=== PATIENT | male | born 1960 | race Caucasian/White ===

== ENCOUNTER → 2017-12-17 14:55 | Outpatient (CLI) | payer BC, SELFPAY ==
[2017-12-17 18:35] LABS: Absolute Lymphocyte Count 1.45 X10^3/ul (0.83-4.51); Absolute Neutrophil Count 3.6 X10^3/uL (2.0-7.7); Basophil# 0.03 X10^3/uL; Basophil% 0.5 % (0-1); Eosinophil# 0.13 X10^3/uL; Eosinophils% 2.2 % (0-5); Hematocrit 44.1 % (40-54); Hemoglobin 15.8 g/dl (13.0-16.5); Lymphocyte # 1.45 X10^3/ul (4.0); Mean Corp Hgb Conc 35.8 g/gl (32-36); Mean Corpuscular Hgb 33.7 pg (27.0-32.0); Mean Platelet Vol. 11.3 fl (6.2-12.0); Monocyte# 0.54 X10^3/uL; Monocyte% 9.3 % (0-10); Neutrophil # 3.63 X10^3/uL (2.7-7.7); Neutrophil % 62.8 % (47-70); Platelet Count 205 K/mm3 (150-450); RBC Distribution Width CV 12.6 % (11.6-14.6); RBC Distribution Width SD 42.3 fl (35.1-43.9); Red Blood Count 4.69 M/mm3 (4.6-6.2); White Blood Count 5.8 K/mm3 (4.4-11.0)
[2017-12-17 18:54] LABS: AST(SGOT) 32 U/L (15-37); Alanine Aminotransfer ALT/SGPT 48 U/L (16-61); Albumin, Serum 3.6 g/dL (3.2-5.0); Alkaline Phosphatase 102 U/L (45-117); Anion Gap 10 (5-15); BUN 24 mg/dL (7-18); BUN/Creat Ratio 31.5 RATIO (10-20); Calcium,Total 9.2 mg/dL (8.5-10.1); Chloride 107 mmol/L (98-107); Cholesterol 211 mg/dL (200); Creatinine, Serum 0.76 mg/dL (0.70-1.30); EST Glomerular Filtration Rate 111 mL/min (>60); Est Glom Filt Rate - Afr Amer 135 mL/min (>60); GGTP 76 U/L (15-85); Globulin 3.5 g/dL (2.2-4.2); Glucose 106 mg/dL (74-106); High Density Lipoprotein 40 mg/dL; Potassium 3.6 mmol/L (3.5-5.1); Protein, Total 7.1 g/dL (6.4-8.2); Sodium Level 142 mmol/L (136-145); Triglycerides 499 mg/dL
[2017-12-17 18:55] LABS: POSITIVE COUNT NO; POSITIVE DIFFERENTIAL NO; POSITIVE MORPHOLOGY NO
[2017-12-17 19:58] LABS: Vitamin D,25 Hydroxy 15.3 ng/mL (19.95-100.01)
== END ==
PROVIDERS: Family Provider Family Medicine; PCP Family Medicine; Visit Provider Family Medicine
DX: I10 Essential (primary) hypertension (principal); F10.10 Alcohol abuse, uncomplicated
CPT/HCPCS: 36415; 80053; 80061; 82306; 82977; 85025

== ENCOUNTER 2018-02-10 09:37 | Observation (INO) | payer BC, SELFPAY ==
[2018-02-10] VITALS (15 sets, daily range): BP systolic 127–187; BP diastolic 82–116; PULSE 65–95; RESP 13–18; TEMP 36.3–36.8; O2SAT 94–100; BMI 31.1; BMI 30.4; BMI 30.5
--- NOTE | 2018-02-10 09:49 | EKG12_ITS ---
Test Reason : CP Blood Pressure : / mmHG Vent. Rate : 086 BPM Atrial Rate : 086 BPM P-R Int : 144 ms QRS Dur : 080 ms QT Int : 352 ms P-R-T Axes : 030 -25 030 degrees QTc Int : 421 ms Normal sinus rhythm Normal ECG Confirmed by KINJAL PHELAN MD ([id number]), department editor ANABEL BOWMAN ([id number]) on 02/14/2018 1:58:05 PM Referred By: ALVIN Confirmed By:KINJAL PHELAN MD
--- NOTE | 2018-02-10 09:53 | RAD_ITS ---
STUDY: X-RAY CHEST REASON FOR EXAM: Male, 57 years old. Chest pain. TECHNIQUE: Single AP portable view of the chest. COMPARISON: 07/16/2015. FINDINGS: There is mild elevation of the right hemidiaphragm. There are mild hypoventilatory changes in the right lung base. No focal infiltrate is seen. There is no demonstrated pleural abnormality. Normal size heart. Normal mediastinum and pilar. Normal visualized pulmonary arteries. Normal visualized aortic arch and descending thoracic aorta. The thoracic spine is obscured. Normal visualized ribs, clavicles, and shoulders. There is no demonstrated abnormality of the visualized soft tissue structures of the upper abdomen. RAD/Chest 1 View (Portable) IMPRESSION: No active pulmonary disease. Electronically Signed: Lawrence Currie MD at 10:27 EDT Tel , Service support ,
[2018-02-10 10:02] LABS: Absolute Lymphocyte Count 1.28 X10^3/ul (0.83-4.51); Absolute Neutrophil Count 2.9 X10^3/uL (2.0-7.7); Basophil# 0.02 X10^3/uL; Basophil% 0.4 % (0-1); Eosinophils% 2.2 % (0-5); Hematocrit 43.3 % (40-54); Hemoglobin 15.1 g/dl (13.0-16.5); Lymphocyte # 1.28 X10^3/ul (4.0); Lymphocyte % 27.6 % (19-41); Mean Corp Hgb Conc 34.9 g/gl (32-36); Mean Corpuscular Hgb 33.4 pg (27.0-32.0); Mean Corpuscular Volume 95.8 fL (80-94); Mean Platelet Vol. 10.4 fl (6.2-12.0); Monocyte# 0.34 X10^3/uL; Monocyte% 7.3 % (0-10); Neutrophil # 2.89 X10^3/uL (2.7-7.7); Neutrophil % 62.5 % (47-70); POSITIVE COUNT NO; POSITIVE DIFFERENTIAL NO; POSITIVE MORPHOLOGY NO; Platelet Count 178 K/mm3 (150-450); RBC Distribution Width CV 13.3 % (11.6-14.6); RBC Distribution Width SD 46.2 fl (35.1-43.9); Red Blood Count 4.52 M/mm3 (4.6-6.2); White Blood Count 4.6 K/mm3 (4.4-11.0)
[2018-02-10 10:14] LABS: D-Dimer Quantitative (DVT/PE) 0.38 FEU/ug/m (0.27-0.49)
[2018-02-10 10:21] LABS: Anion Gap 7 (5-15); BUN 25 mg/dL (7-18); BUN/Creat Ratio 30.3 RATIO (10-20); Chloride 106 mmol/L (98-107); Creatinine, Serum 0.82 mg/dL (0.70-1.30); EST Glomerular Filtration Rate 102 mL/min (>60); Est Glom Filt Rate - Afr Amer 123 mL/min (>60); Estimated Creatinine Clearance 88.61 ml/min; Glucose 108 mg/dL (74-106); Potassium 3.6 mmol/L (3.5-5.1); Sodium Level 142 mmol/L (136-145)
[2018-02-10] MEDS: 0.9% Normal Saline 1,000 ML 150 ML IV (10:36)
[2018-02-10] MEDS: Nitroglycerin Oint 1 INCH PACKET TRANSDERM. (11:03)
--- NOTE | 2018-02-10 11:03 | NURSING ---
DR TONIE BLANK
--- NOTE | 2018-02-10 11:09 | ED.VISSUMM ---
- ER Visit Summary Date of Service: 02/10/18 Chief Complaint: [Chest pain] History of Present Illness: The patient is a 57 M [presents the emergency department with chest pain that started yesterday. Patient states the pains been relatively continuous and describes a dull tightness and pressure like somebody is pushing on his chest. Patient describes radiation into both armpits. Patient currently rates his pain a 5 out of 10. Patient has some mild dyspnea. Patient denies any nausea or vomiting or diaphoresis. Patient denies recent travel or surgery. Patient is never had discomfort like this before. Patient has history of hypertension. There is no family history of heart disease. Patient is a smoker.] Physical Examination: [HEENT-PERRLA, EOMI. Cranial nerves II through XII grossly intact. TMs clear. Mucous membranes moist. No adenopathy. Cardiovascular-regular rate and rhythm without murmur or ectopy Lungs-clear to auscultation, chest wall stable without crepitus or subcu emphysema Abdomen-normoactive bowel sounds, soft, nontender, no rebound or rigidity, no peritoneal signs. Extremities-intact ?4, normal range of motion, normal pulses, atraumatic] Test Results: [EKG obtained on arrival showed a sinus rhythm with a ventricular rate of 86 bpm with no acute ST segment changes. CBC with differential was normal. Chemistries were normal. Troponin was less than 0.02. D-dimer was normal. Chest x-ray showed nothing acute.] Emergency Department Course and Treatment: [Patient took aspirin at home yesterday to full doses. Patient received 2 sublingual nitro that completely resolved his pain and he had an inch of Nitropaste placed to the anterior chest wall.] Treatment Plan: [Admit for further workup and evaluation] Disposition: [Admit] Impression: [Chest pain-rule out acute coronary syndrome] This note was generated with [employer] dictation software. It may contain incorrect words, spelling, and punctuation that were not noted in review of the chart prior to signing ED Disposition - Plan for ED Patient: Chief Complaint: Chest Pain Referrals: Alexy Mclean MD [Primary Care Provider] -
--- NOTE | 2018-02-10 11:17 | NURSING ---
PCU CP OBS SEMENTI
[2018-02-10 13:21] LABS: AST(SGOT) 40 U/L (15-37); Alanine Aminotransfer ALT/SGPT 56 U/L (16-61); Albumin, Serum 3.5 g/dL (3.2-5.0); Alkaline Phosphatase 122 U/L (45-117); Bilirubin, Direct 0.23 mg/dL (0.00-0.30); Globulin 3.7 g/dL (2.2-4.2); Magnesium 1.9 mg/dL (1.6-2.6); Protein, Total 7.2 g/dL (6.4-8.2)
[2018-02-10 13:35] LABS: Hemoglobin A1c 5.7 % (4.2-6.3)
[2018-02-10] MEDS: Acetaminophen 325 MG Tablet 650 MG PO (13:58)
--- NOTE | 2018-02-10 14:11 | PCM.HP.STD ---
Problem List (1) Chest pain Status: Acute (2) HTN (hypertension) Status: Chronic (3) Nicotine abuse Status: Chronic History of Present Illness Date of Admission: 02/10/18 Chief Complaint: chest pain The patient is a 57 year old M with a hx of HTN, nicotine abuse, who presents to the ER with chest pain that began yesterday afternoon. He described it as a sudden onset of 5/10 midsternal pressure and tightness. It was constant until he laid down in the evening which gave him some relief. 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 He had radiation into his back and BL axillae. He denies nausea/vomiting/diaphoresis/dizziness/LH/palpitations. His blood pressure was significantly elevated in the ER. In the ER he was given Nitro with good relief of his CP. He has none currently during the interview. He has a hx of HTN and notes recently he was supposed to have tubes placed in his left ear but it was cancelled as his BP was out of control. He smokes, and has done so since he was a teenager. He also drinks, reporting 4-5 beers plus a couple shots of liquor maybe not every night. He currently has a headache that began after receiving nitro. He does not desire a nicotine patch. [] Past Medical History Past Medical History (Chronic Problems): Chronic Problems HTN (hypertension) (Chronic) Nicotine abuse (Chronic) Allergies No Known Allergies Allergy (Verified 05/09/16 09:47) Home Medications: Ambulatory Orders Medication Instructions Recorded Losartan Potassium [Cozaar] 50 mg PO DAILY #30 tablet 05/09/16 Hydrochlorothiazide [Hctz] 25 mg PO DAILY 02/10/18 Metoprolol Succinate [Toprol Xl] 25 mg PO DAILY 02/10/18 Surgical History: - - ear tubes, jaw repair Psychiatric History: No pertinent psych hx Lives: With Family Smoking Status: Current every day smoker Tobacco Use: Cigarettes Alcohol: Heavy Drugs: None - *Family History Maternal History Items: Heart Disease Paternal History Items: Heart Disease Review of Systems Constitutional: Denies: Chills, Fever, Weakness, Weight Change, Fatigue HEENT: Reports: Hard of Hearing, Head Aches. Denies: Sinus Congestion, Sinus Drainage Cardiovascular: Reports: Chest Pain, Chest Pressure, Chest Tightness. Denies: Edema, Heaviness, Light Headedness, Palpitations, Syncope Respiratory: Reports: Shortness of Breath, Shortness of breath upon exertion. Denies: Cough, Shortness of breath at rest, Sputum production, Wheezing Gastrointestinal: Denies: Abdominal Pain, Nausea, Vomiting Genitourinary: Denies: Dysuria Musculoskeletal: Denies: Joint Pain, Joint Tenderness Skin: Denies: Rash, Wounds Neurological: Denies: Numbness, Tingling, Focal weakness Psychiatric: Denies: Anxiety, Depression, Homicidal Ideations, Suicidal Ideations Hematologic/ Lymphatic: Denies: Easy Bruising, Easy Bleeding VTE Information - Inpt Only VTE Present on Admission: No VTE Mechan Device Prophylaxis: SCD's VTE Pharm Prophylaxis ordered?: Yes Patient Problems: Active and Suspected Problems Chest pain (Acute) - Physical Exam General: Alert, Oriented x3, Cooperative HEENT: Atraumatic, PERRLA, EOMI, Normocephalic Neck: Supple, No JVD, Negative Carotid Bruits Lungs: Clear to auscultation, Normal air movement Cardiovascular: Regular rate, No murmurs Abdomen: Bowel Sounds Present, Soft, Non Tender Extremities: No edema, Capillary Refill Less than 3 Seconds Skin: No rashes, No breakdown Musculoskeletal: No Tenderness to Palpation of Joints or Extremities Neurological: Cranial nerves II-XII grossly intact Psych/Mental Status: Normal Affect, Appropriate, Alert and oriented to time, place, person, mood and affect Vital Signs Temp Pulse Resp BP Pulse Ox 97.8 F 83 18 129/86 H 94 02/10/18 13:00 02/10/18 13:31 02/10/18 13:00 02/10/18 13:00 02/10/18 13:00 Oxygen Delivery Method Room Air Weight: 85.7 kg Body Mass Index (BMI) 30.4 Laboratory Tests Past 24 Hrs 02/10/18 14:00 Troponin I Pending Assessment/Plan Active and Suspected Problems Chest pain (Acute) 1. Chest pain - risk factors include symptomatology, response to nitro, age, male, smoker, HTN, + family hx, high alcohol consumption, borderline diabetes. Aspirin, continue losartan, toprol, adjust as needed, cycle enzymes, prn nitro, lipid profile, repeat EKG in AM, stress test in AM. A1C is 5.7 - borderline. We discussed the need for dietary modification and the risk of diabetes in heart disease. If he has underlying coronary disease we should consider starting metformin low dose. -EKG negative -Trop neg -CXR neg -D Dimer neg 2. HTN - severe in ER. Trend and adjust as needed. 3. Nicotine abuse - encouraged cessation - declines patch. 4. At risk alcohol consumption - 4-5 beers/night + 2 shots hard liquor. monitor for withdrawal and start CIWA protocol if indicated. DVT ppx: lovenox DC planning: pending stress results This patient was seen by Javid Thao PA-C under the supervision of Doctor Collazo.
[2018-02-10] MEDS: Enoxaparin 40 MG/0.4 ML Syringe SC (17:12)
[2018-02-11] VITALS (7 sets, daily range): BP systolic 136–147; BP diastolic 85–100; PULSE 60–90; RESP 16–18; TEMP 36.6–36.8; O2SAT 95–98
[2018-02-11 05:31] LABS: Absolute Lymphocyte Count 1.37 X10^3/ul (0.83-4.51); Absolute Neutrophil Count 2.6 X10^3/uL (2.0-7.7); Basophil# 0.03 X10^3/uL; Basophil% 0.7 % (0-1); Eosinophil# 0.16 X10^3/uL; Eosinophils% 3.5 % (0-5); Hemoglobin 14.6 g/dl (13.0-16.5); Lymphocyte # 1.37 X10^3/ul (4.0); Lymphocyte % 30.4 % (19-41); Mean Corp Hgb Conc 35.6 g/gl (32-36); Mean Corpuscular Hgb 33.6 pg (27.0-32.0); Mean Corpuscular Volume 94.5 fL (80-94); Mean Platelet Vol. 10.6 fl (6.2-12.0); Monocyte# 0.39 X10^3/uL; Monocyte% 8.6 % (0-10); Neutrophil # 2.55 X10^3/uL (2.7-7.7); Neutrophil % 56.6 % (47-70); Platelet Count 180 K/mm3 (150-450); Prothrombin Time (Protime)PT. 13.4 SECONDS (11.7-14.9); RBC Distribution Width CV 12.7 % (11.6-14.6); RBC Distribution Width SD 42.7 fl (35.1-43.9); Red Blood Count 4.34 M/mm3 (4.6-6.2); White Blood Count 4.5 K/mm3 (4.4-11.0)
[2018-02-11 05:32] LABS: Partial Thromboplast Time 28.9 Seconds (24.1-36.2)
[2018-02-11 05:39] LABS: POSITIVE COUNT NO; POSITIVE DIFFERENTIAL NO; POSITIVE MORPHOLOGY NO
[2018-02-11 05:45] LABS: Anion Gap 8 (5-15); BUN 22 mg/dL (7-18); BUN/Creat Ratio 30.3 RATIO (10-20); Calcium,Total 8.4 mg/dL (8.5-10.1); Chloride 106 mmol/L (98-107); Cholesterol 168 mg/dL (200); Creatinine, Serum 0.72 mg/dL (0.70-1.30); EST Glomerular Filtration Rate 118 mL/min (>60); Est Glom Filt Rate - Afr Amer 143 mL/min (>60); Estimated Creatinine Clearance 100.92 ml/min; Glucose 102 mg/dL (74-106); High Density Lipoprotein 35 mg/dL; Potassium 3.6 mmol/L (3.5-5.1); Sodium Level 141 mmol/L (136-145); Triglycerides 205 mg/dL; Very Low Density Lipoprotein 41 mg/dL (5-40)
--- NOTE | 2018-02-11 05:55 | EKG12_ITS ---
Test Reason : Blood Pressure : / mmHG Vent. Rate : 066 BPM Atrial Rate : 066 BPM P-R Int : 166 ms QRS Dur : 084 ms QT Int : 392 ms P-R-T Axes : 031 -17 006 degrees QTc Int : 410 ms Normal sinus rhythm Normal ECG When compared with ECG of 10-FEB-2018 09:44, MANUAL COMPARISON REQUIRED, DATA IS UNCONFIRMED Confirmed by TAPAN MELENDEZ, KINJAL ([id number]), communications editor ANABEL BOWMAN ([id number]) on 02/14/2018 2:05:56 PM Referred By: Confirmed By:KINJAL PHELAN MD
[2018-02-11] MEDS: Losartan Potassium 50 MG Tablet PO (06:13)
[2018-02-11] MEDS: Aspirin E.C. 81 MG Tablet PO (06:13)
--- NOTE | 2018-02-11 09:32 | STRESSREP_ITS ---
Stress Test Report Exercise myocardial perfusion stress test. 57-year-old man with a history of chest pain. Stress protocol: Resting EKG demonstrates normal sinus rhythm with a rate of 75 bpm normal intervals and noted resting blood pressure is 182 of 104 mmHg. The patient exercised according to the regular Francisco protocol for total duration of 7 minutes completing 1 minute into stage III of the Francisco protocol. The maximum heart rate attained was 150 bpm which was 92% of maximum predicted heart rate the maximum workload attained was 8.5 metabolic equivalents. At rest there were no ST or T-wave changes noted suggest ischemia peak exercise no ST or T- wave changes were noted suggest ischemia. No clinical angina was noted and the test was terminated due to leg fatigue. The resting blood pressure is 180 204 with a peak blood pressure 190/100 mmHg. Resting hypertension is noted. Myocardial perfusion protocol: 11.9 mCi of technetium 99m sestamibi was injected at rest. The patient exercised according to regular Francisco protocol for total duration of 7 minutes. At peak exercise 33.6 mCi of technetium 99m sestamibi was injected stress images were obtained stress and rest images were reconstructed and compared in the short axis vertical long and horizontal long axis. Gated images were also obtained. Perfusion SPECT analysis. Review of the stress images demonstrated normal uptake of tracer noted in all areas of the myocardium. The resting images similarly demonstrate normal uptake of tracer noted in all areas of the myocardium. No areas of reversibility are noted suggest ischemia. No previous infarct is noted. Gated SPECT analysis: The gated ejection fraction is 69%. Conclusion: Normal exercise myocardial perfusion stress test at a moderate to high workload. No clinical angina noted. Preserved ejection fraction.
[2018-02-11] MEDS: Enoxaparin 40 MG/0.4 ML Syringe SC (09:47)
[2018-02-11] MEDS: Metoprolol(XL)Succ 25 MG Tablet PO (09:49)
--- NOTE | 2018-02-11 11:31 | DCINST_ITS ---
- Discharge Diagnoses Current Active Problems: Current Active and Chronic Problems Chest pain (Acute) HTN (hypertension) (Chronic) Nicotine abuse (Chronic) You will use the following diet at home:: Calorie/Carbohydrate Controlled ( specify 1200, 1400, etc) - 1800 ela / day, Cardiac - 2 g sodium per day, low cholesterol Your food should be the consistency of: Regular Your liquids should be the consistency of: Regular/Thin Discharge Activity: Return to Normal Activity Allergies/Adverse Reactions: Allergies No Known Allergies Allergy (Verified 05/09/16 09:47) Medications to take at Discharge Losartan Potassium [Cozaar] 50 mg PO DAILY #30 tablet 05/09/16 Aspirin E.C. [Ecotrin] 81 mg PO DAILY@0800 tablet 02/11/18 Metoprolol Succinate [Toprol Xl] 50 mg PO DAILY #30 tab.er.24h 02/11/18 The following prescriptions were given: Metoprolol Succinate [Toprol Xl] 50 mg PO DAILY #30 tab.er.24h Primary Care Physician: Alexy Mclean MD [Primary Care Provider] - Please follow up with your Primary Care Physician in: 1-2 weeks Proposed Discharge Date: 02/11/18
--- NOTE | 2018-02-11 12:21 | NURSING ---
Reviewed and agreed on all charting with Linda Agustin RN
--- NOTE | 2018-02-11 13:47 | PCM.DC.SUM ---
Discharge Date and Diagnosis Date of Admission: 02/10/18 Date of Discharge: 02/11/18 - Primary Discharge Diagnosis Chest pain - musculoskeletal HTN Dehydration Nicotine abuse - Secondary Discharge Diagnosis Chronic Problems HTN (hypertension) (Chronic) Nicotine abuse (Chronic) Hospital Course and Treatment Imaging Results: 02/11/18 05:55 Nuclear Stress Test - Treadmil [NM] AM (NON MEDS) Operations: None Procedures: Stress test Summary of Care Provided: Physical exam on day of discharge: General: Resting comfortably NAD Psych: A/Ox3 normal affect HEENT: PEARRLA AT NC Neck: Supple NT CV: RRR no m/t/r/g/h Resp: CTA Abd: [id number] Soft NT no guarding or rigidity Ext: DP2+= no edema Skin: W/D normal turgor Lymph/Heme: No active bleeding or adenopathy Neuro: CN2-12 intact Hospital course: The patient is a 57 year old M with a hx of nicotine abuse, HTN, with at risk drinking behavior, who presented to the ER with chief complaint of severe midsternal chest pain described as pressure radiating into the back and BL axilla, worse with exertion, better at rest, with associated SOB. On arrival to the ED he was given nitro with significant relief. He had a negative EKG and negative troponin, negative chest xray. BMP showed mild dehydration. He was admitted for CP rule out as he had many risk factors including the nature of his symptoms, age, sex, family history, HTN that was significantly elevated in the ER, long smoking hx, and heavy drinking. He was admitted and maintained on the color television console monitor, troponins repeated, lipid panel taken, repeat EKG, and stress test in the AM. The workup was negative. LDL was 92. Glucose was somewhat elevated so A1C was checked which was borderline prediabetes at 5.7. His HCTZ was discontinued as he was dehydrated, and as his blood pressure was poorly controlled, his metoprolol was increased. We discussed a low sodium and low carb diet, and the importance of nicotine cessation. He was discharged home in stable condition and will follow up with his PCP in 1-2 weeks. This patient was seen by Javid Thao PA-C under the supervision of Doctor Vale. [] Discharge Diet: Low fat/ Low Cholesterol, 1800 Calorie Control Diet, 2000 mg Sodium Diet Discharge Activity: Return to Normal Activity Home Medications: Medications to take at Discharge Losartan Potassium [Cozaar] 50 mg PO DAILY #30 tablet 05/09/16 Aspirin E.C. [Ecotrin] 81 mg PO DAILY@0800 tablet 02/11/18 Metoprolol Succinate [Toprol Xl] 50 mg PO DAILY #30 tab.er.24h 02/11/18 Following Prescrptions Were Given to Patient: Metoprolol Succinate [Toprol Xl] 50 mg PO DAILY #30 tab.er.24h Primary Care Physician: Alexy Mclean MD [Primary Care Provider] - Please follow up with your Primary Care Physician in: 1-2 weeks Please Follow Up With: Alexy Mclean MD When: 1-2 weeks Disposition: Home Minutes spent on discharge:: 35 Patient Condition:: Stable Medical Necessity - Tobacco Use Smoking Status: Current every day smoker Tobacco Use: Cigarettes Meaningful Use Info Meaningful Use Diagnoses (Choose all that apply): None applicable
== END 2018-02-11 11:30 | disposition home or self-care (01) ==
LOC: ED 10:21 → PCU 11:38
PROVIDERS: Admitting Provider Internal Medicine; Emergency Provider Emergency Medicine; Family Provider Family Medicine; PCP Family Medicine; Visit Provider Internal Medicine
DX: R07.89 Other chest pain (principal); I10 Essential (primary) hypertension; R06.00 Dyspnea, unspecified; F17.210 Nicotine dependence, cigarettes, uncomplicated; Z79.899 Other long term (current) drug therapy; E86.0 Dehydration
CPT/HCPCS: 36415; 71045; 78452; 80048; 80061; 80076; 83036; 83735; 84484; 85025; 85379; 85610; 85730; 93005; 93017; 96360; 96372; 97802; 99218; 99283; 99406; A9500; A4216; G0378

== ENCOUNTER → 2018-10-14 15:57 | Outpatient (CLI) | payer BC, SELFPAY ==
[2018-02-10 13:03] VITALS: BMI 30.4
--- NOTE | 2018-10-14 16:01 | RAD_ITS ---
STUDY: X-RAY - LEFT SHOULDER REASON FOR EXAM: Male, 58 years old. Shoulder pain TECHNIQUE: 4 view(s) of the shoulder. COMPARISON: March 17, 2014 FINDINGS: Normal glenohumeral articulation. There are degenerative changes of the acromioclavicular joint. Normal acromion. Normal humeral head and visualized proximal humerus. The soft tissue structures are unremarkable. Normal visualized pulmonary apex. RAD/Shoulder min 2 Views IMPRESSION: Degenerative changes of the acromioclavicular joint. Electronically Signed: Jane Adame MD at 8:47 EST Tel , Service support ,
--- NOTE | 2018-10-14 16:01 | RAD_ITS ---
STUDY: X-RAY - CERVICAL SPINE REASON FOR EXAM: Male, 58 years old. Left shoulder pain TECHNIQUE: 5 view(s) of the cervical spine were obtained. COMPARISON: None FINDINGS: Osteopenia. Craniofacial osseous structures within the field of view exhibit no acute process. Apical lungs, apical thoracic cage unremarkable. Odontoid and lateral masses intact and aligned without degeneration. Mild multilevel facet arthropathy. On oblique views, a cardiogenic hypertrophy and mild facet arthropathy contributes to foraminal narrowing at C3-C4 and C4-C5 and C6-C7 bilaterally. Normal vertebral body height and alignment with preserved lordosis. C3-C4 mild disc narrowing and uncovertebral joint hypertrophy. C4-C5 moderate disc narrowing and uncovertebral joint hypertrophy. C6-C7 mild disc narrowing and uncovertebral joint hypertrophy. Next line prevertebral soft tissues normal. RAD/Cerv Spine 4 or 5 Views IMPRESSION: Cervical spondylosis with degenerative disc features most notable at C3-C4, C4-C5, C6-C7 as described in detail above. An oblique views there is evidence of mild bony foraminal narrowing secondary to uncovertebral joint hypertrophy at C3-C5, and at C6-C7. These features could be associated with underlying disc bulging and clinically significant stenosis or nerve root impingement cannot be entirely excluded. Correlate for any clinically convincing symptoms of cervical radiculopathy. Electronically Signed: Nabor Austin MD at 17:22 EST Tel , Service support ,
--- OUTSIDE RECORDS SUMMARY | 2018-12-01 00:56 | XMS RPT_ITS ---
:1960 Author Organization [place] Care Team Providers Name Role Phone Vinay, Yuanopher Attending Unavailable Ranney, Christopher Referring Unavailable Ranney, Christopher Primary Care Unavailable Ranney, Christopher Attending Unavailable Ranney, Christopher Primary Care Unavailable Ranney, Christopher Referring Unavailable Ranney, Christopher Attending Unavailable Ranney, Christopher Primary Care Unavailable Ranney, Christopher Primary Care Unavailable Sementi, Princess Admitting Unavailable Sementi, Princess Attending Unavailable Sementi, Princess Admitting Unavailable Ranney, Christopher Primary Care Unavailable Sementi, Princess Consulting Unavailable Sementi, Princess Attending Unavailable Sementi, Princess Admitting Unavailable Master, Javid Attending Unavailable Ranney, Christopher Primary Care Unavailable Sementi, Princess Consulting Unavailable Chiara, [place] Attending Unavailable Sementi, Princess Referring Unavailable Chiara, Juan Jose Attending Unavailable PROBLEMS PROBLEMS DATE TYPE CONDITION / CODE ATTENDING STATUS SOURCE 11/25/2018 Unknown M50.30 - Other Ranney, Active [place] cervical disc [facility] degeneration, [facility] unspecified Repository cervical region / M50.30(ICD-10) 03/05/2018 Unknown R07.9 - Chest Chiara, [place] Active [place] pain, unspecified Community / R07.9(ICD-10) Hospital Repository PROCEDURES PROCEDURES No Procedure Records FoundRESULTS RESULTS INITAL EVALUATION (1) Observed: 11/07/2018 Status: F Source: [place] - PT 6:04 PM [facility] REPOSITORY [facility] Physical Therapy Health[address] [place] [address] / REHABILITATION SERVICES INITIAL EVALUATION MR#: [id number] Acct: [id number] Name: GIANFRANCO GUADARRAMA Rep #: [id number] : 1960 58 From: Paulo Wing PT, Cert. T, [facility] Referring Dr.: Aime Mclean MD Status: REG [facility] Insurance: [employer] SEL[employer] PAY INSURANCE Patient's Visit Information GIANFRANCO GUADARRAMA is a 58 year old M referred to Physical Therapy by Alexy Mclean MD with a diagnosis of CERVICAL DDD. Date of Evaluation: 11/07/18 Physical Therapist: Paulo Wing PT, Cert MDT, OCS - Visit Plan Frequency: 2x /Week Duration: 4 Weeks Plan: ICTX 16#-22# pull,US/CP,CERVICAL POSTURAL EX'S MANUAL THERAPY- CERVICAL TRACTION - Subjective Findings: This 58 y/o male presents with physical therapy with cervical DDD. Patient developed left shoulder pain several year 3 months. Patient symptoms progressively worse. Patient had symptoms in left shoulder 6 years ago. Patient has seen chiropractor for cervical/lumbar. Symptoms worse with at night ,lifting work demands. Symptoms better with rest. Patient denies parathesia/tingling. Patient has dull pain ache. No trauma . No injection. Denies ALLEN ,tinnutis/nausea. Symptoms affect sleep. Patient symptosm affect QOL and job demands. VOCATION: [employer]. SOCIAL: - Pain Left Shoulder Pain Intensity (Out of 10): 6 Pain Intensity Range: 10 - Objective POSTURE: mild rounded shoulders. NEURO: denies parthesia/tingling,reflexes C5-6-7 2/3,mytomes inact. PALAPTION: unremarkable. AROM SHOULDER : flexion 160,abduction 160 degrees,ER 90,IR 85. MMT: RTC 5/5,DELTOID ,4/5. CERVICAL ROM: flexion min loss,lateral/flexion mod loss pain to left,extension mod loss - Special Tests C/S Radiculapathy - Left Upper limb tension test: Negative C/S Radiculapathy - Right Upper limb tension test: Negative C/S Radiculapathy - Left Spurlings: Negative C/S Radiculapathy - Right Spurlings: Positive C/S Radiculapathy - Left Cervical distraction: Negative C/S Radiculapathy - Right Cervical distraction: Negative Sharp Glenn: Negative Vertebral Artery Test: Negative Alar Ligament Test: Negative Cervical Sitting: Protrusion - Mechanical Response: No effect Cervical Sitting: Protrusion - Symptoms During Testing: No effect Cervical Sitting: Protrusion - Symptoms After Testing: No effect Cervical Sitting: Retraction - Mechanical Response: No effect Cervical Sitting: Retraction - Symptoms During Testing: Increases Cervical Sitting: Retraction - Symptoms After Testing: No worse Cervical Sitting: Retraction-Extension - Mechanical Response: No effect Cerv Sitting: Retraction-Extension - Symptoms During Testing: Increases Cerv Sitting: Retraction-Extension - Symptoms After Testing: No worse Cervical Sitting: Sidebend Right - Mechanical Response: No effect Cervical Sitting: Sidebend Right - Symptoms During Testing: No effect Cervical Sitting: Sidebend Right - Symptoms After Testing: No effect Cervical Sitting: Sidebend Left - Mechanical Response: No effect Cervical Sitting: Sidebend Left - Symptoms During Testing: Increases Cervical Sitting: Sidebend Left - Symptoms After Testing: No worse Cervical Sitting: Rotation Right - Mechanical Response: No effect Cervical Sitting: Rotation Right - Symptoms During Testing: No effect Cervical Sitting: Rotation Right - Symptoms After Testing: No effect Cervical Sitting: Rotation Left - Mechanical Response: No effect Cervical Sitting: Rotation Left - Symptoms During Testing: Increases Cervical Sitting: Rotation Left - Symptoms After Testing: No worse R Shoulder Supine Impingement Test - RC Tear: Negative R Shoulder Drop Sign - IS Test: Negative R Shoulder Empty Can - SS: Negative R Shoulder Belly Press - SupScap: Negative R Shoulder Neer - Impingement: Negative R Shoulder Koroma Rafa - Impingement: Negative - Goals Goal 1:: Patient to be Independant with HEP. Goal Time Frame: 4-6 Weeks Goal 2:: Patient to improve posture for ADL'S. Goal Time Frame: 4-6 Weeks Goal 3:: Decrease cervical radiculopathy with shoulder symptoms by 50% or greater to improve function. Goal Time Frame: 4-6 Weeks Goal 4:: Patient to improve cervical ROM for function of recovery Goal Time Frame: 4-6 Weeks Goal 5:: Patient to improve cervial ELIER score by 5 points or greater to improve QOL. Goal Time Frame: 4-6 Weeks - Rehabilitation Potential Physical Therapy Diagnosis: This patient has cervical radiculopathy with symptoms to left shoulder worse with movement,impairs ADLS ,job demands and difficulty with sleeping Rehabilitation Potential: Good - Anticipated Interventions Patient/Client Instruction: Educate patient on: Condition, Plan of Care For the Purpose of:: To decrease pain, To increase ROM, To improve muscle performance and motor function, To improve ability to perform ADL's, To increase tolerance to activity/condition/position, To improve ability of physical actions for home/community/work/leisure, To improve health of tissue, To decrease soft tissue restriction, To increase flexibility/ROM, To reduce risk of recurrence, To improve ability to perform tasks related to life management Therapeutic Exercise to Include: Strength training, Postural training, Flexibilty training, Active ROM, Win Exercises For the Purpose of:: To decrease pain, To increase ROM, To improve muscle performance and motor function, To improve ability to perform ADL's, To improve ability of physical actions for home/community/work/leisure, To improve health of tissue, To decrease soft tissue restriction, To increase flexibility/ROM, To improve ability to perform tasks related to life management Manual Therapy Techniques to Include: Mobilization Comment: CERVICAL TRACTION For the Purpose of:: To decrease pain, To increase ROM, To improve muscle performance and motor function, To increase tolerance to activity/condition/position, To improve health of tissue, To decrease soft tissue restriction TENS: Yes IF ES: Yes Cryotherapy (ice pack, ice massage): Yes Thermo therapy (hot pack): Yes Ultrasound (thermal/non thermal): Yes Intermittent cervical traction: Yes - 16#-22# For the Purpose of:: To decrease pain, To increase ROM, To improve nutrient delivery to tissue, To increase oxygenation perfusion, To improve health of tissue, To decrease soft tissue restriction Thank you for the opportunity to evaluate your patient. For Medicare and Medicare HMO plans, please review the plan of care and approve it. It will need to be FAXED BACK to us at [phone] for Medicare purposes. For Medicare only, by signing this I certify the plan of care. Please let me know if there are questions or concerns regarding this plan of care. Physician Signature: Date: <Electronically signed by Paulo Wing PT, Cert. T, OCS> 11/07/18 1804 CC: Aime Mclean MD LYNSEY Signed SHOULDER MIN 2 VIEWS Observed: 10/14/2018 Status: F Source: [place] 4:01 PM [facility] REPOSITORY [facility] Imaging Services [address] [place] [address] Shoulder min 2 Views MR#: [id number] Acct: [id number] Name: GIANFRANCO GUADARRAMA Rep #: [id number] : 1960 M 58 From: Jane Adame MD PCP: Aime Mclean MD Status: REG CLI Study: Shoulder min 2 Views Date of Exam: 10/14/18 Exam# [id number] Ordering Dr: Alexy Mclean MD STUDY: X-RAY - LEFT SHOULDER REASON FOR EXAM: Male, 58 years old. Shoulder pain TECHNIQUE: 4 view(s) of the shoulder. COMPARISON: March 17, 2014 FINDINGS: Normal glenohumeral articulation. There are degenerative changes of the acromioclavicular joint. Normal acromion. Normal humeral head and visualized proximal humerus. The soft tissue structures are unremarkable. Normal visualized pulmonary apex. RAD/Shoulder min 2 Views IMPRESSION: Degenerative changes of the acromioclavicular joint. Electronically Signed: Jane Adame MD at 8:47 EST Tel , Service support , CC: Aime Mclean MD Real Estate Closing Coordinator: Signed CERV SPINE 4 OR 5 Observed: 10/14/2018 Status: F Source: [place] VIEWS 4:01 PM [facility] REPOSITORY [facility] Imaging Services [address] [place] [id number] Cerv Spine 4 or 5 Views MR#: [id number] Acct: [id number] Name: GIANFRANCO GUADARRAMA Rep #: [id number] : 1960 M 58 From: Nabor Austin MD PCP: Aime Mclean MD Status: REG CLI Study: Cerv Spine 4 or 5 Views Date of Exam: 10/14/18 Exam# [id number] Ordering Dr: Alexy Mclean MD STUDY: X-RAY - CERVICAL SPINE REASON FOR EXAM: Male, 58 years old. Left shoulder pain TECHNIQUE: 5 view(s) of the cervical spine were obtained. COMPARISON: None FINDINGS: Osteopenia. Craniofacial osseous structures within the field of view exhibit no acute process. Apical lungs, apical thoracic cage unremarkable. Odontoid and lateral masses intact and aligned without degeneration. Mild multilevel facet arthropathy. On oblique views, a cardiogenic hypertrophy and mild facet arthropathy contributes to foraminal narrowing at C3-C4 and C4-C5 and C6-C7 bilaterally. Normal vertebral body height and alignment with preserved lordosis. C3-C4 mild disc narrowing and uncovertebral joint hypertrophy. C4-C5 moderate disc narrowing and uncovertebral joint hypertrophy. C6-C7 mild disc narrowing and uncovertebral joint hypertrophy. Next line prevertebral soft tissues normal. RAD/Cerv Spine 4 or 5 Views IMPRESSION: Cervical spondylosis with degenerative disc features most notable at C3-C4, C4-C5, C6-C7 as described in detail above. An oblique views there is evidence of mild bony foraminal narrowing secondary to uncovertebral joint hypertrophy at C3-C5, and at C6-C7. These features could be associated with underlying disc bulging and clinically significant stenosis or nerve root impingement cannot be entirely excluded. Correlate for any clinically convincing symptoms of cervical radiculopathy. Electronically Signed: Nabor Austin MD at 17:22 EST Tel , Service support , CC: Aime Mclean MD Real Estate Closing Coordinator: Signed DISCHARGE SUMMARY Observed: 02/19/2018 Status: F Source: [place] 6:19 PM [facility] REPOSITORY [facility] Medical Records Department [facility] [place] [address] Discharge Summary 02/11/18 1347 MR#: [id number] Acct: [id number] Name: GIANFRANCO GUADARRAMA Rep #: [id number] : 1960 57 From: Javid JAMISON PCP: Aime Mclean MD Status: DIS ARY Y Location: [place] [address]-1 ADDENDUM by Princess Collazo on 02/19/18 at 1819 Code Visit This patient was seen in conjunction with Javid JAMISON. I have independently interviewed and examined the patient and reviewed pertinent historical, laboratory and other data. Please refer to the discharge summary note note for details of this patient's presentation, findings and recommendations. I have reviewed Javid's note and concur fully with documented findings. In brief, patient is a 57YO male admitted with pain. Serial troponins were all less than 0.02. Telemetry showed no significant ectopy or dysrhythmia. A stress test was done and showed normal uptake of tracer noted in all areas of the myocardium. There were no areas of reversibility noted to suggest ischemia. There was no previous infarct noted. The gated nuclear ejection fraction was 69%. Smoking cessation counseling was given in the hospital and also dietary instruction. He will continue with losartan, aspirin and metoprolol at discharge. Physical examination: Alert and oriented 3, no apparent distress. Lungs-clear to auscultation. Heart-regular rate and rhythm with no murmur, gallop or rub. No peripheral edema and no calf tenderness. Assessment: 1. Noncardiac chest pain and a 57-year-old male with multiple risk factors for coronary artery disease including tobacco abuse, hypertension, obesity I have discussed my assessment with Javid and orders have been written. OBSV E AND M: 15088 Observation care discharge 02/19/181818 <Electronically signed by Jade Collazo DO> Date Jade Collazo DO cc: SHAHEEN Thao; Princess Collazo; Aime Mclean MD * Signed Discharge Date and Diagnosis Date of Admission: 02/10/18 Date of Discharge: 02/11/18 - Primary Discharge Diagnosis Chest pain - musculoskeletal HTN Dehydration Nicotine abuse - Secondary Discharge Diagnosis Chronic Problems HTN (hypertension) (Chronic) Nicotine abuse (Chronic) Hospital Course and Treatment Imaging Results: 02/11/18 05:55 Nuclear Stress Test - Treadmil [NM] AM (NON MEDS) Operations: None Procedures: Stress test Summary of Care Provided: Physical exam on day of discharge: General: Resting comfortably NAD Psych: A/Ox3 normal affect HEENT: PEARRLA AT NC Neck: Supple NT CV: RRR no m/t/r/g/h Resp: CTA Abd: [id number] Soft NT no guarding or rigidity Ext: DP2+= no edema Skin: W/D normal turgor Lymph/Heme: No active bleeding or adenopathy Neuro: CN2-12 intact Hospital course: The patient is a 57 year old M with a hx of nicotine abuse, HTN, with at risk drinking behavior, who presented to the ER with chief complaint of severe midsternal chest pain described as pressure radiating into the back and BL axilla, worse with exertion, better at rest, with associated SOB. On arrival to the ED he was given nitro with significant relief. He had a negative EKG and negative troponin, negative chest xray. BMP showed mild dehydration. He was admitted for CP rule out as he had many risk factors including the nature of his symptoms, age, sex, family history, HTN that was significantly elevated in the ER, long smoking hx, and heavy drinking. He was admitted and maintained on the security investigator, troponins repeated, lipid panel taken, repeat EKG, and stress test in the AM. The workup was negative. LDL was 92. Glucose was somewhat elevated so A1C was checked which was borderline prediabetes at 5.7. His HCTZ was discontinued as he was dehydrated, and as his blood pressure was poorly controlled, his metoprolol was increased. We discussed a low sodium and low carb diet, and the importance of nicotine cessation. He was discharged home in stable condition and will follow up with his PCP in 1-2 weeks. This patient was seen by Javid Thao PA-C under the supervision of Doctor Vale. [] Discharge Diet: Low fat/ Low Cholesterol, 1800 Calorie Control Diet, 2000 mg Sodium Diet Discharge Activity: Return to Normal Activity Home Medications: Medications to take at Discharge Losartan Potassium [Cozaar] 50 mg PO DAILY #30 tablet 05/09/16 Aspirin E.C. [Ecotrin] 81 mg PO DAILY@0800 tablet 02/11/18 Metoprolol Succinate [Toprol Xl] 50 mg PO DAILY #30 tab.er.24h 02/11/18 Following Prescrptions Were Given to Patient: Metoprolol Succinate [Toprol Xl] 50 mg PO DAILY #30 tab.er.24h Primary Care Physician: Alexy Mclean MD [Primary Care Provider] - Please follow up with your Primary Care Physician in: 1-2 weeks Please Follow Up With: Alexy Mclean MD When: 1-2 weeks Disposition: Home Minutes spent on discharge:: 35 Patient Condition:: Stable Medical Necessity - Tobacco Use Smoking Status: Current every day smoker Tobacco Use: Cigarettes Meaningful Use Info Meaningful Use Diagnoses (Choose all that apply): None applicable 02/11/18 1356 <Electronically signed by Javid Thao PA> Date Javid JAMISON 02/19/18 1814<Electronically signed by Jade Collazo DO> Cosigner Signature (if applicable): Date Jade Collazo DO CC: SHAHEEN Thao; Princess Collazo; Aime Mclean MD Signed HISTORY AND PHYSICAL Observed: 02/19/2018 Status: F Source: [place] EXAM 6:14 PM [facility] REPOSITORY [facility] Medical Records Department [address] [place] [address] History and Physical 02/10/18 1411 MR#: [id number] Acct: [id number] Name: GIANFRANCO GUADARRAMA Rep #: [id number] : 1960 57 From: Javid JAMISON PCP: Aime Mclean MD Status: DIS ARY Y Location: [place] [address] Problem List (1) Chest pain Status: Acute (2) HTN (hypertension) Status: Chronic (3) Nicotine abuse Status: Chronic History of Present Illness Date of Admission: 02/10/18 Chief Complaint: chest pain The patient is a 57 year old M with a hx of HTN, nicotine abuse, who presents to the ER with chest pain that began yesterday afternoon. He described it as a sudden onset of 5/10 midsternal pressure and tightness. It was constant until he laid down in the evening which gave him some relief. 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 He had radiation into his back and BL axillae. He denies nausea/vomiting/diaphoresis/dizziness/LH/palpitations. His blood pressure was significantly elevated in the ER. In the ER he was given Nitro with good relief of his CP. He has none currently during the interview. He has a hx of HTN and notes recently he was supposed to have tubes placed in his left ear but it was cancelled as his BP was out of control. He smokes, and has done so since he was a teenager. He also drinks, reporting 4-5 beers plus a couple shots of liquor maybe not every night. He currently has a headache that began after receiving nitro. He does not desire a nicotine patch. [] Past Medical History Past Medical History (Chronic Problems): Chronic Problems HTN (hypertension) (Chronic) Nicotine abuse (Chronic) Allergies No Known Allergies Allergy (Verified 05/09/16 09:47) Home Medications: Ambulatory Orders Medication Instructions Recorded Surgical History: - - ear tubes, jaw repair Psychiatric History: No pertinent psych hx Lives: With Family Smoking Status: Current every day smoker Tobacco Use: Cigarettes Alcohol: Heavy Drugs: None - *Family History Maternal History Items: Heart Disease Paternal History Items: Heart Disease Review of Systems Constitutional: Denies: Chills, Fever, Weakness, Weight Change, Fatigue HEENT: Reports: Hard of Hearing, Head Aches. Denies: Sinus Congestion, Sinus Drainage Cardiovascular: Reports: Chest Pain, Chest Pressure, Chest Tightness. Denies: Edema, Heaviness, Light Headedness, Palpitations, Syncope Respiratory: Reports: Shortness of Breath, Shortness of breath upon exertion. Denies: Cough, Shortness of breath at rest, Sputum production, Wheezing Gastrointestinal: Denies: Abdominal Pain, Nausea, Vomiting Genitourinary: Denies: Dysuria Musculoskeletal: Denies: Joint Pain, Joint Tenderness Skin: Denies: Rash, Wounds Neurological: Denies: Numbness, Tingling, Focal weakness Psychiatric: Denies: Anxiety, Depression, Homicidal Ideations, Suicidal Ideations Hematologic/ Lymphatic: Denies: Easy Bruising, Easy Bleeding VTE Information - Inpt Only VTE Present on Admission: No VTE Mechan Device Prophylaxis: SCD's VTE Pharm Prophylaxis ordered?: Yes Patient Problems: Active and Suspected Problems Chest pain (Acute) - Physical Exam General: Alert, Oriented x3, Cooperative HEENT: Atraumatic, PERRLA, EOMI, Normocephalic Neck: Supple, No JVD, Negative Carotid Bruits Lungs: Clear to auscultation, Normal air movement Cardiovascular: Regular rate, No murmurs Abdomen: Bowel Sounds Present, Soft, Non Tender Extremities: No edema, Capillary Refill Less than 3 Seconds Skin: No rashes, No breakdown Musculoskeletal: No Tenderness to Palpation of Joints or Extremities Neurological: Cranial nerves II-XII grossly intact Psych/Mental Status: Normal Affect, Appropriate, Alert and oriented to time, place, person, mood and affect Vital Signs Temp Pulse Resp BP Pulse Ox 97.8 F 83 18 129/86 H 94 02/10/18 13:00 02/10/18 13:31 02/10/18 13:00 02/10/18 13:00 02/10/18 13:00 Oxygen Delivery Method Room Air Weight: 85.7 kg Body Mass Index (BMI) 30.4 Laboratory Tests Past 24 Hrs Troponin I Pending Assessment/Plan Active and Suspected Problems Chest pain (Acute) 1. Chest pain - risk factors include symptomatology, response to nitro, age, male, smoker, HTN, + family hx, high alcohol consumption, borderline diabetes. Aspirin, continue losartan, toprol, adjust as needed, cycle enzymes, prn nitro, lipid profile, repeat EKG in AM, stress test in AM. A1C is 5.7 - borderline. We discussed the need for dietary modification and the risk of diabetes in heart disease. If he has underlying coronary disease we should consider starting metformin low dose. -EKG negative -Trop neg -CXR neg -D Dimer neg 2. HTN - severe in ER. Trend and adjust as needed. 3. Nicotine abuse - encouraged cessation - declines patch. 4. At risk alcohol consumption - 4-5 beers/night + 2 shots hard liquor. monitor for withdrawal and start CIWA protocol if indicated. DVT ppx: lovenox DC planning: pending stress results This patient was seen by Javid Thao PA-C under the supervision of Doctor Vale. 02/10/18 4816 <Electronically signed by Javid Master PA> Date Javid JAMISON 02/19/18 1814<Electronically signed by Jade Collazo DO> Cosigner Signature: Date (if applicable) Jade Collazo DO CC: SHAHEEN Thao; Princess Collazo; Aime Mclean MD Signed 12 LEAD ELECTROCARDIOGRAM Observed: 02/14/2018 Status: F Source: [place] 2:06 PM [facility] REPOSITORY [facility] Cardiovascular Services [address] [place] [address] 12 Lead EKG 02/11/18 0528 MR#: [id number] Acct: [id number] Name: GIANFRANCO GUADARRAMA Rep #: [id number] : 1960 57 From: Juan Jose Guadarrama MD Attending Dr: Princess Collazo Status: DIS ARY Ordering Dr: Jade Collazo DO Date: 02/11/18 Location: [facility] Sex: Jade C Admitted: 02/10/18 Test Reason : Blood Pressure : / mmHG Vent. Rate : 066 BPM Atrial Rate : 066 BPM P-R Int : 166 ms QRS Dur : 084 ms QT Int : 392 ms P-R-T Axes : 031 -17 006 degrees QTc Int : 410 ms Normal sinus rhythm Normal ECG When compared with ECG of 10-FEB-2018 09:44, MANUAL COMPARISON REQUIRED, DATA IS UNCONFIRMED Confirmed by JUAN JOSE GUADARRAMA MD ([id number]), technical editor ANABEL BOWMAN ([id number]) on 02/14/2018 2:05:56 PM Referred By: Confirmed By:JUAN JOSE GUADARRAMA MD 02/14/18 1405 Date Juan Jose Guadarrama MD CC: Princess Collazo; Aime Mclean MD Signed 12 LEAD ELECTROCARDIOGRAM Observed: 02/14/2018 Status: F Source: [place] 1:58 PM [facility] REPOSITORY [facility] Cardiovascular Services [address] [place] [address] 12 Lead EKG 02/10/18 0944 MR#: [id number] Acct: [id number] Name: RASHMI GUADARRAMAK [place] Rep #: [id number] : 1960 57 From: Juan Jose Guadarrama MD Attending Dr: Princess Collazo Status: DIS ARY Ordering Dr: Belle Mccoy DO Date: 02/10/18 Location: [facility] Sex: M C Admitted: 02/10/18 Test Reason : CP Blood Pressure : / mmHG Vent. Rate : 086 BPM Atrial Rate : 086 BPM P-R Int : 144 ms QRS Dur : 080 ms QT Int : 352 ms P-R-T Axes : 030 -25 030 degrees QTc Int : 421 ms Normal sinus rhythm Normal ECG Confirmed by JUAN JOSE GUADARRAMA MD ([id number]), technical editor ANABEL BOWMAN ([id number]) on 02/14/2018 1:58:05 PM Referred By: IZABELLA/ROSAMARIA Confirmed By:JUAN JOSE GUADARRAMA MD 02/14/18 1358 Date Juan Jose Guadarrama MD CC: Princess Collazo; Aime Mclean MD; Belle Mccoy DO Signed DISCHARGE INSTRUCTION Observed: 02/11/2018 Status: F Source: [place] 11:31 AM [facility] REPOSITORY [facility] Medical Records Department [address] [place] [address] Instructions for Home/Discharge Instructions 02/11/18 1129 MR#: [id number] Acct: [id number] Name: RASHMI GUADARRAMAK [place] Rep #: [id number] : 1960 57 From: Javid JAMISON PCP: Aime Mclean MD Status: ADM ARY - Discharge Diagnoses Current Active Problems: Current Active and Chronic Problems Chest pain (Acute) HTN (hypertension) (Chronic) Nicotine abuse (Chronic) You will use the following diet at home:: Calorie/Carbohydrate Controlled (specify 1200, 1400, etc) - 1800 ela / day, Cardiac - 2 g sodium per day, low cholesterol Your food should be the consistency of: Regular Your liquids should be the consistency of: Regular/Thin Discharge Activity: Return to Normal Activity Allergies/Adverse Reactions: Allergies No Known Allergies Allergy (Verified 05/09/16 09:47) Medications to take at Discharge Losartan Potassium [Cozaar] 50 mg PO DAILY #30 tablet 05/09/16 Aspirin E.C. [Ecotrin] 81 mg PO DAILY@0800 tablet 02/11/18 Metoprolol Succinate [Toprol Xl] 50 mg PO DAILY #30 tab.er.24h 02/11/18 The following prescriptions were given: Metoprolol Succinate [Toprol Xl] 50 mg PO DAILY #30 tab.er.24h Primary Care Physician: Alexy Mclean MD [Primary Care Provider] - Please follow up with your Primary Care Physician in: 1-2 weeks Proposed Discharge Date: 02/11/18 02/11/18 1131 <Electronically signed by Javid JAMISON> Date Javid JAMISON CC: Aime Mclean MD STRESS REPORT Observed: 02/11/2018 Status: F Source: [place] 9:32 AM [facility] REPOSITORY [facility] Cardiovascular Services [address] [place] [address] MR#: [id number] Acct: [id number] Name: GIANFRANCO GUADARRAMA Rep #: [id number] : 1960 57 From: Juan Jose Guadarrama MD Primary Care: Aime Mclean MD Status: ADM ARY Ordering Dr: Javier: Jade C Stress Test Report Exercise myocardial perfusion stress test. 57-year-old man with a history of chest pain. Stress protocol: Resting EKG demonstrates normal sinus rhythm with a rate of 75 bpm normal intervals and noted resting blood pressure is 182 of 104 mmHg. The patient exercised according to the regular Francisco protocol for total duration of 7 minutes completing 1 minute into stage III of the Francisco protocol. The maximum heart rate attained was 150 bpm which was 92% of maximum predicted heart rate the maximum workload attained was 8.5 metabolic equivalents. At rest there were no ST or T-wave changes noted suggest ischemia peak exercise no ST or T-wave changes were noted suggest ischemia. No clinical angina was noted and the test was terminated due to leg fatigue. The resting blood pressure is 180 204 with a peak blood pressure 190/100 mmHg. Resting hypertension is noted. Myocardial perfusion protocol: 11.9 mCi of technetium 99m sestamibi was injected at rest. The patient exercised according to regular Francisco protocol for total duration of 7 minutes. At peak exercise 33.6 mCi of technetium 99m sestamibi was injected stress images were obtained stress and rest images were reconstructed and compared in the short axis vertical long and horizontal long axis. Gated images were also obtained. Perfusion SPECT analysis. Review of the stress images demonstrated normal uptake of tracer noted in all areas of the myocardium. The resting images similarly demonstrate normal uptake of tracer noted in all areas of the myocardium. No areas of reversibility are noted suggest ischemia. No previous infarct is noted. Gated SPECT analysis: The gated ejection fraction is 69%. Conclusion: Normal exercise myocardial perfusion stress test at a moderate to high workload. No clinical angina noted. Preserved ejection fraction. 02/11/18931 <Electronically signed by Juan Jose Guadarrama MD> Date Juan Jose Guadarrama MD CC: Princess Collazo; Aime Mclean MD Date Dictated: 02/11/18926 Date Transcribed: 02/11/18926 Real Estate Closing Coordinator: CO Signed CBC W/DIFF, AUTOMATED Collected: 02/11/2018 Status: F Source: [place] 5:00 AM [facility] REPOSITORY TYPE CODE TESTS RESULT OUT OF RANGE REFERENCE UNITS LAB L100.1000 4.4-11.0 K/mm3 Normal WBC 4.5 LAB L100.1200 4.6-6.2 M/mm3 Low RBC 4.34 LAB L100.1300 13.0-16.5 g/dl Normal HGB 14.6 LAB L100.1400 40-54 % Normal HCT 41.0 LAB L100.1500 80-94 fL High MCV 94.5 LAB L100.1600 27.0-32.0 pg High MCH 33.6 LAB L100.1700 32-36 g/gl Normal MCHC 35.6 LAB L100.1810 11.6-14.6 % Normal RDW CV 12.7 LAB L100.1820 35.1-43.9 fl Normal RDW SD 42.7 LAB L100.1900 150-450 K/mm3 Normal PLT 180 LAB L100.2000 6.2-12.0 fl Normal MPV 10.6 LAB L100.2100 47-70 % Normal NEUT% 56.6 LAB L100.2200 19-41 % Normal LY% 30.4 LAB L100.2300 0-10 % Normal MONO% 8.6 LAB L100.2400 0-5 % Normal EO% 3.5 LAB L100.2500 0-1 % Normal BASO% 0.7 LAB L100.2550 0.0-0.9 % Normal IM GRAN % 0.200 Result Comment: IG% - Immature Granulocytes (promyelocytes, myelocytes and metamyelocytes) > 1% indicates that a LEFT SHIFT is Present. LAB L100.2620 2.0-7.7 X10 3/uL Normal Absolute Neut 2.6 LAB L100.2720 0.83-4.51 X10 3/ul Normal Absolute Lymph 1.37 Performed By: #### L100.0100 #### [facility] [address] [place], [address] BASIC METABOLIC Collected: 02/11/2018 Status: F Source: [place] PROFILE ([facility]) 5:00 AM [facility] REPOSITORY TYPE CODE TESTS RESULT OUT OF RANGE REFERENCE UNITS LAB L501.0100 74-106 mg/dL Normal GLU 102 Result Comment: Fasting Glucose result from 100 to 125 mg/dL suggests IMPAIRED HOMEOSTASIS per A.D.A. criteria. Please note revised GLUCOSE reference range effective 2017. LAB L501.1000 7-18 mg/dL High BUN 22 LAB L501.1100 0.70-1.30 mg/dL Normal CREAT,SERUM 0.72 Result Comment: The validity of the calculated GFR AND GFRAA in patients over 70 years has not been determined. Clinical correlation is essential. LAB L501.1110 >60 mL/min Normal EST GFR 118 Result Comment: Non- GFR Calc LAB L501.1115 >60 mL/min Normal EST GFR - AA 143 Result Comment: GFR Calc LAB L501.1255 ml/min Normal Estimated CRCL 100.92 LAB L501.1300 10-20 RATIO High BUN/CRE 30.3 LAB L501.2200 8.5-10 mg/dL Low .1 CA 8.4 LAB L501.5300 136-14 mmol/L 5 NA Normal 141 LAB L501.5600 3.5-5. mmol/L 1 K Normal 3.6 LAB L501.5900 98-107 mmol/L CL Normal 106 LAB L501.6100 21.0-3 mmol/L 2.0 CO2 Normal 27.0 LAB L501.6200 5-15 GAP Normal 8 Performed By: #### L500.2500, L500.4100 #### [facility] [address] [place], [place], [id number] LIPID PROFILE Collected: 02/11/2018 Status: F Source: [place] 5:00 AM [facility] REPOSITORY TYPE CODE TESTS RESULT OUT OF RANGE REFERENCE UNITS LAB L501.4900 200 mg/dL Normal CHOL 168 Result Comment: <200 mg/dL Desirable 200-240 mg/dL Borderline >240 mg/dL High Risk LAB L501.5000 mg/dL High TRIG 205 Result Comment: The drugs N-Acetylcysteine and Metamizole may falsely depress this assay. Serum Triglycerides Reference Interval Normal <150 mg/dL Borderline high 150 - 199 mg/dL High 200 - 499 mg/dL Very High > or = 500 mg/dL LAB L501.6400 mg/dL Low HDL 35 Result Comment: The drugs N-Acetylcysteine and Metamizole may falsely depress this assay. Reference Range HDL <40 mg/dL Low HDL Cholesterol HDL >or= 60 mg/dL High HDL Cholesterol LAB L501.6500 0-130 mg/dL Normal LDL 92 LAB L501.6600 5-40 mg/dL High VLDL 41 Performed By: #### L500.2500, L500.4100 #### [facility] [address] [place], [place], [id number] PROTHROMBIN TIME W/INR Collected: 02/11/2018 Status: F Source: [place] 5:00 AM [facility] REPOSITORY TYPE CODE TESTS RESULT OUT OF RANGE REFERENCE UNITS LAB L300.4150 11.7-14.9 SECONDS Normal PROTIME 13.4 LAB L300.4200 Normal INR 1.0 Performed By: #### L300.3900, L300.4310 #### [facility] [address] [facility] [id number] PARTIAL THROMBOPLAST Collected: 02/11/2018 Status: F Source: [place] TIME 5:00 AM [facility] REPOSITORY TYPE CODE TESTS RESULT OUT OF RANGE REFERENCE UNITS LAB L300.4310 24.1-36.2 Seconds Normal PTT 28.9 Performed By: #### L300.3900, L300.4310 #### [facility] [address] [facility] [id number] TROPONIN-I Collected: 02/11/2018 Status: F Source: [place] 12:40 AM [facility] REPOSITORY Order Comment: 'TROP' Serial specimen #1, #2, #3, or #4: 4 TYPE CODE TESTS RESULT OUT OF RANGE REFERENCE UNITS LAB L501.4010 <0.06 ng/mL Normal < 0.02 TROPONIN-I Result Comment: TROPONIN-I EXPECTED VALUES <0.05 NEGATIVE 0.06 - 0.59 AT RISK OF MD > OR = 0.60 SUGGEST MD Performed By: #### L501.4010 #### [facility] [address] [facility] [address] TROPONIN-I Collected: 02/10/2018 Status: F Source: [place] 5:00 PM [facility] REPOSITORY Order Comment: 'TROP' Serial specimen #1, #2, #3, or #4: 3 TYPE CODE TESTS RESULT OUT OF RANGE REFERENCE UNITS LAB L501.4010 <0.06 ng/mL Normal < 0.02 TROPONIN-I Result Comment: TROPONIN-I EXPECTED VALUES <0.05 NEGATIVE 0.06 - 0.59 AT RISK OF MD > OR = 0.60 SUGGEST MD Performed By: #### L501.4010 #### [facility] [address] [place] [id number] EMERGENCY DEPARTMENT Observed: 02/10/2018 Status: F Source: [place] SUMMARY 11:11 AM [facility] REPOSITORY [facility] Medical Records Department [address] [place] [address] Emergency Department Summary 02/10/18 1109 MR#: [id number] Acct: [id number] Name: GIANFRANCO GUADARRAAM Rep #: [id number] : 1960 57 From: Belle Mccoy DO PCP: Aime Mclean MD Status: REG ER - ER Visit Summary Date of Service: 02/10/18 Chief Complaint: [Chest pain] History of Present Illness: The patient is a 57 M [presents the emergency department with chest pain that started yesterday. Patient states the pains been relatively continuous and describes a dull tightness and pressure like somebody is pushing on his chest. Patient describes radiation into both armpits. Patient currently rates his pain a 5 out of 10. Patient has some mild dyspnea. Patient denies any nausea or vomiting or diaphoresis. Patient denies recent travel or surgery. Patient is never had discomfort like this before. Patient has history of hypertension. There is no family history of heart disease. Patient is a smoker.] Physical Examination: [HEENT-PERRLA, EOMI. Cranial nerves II through XII grossly intact. TMs clear. Mucous membranes moist. No adenopathy. Cardiovascular-regular rate and rhythm without murmur or ectopy Lungs-clear to auscultation, chest wall stable without crepitus or subcu emphysema Abdomen-normoactive bowel sounds, soft, nontender, no rebound or rigidity, no peritoneal signs. Extremities-intact 4, normal range of motion, normal pulses, atraumatic] Test Results: [EKG obtained on arrival showed a sinus rhythm with a ventricular rate of 86 bpm with no acute ST segment changes. CBC with differential was normal. Chemistries were normal. Troponin was less than 0.02. D-dimer was normal. Chest x- ray showed nothing acute.] Emergency Department Course and Treatment: [Patient took aspirin at home yesterday to full doses. Patient received 2 sublingual nitro that completely resolved his pain and he had an inch of Nitropaste placed to the anterior chest wall.] Treatment Plan: [Admit for further workup and evaluation] Disposition: [Admit] Impression: [Chest pain-rule out acute coronary syndrome] This note was generated with [employer] dictation software. It may contain incorrect words, spelling, and punctuation that were not noted in review of the chart prior to signing ED Disposition - Plan for ED Patient: Chief Complaint: Chest Pain Referrals: Alexy Mclean MD [Primary Care Provider] - What to do if you have Problems For any increased pain, shortness of breath, bleeding, nausea or vomiting, chest pain, or any unexpected problems, contact your Primary Care Provider. Call [facility] ([phone]) or report to the closest Emergency Room. Call 911 if necessary. 02/10/18 1111 <Electronically signed by Belle Mccoy DO> Date Belle Mccoy DO Cosigner Signature (If Indicated): Date CC: Aime Mclean MD CBC W/DIFF, AUTOMATED Collected: 02/10/2018 Status: F Source: [place] 9:55 AM [facility] REPOSITORY TYPE CODE TESTS RESULT OUT OF RANGE REFERENCE UNITS LAB L100.1000 4.4-11.0 K/mm3 Normal WBC 4.6 LAB L100.1200 4.6-6.2 M/mm3 Low RBC 4.52 LAB L100.1300 13.0-16.5 g/dl Normal HGB 15.1 LAB L100.1400 40-54 % Normal HCT 43.3 LAB L100.1500 80-94 fL High MCV 95.8 LAB L100.1600 27.0-32.0 pg High MCH 33.4 LAB L100.1700 32-36 g/gl Normal MCHC 34.9 LAB L100.1810 11.6-14.6 % Normal RDW CV 13.3 LAB L100.1820 35.1-43.9 fl High RDW SD 46.2 LAB L100.1900 150-450 K/mm3 Normal PLT 178 LAB L100.2000 6.2-12.0 fl Normal MPV 10.4 LAB L100.2100 47-70 % Normal NEUT% 62.5 LAB L100.2200 19-41 % Normal LY% 27.6 LAB L100.2300 0-10 % Normal MONO% 7.3 LAB L100.2400 0-5 % Normal EO% 2.2 LAB L100.2500 0-1 % Normal BASO% 0.4 LAB L100.2550 0.0-0.9 % Normal IM GRAN % 0.000 Result Comment: IG% - Immature Granulocytes (promyelocytes, myelocytes and metamyelocytes) > 1% indicates that a LEFT SHIFT is Present. LAB L100.2620 2.0-7.7 X10 3/uL Normal Absolute Neut 2.9 LAB L100.2720 0.83-4.51 X10 3/ul Normal Absolute Lymph 1.28 Performed By: #### L100.0100 #### [facility] [address] [facility]. [place], [place], [address] D-DIMER QUANTITATIVE Collected: 02/10/2018 Status: F Source: [place] (DVT/PE) 9:55 AM [facility] REPOSITORY TYPE CODE TESTS RESULT OUT OF RANGE REFERENCE UNITS LAB L300.8000 0.27-0.49 FEU/ug/m Normal D-DIMER 0.38 QUANT Result Comment: NORMAL D-Dimer level (<0.50) indicates no DVT or PE. Performed By: #### L300.8000 #### [facility] [address] [facility] [place], [place], [address] BASIC METABOLIC Collected: 02/10/2018 Status: F Source: [place] PROFILE (BMP) 9:55 AM [facility] REPOSITORY Order Comment: 'TROP' Serial specimen #1, #2, #3, or #4: 1 TYPE CODE TESTS RESULT OUT OF RANGE REFERENCE UNITS LAB L501.0100 74-106 mg/dL High GLU 108 Result Comment: Fasting Glucose result from 100 to 125 mg/dL suggests IMPAIRED HOMEOSTASIS per A.D.A. criteria. Please note revised GLUCOSE reference range effective 2017. LAB L501.1000 7-18 mg/dL High BUN 25 LAB L501.1100 0.70-1.30 mg/dL Normal CREAT,SERUM 0.82 Result Comment: The validity of the calculated GFR AND GFRAA in patients over 70 years has not been determined. Clinical correlation is essential. LAB L501.1110 >60 mL/min Normal EST GFR 102 Result Comment: Non- GFR Calc LAB L501.1115 >60 mL/min Normal EST GFR - AA 123 Result Comment: GFR Calc LAB L501.1255 ml/min Normal Estimated CRCL 88.61 LAB L501.1300 10-20 RATIO High BUN/CRE 30.3 LAB L501.2200 8.5-10 mg/dL Normal .1 CA 9.0 LAB L501.5300 136-14 mmol/L Normal 5 NA 142 LAB L501.5600 3.5-5. mmol/L Normal 1 K 3.6 LAB L501.5900 98-107 mmol/L Normal CL 106 LAB L501.6100 21.0-3 mmol/L Normal 2.0 CO2 29.0 LAB L501.6200 5-15 Normal GAP 7 Performed By: #### L500.2500, L501.4010 #### [facility] [address] [facility] [place], [address] TROPONIN-I Collected: 02/10/2018 Status: F Source: [place] 9:55 AM [facility] REPOSITORY Order Comment: 'TROP' Serial specimen #1, #2, #3, or #4: 1 TYPE CODE TESTS RESULT OUT OF RANGE REFERENCE UNITS LAB L501.4010 <0.06 ng/mL Normal < 0.02 TROPONIN-I Result Comment: TROPONIN-I EXPECTED VALUES <0.05 NEGATIVE 0.06 - 0.59 AT RISK OF MD > OR = 0.60 SUGGEST MD Performed By: #### L500.2500, L501.4010 #### [facility] [address] [place], [address] LIVER PROFILE Collected: 02/10/2018 Status: F Source: [place] 9:55 AM [facility] REPOSITORY TYPE CODE TESTS RESULT OUT OF RANGE REFERENCE UNITS LAB L501.1500 6.4-8.2 g/dL Normal T PROT 7.2 LAB L501.1800 3.2-5.0 g/dL Normal ALB 3.5 LAB L501.1950 2.2-4.2 g/dL Normal GLOB 3.7 LAB L501.4100 15-37 U/L High AST 40 LAB L501.4305 45-117 U/L High ALK P 122 LAB L501.4405 16-61 U/L Normal ALT 56 Result Comment: Please note revised ALT reference range effective 2017. LAB L501.4600 0.20-1.00 mg/dL Normal T BILI 0.80 LAB L501.4700 0.00-0.30 mg/dL Normal D BILI 0.23 Performed By: #### L500.3400, L501.5200 #### [facility] [address] [place], [address] MAGNESIUM Collected: 02/10/2018 Status: F Source: [place] 9:55 AM [facility] REPOSITORY TYPE CODE TESTS RESULT OUT OF RANGE REFERENCE UNITS LAB L501.5200 1.6-2.6 mg/dL Normal MG 1.9 Result Comment: Please note revised Magnesium reference range effective 2017. Performed By: #### L500.3400, L501.5200 #### [facility] [address] [place], [address] HEMOGLOBIN A1C Collected: 02/10/2018 Status: F Source: [place] 9:55 AM [facility] REPOSITORY TYPE CODE TESTS RESULT OUT OF RANGE REFERENCE UNITS LAB L501.9985 4.2-6.3 % Normal HGB A1C 5.7 Performed By: #### L501.9985 #### [facility] [place], [address] CHEST 1 VIEW Observed: 02/10/2018 Status: F Source: [place] (PORTABLE) 9:50 AM [facility] REPOSITORY [facility] Imaging Services [address] [place] [address] Chest 1 View (Portable) MR#: [id number] Acct: [id number] Name: GIANFRANCO GUADARRAMA Rep #: [id number] : 1960 M 57 From: Lawrence Currie MD PCP: Aime Mclean MD Status: REG ER Study: Chest 1 View (Portable) Date of Exam: 02/10/18 Exam# [id number] Ordering Dr: Belle Mccoy DO STUDY: X-RAY CHEST REASON FOR EXAM: Male, 57 years old. Chest pain. TECHNIQUE: Single AP portable view of the chest. COMPARISON: 07/16/2015. FINDINGS: There is mild elevation of the right hemidiaphragm. There are mild hypoventilatory changes in the right lung base. No focal infiltrate is seen. There is no demonstrated pleural abnormality. Normal size heart. Normal mediastinum and pilar. Normal visualized pulmonary arteries. Normal visualized aortic arch and descending thoracic aorta. The thoracic spine is obscured. Normal visualized ribs, clavicles, and shoulders. There is no demonstrated abnormality of the visualized soft tissue structures of the upper abdomen. RAD/Chest 1 View (Portable) IMPRESSION: No active pulmonary disease. Electronically Signed: Lawrence Currie MD at 10:27 EDT Tel , Service support , CC: Aime Mclean MD; Belle Mccoy DO Real Estate Closing Coordinator: Signed COMPREHENSIVE METABOLIC Collected: 12/17/2017 Status: F Source: [place] ZAMBRANO 2:57 PM [facility] REPOSITORY Order Comment: Order Date: 06/11/17 Order Info: [id number] - CMP Order Info: [id number] - LIPID Order Info: [id number] - GGTP TYPE CODE TESTS RESULT OUT OF RANGE REFERENCE UNITS LAB L501.0100 74-106 mg/dL Normal GLU 106 Result Comment: Fasting Glucose result from 100 to 125 mg/dL suggests IMPAIRED HOMEOSTASIS per A.D.A. criteria. Please note revised GLUCOSE reference range effective 2017. LAB L501.1000 7-18 mg/dL High BUN 24 LAB L501.1100 0.70-1.30 mg/dL Normal CREAT,SERUM 0.76 Result Comment: The validity of the calculated GFR AND GFRAA in patients over 70 years has not been determined. Clinical correlation is essential. LAB L501.1110 >60 mL/min Normal EST GFR 111 Result Comment: Non- GFR Calc LAB L501.1115 >60 mL/min Normal EST GFR - AA 135 Result Comment: GFR Calc LAB L501.1300 10-20 RATIO High BUN/CRE 31.5 LAB L501.1500 6.4-8.2 g/dL T Normal PROT 7.1 LAB L501.1800 3.2-5.0 g/dL Normal ALB 3.6 LAB L501.1950 2.2-4.2 g/dL Normal GLOB 3.5 LAB L501.2000 0.9-2.4 RATIO Normal A/G 1.0 LAB L501.2200 8.5-10.1 mg/dL CA Normal 9.2 LAB L501.4100 15-37 U/L Normal AST 32 LAB L501.4305 45-117 U/L Normal ALK P 102 LAB L501.4405 16-61 U/L Normal ALT 48 Result Comment: Please note revised ALT reference range effective 2017. LAB L501.4600 0.20-1.00 mg/dL Normal T BILI 0.40 LAB L501.5300 136-145 mmol/L Normal NA 142 LAB L501.5600 3.5-5.1 mmol/L Normal K 3.6 LAB L501.5900 98-107 mmol/L Normal CL 107 LAB L501.6100 21.0-32.0 mmol/L Normal CO2 25.0 LAB L501.6200 5-15 Normal GAP 10 Performed By: #### L500.4050, L500.4100, L501.5100, L100.0100, L506.1000 #### [facility] [address] [place], [place], [address] LIPID PROFILE Collected: 12/17/2017 Status: F Source: [place] 2:57 PM [facility] REPOSITORY Order Comment: Order Date: 06/11/17 Order Info: [id number] - CMP Order Info: [id number] - LIPID Order Info: 2324-2 - GGTP TYPE CODE TESTS RESULT OUT OF RANGE REFERENCE UNITS LAB L501.4900 200 mg/dL High CHOL 211 Result Comment: <200 mg/dL Desirable 200-240 mg/dL Borderline >240 mg/dL High Risk LAB L501.5000 mg/dL High TRIG 499 Result Comment: The drugs N-Acetylcysteine and Metamizole may falsely depress this assay. TRIGLYCERIDE IS GREATER THAN 400 mg/dL. LDL RESULT IS INVALID AND WILL NOT BE REPORTED. Serum Triglycerides Reference Interval Normal <150 mg/dL Borderline high 150 - 199 mg/dL High 200 - 499 mg/dL Very High > or = 500 mg/dL LAB L501.6400 mg/dL Normal HDL 40 Result Comment: The drugs N-Acetylcysteine and Metamizole may falsely depress this assay. Reference Range HDL <40 mg/dL Low HDL Cholesterol HDL >or= 60 mg/dL High HDL Cholesterol LAB L501.6500 0-130 mg/dL Test Normal not performed LDL LAB L501.6600 5-40 mg/dL Test Normal not performed VLDL Performed By: #### L500.4050, L500.4100, L501.5100, L100.0100, L506.1000 #### [facility] [address] [facility] [place], [place], [id number] GGTP Collected: 12/17/2017 Status: F Source: [place] 2:57 PM [facility] REPOSITORY Order Comment: Order Date: 06/11/17 Order Info: [id number] - CMP Order Info: [id number] - LIPID Order Info: 2324-2 - GGTP TYPE CODE TESTS RESULT OUT OF RANGE REFERENCE UNITS LAB L501.5100 15-85 U/L Normal GGTP 76 Performed By: #### L500.4050, L500.4100, L501.5100, L100.0100, L506.1000 #### [facility] [address] [facility] [place], [place], [address] CBC W/DIFF, AUTOMATED Collected: 12/17/2017 Status: F Source: [place] 2:57 PM [facility] REPOSITORY Order Comment: Order Date: 06/11/17 Order Info: [id number] - CBCD TYPE CODE TESTS RESULT OUT OF RANGE REFERENCE UNITS LAB L100.1000 4.4-11.0 K/mm3 Normal WBC 5.8 LAB L100.1200 4.6-6.2 M/mm3 Normal RBC 4.69 LAB L100.1300 13.0-16.5 g/dl Normal HGB 15.8 LAB L100.1400 40-54 % Normal HCT 44.1 LAB L100.1500 80-94 fL Normal MCV 94.0 LAB L100.1600 27.0-32.0 pg High MCH 33.7 LAB L100.1700 32-36 g/gl Normal MCHC 35.8 LAB L100.1810 11.6-14.6 % Normal RDW CV 12.6 LAB L100.1820 35.1-43.9 fl Normal RDW SD 42.3 LAB L100.1900 150-450 K/mm3 Normal PLT 205 LAB L100.2000 6.2-12.0 fl Normal MPV 11.3 LAB L100.2100 47-70 % Normal NEUT% 62.8 LAB L100.2200 19-41 % Normal LY% 25.0 LAB L100.2300 0-10 % Normal MONO% 9.3 LAB L100.2400 0-5 % Normal EO% 2.2 LAB L100.2500 0-1 % Normal BASO% 0.5 LAB L100.2550 0.0-0.9 % Normal IM GRAN % 0.200 Result Comment: IG% - Immature Granulocytes (promyelocytes, myelocytes and metamyelocytes) > 1% indicates that a LEFT SHIFT is Present. LAB L100.2620 2.0-7.7 X10 3/uL Normal Absolute Neut 3.6 LAB L100.2720 0.83-4.51 X10 3/ul Normal Absolute Lymph 1.45 Performed By: #### L500.4050, L500.4100, L501.5100, L100.0100, L506.1000 #### [facility] [address] [place], [address] VITAMIN D,25 HYDROXY Collected: 12/17/2017 Status: F Source: [place] 2:57 PM [facility] REPOSITORY Order Comment: Order Date: 06/11/17 Order Info: [id number] - VITD25 TYPE CODE TESTS RESULT OUT OF REFERENCE UNITS RANGE LAB L506.1000 19.95-100.01 ng/mL Low Vitamin D 15.3 25-OH Result Comment: Vitamin D 25(OH) Status Range Deficiency <20 ng/mL (50nmol/L) Insuffciency 20 - 30 ng/mL (50 - 75 nmol/L) Sufficiency 30 - 100 ng/mL (75 - 250 nmol/L) Toxicity >100 ng/mL (>250 nmol/L) Performed By: #### L500.4050, L500.4100, L501.5100, L100.0100, L506.1000 #### [facility] [address] [place], [address] ALLERGIES ALLERGIES DATE TYPE / CODE NAME / CODE REACTION SEVERITY SOURCE 05/09/2016 Drug No Known Unknown [facility] Allergy/4160 Allergies/F00 Hospital 60047(SNOMED [id number](RXNOR Repository CT) M) ENCOUNTERS ENCOUNTERS ADMIT/DISCHARGE ACCOUNT ADMITTING ENCOUNTER LOCATION SOURCE NUMBER CLASS 11/25/2018 [id number] Ambulatory [place] [facility] ing:PT Repository 10/14/2018 [id number] Ambulatory [place] [facility] ing:MTRAD Repository 02/11/2018/ [id number] Ambulatory BMSBuilding:W [place] [address] [facility] Repository 02/11/2018/ [id number] Ambulatory BMSBuilding:W [place] [address] [facility] Repository 02/10/2018/ [id number] Sementi, Ambulatory [place] [facility] ing:PCURoom: Repository [id number]: 1 02/10/2018 [id number] S[place]i, Ambulatory BMSBuilding:B [place] [facility] Repository 02/10/2018 [id number] [place], Ambulatory BMSBuilding:B [place] [facility] Repository 12/17/2017 [id number] [place] [address] [place] [address] ing:MFPLAB Repository PAYERS PAYERS ENCOUNTER GUARANTOR PAYER SUBSCRIBER SOURCE 11/25/2018 GIANFRANCO [place] GIANFRANCO K [place] [id number] Insurance:ANTHEMPolic FRONTZDOB: Community [place] y Number: [id number], [place] [id number] Repository [address]Uzn: (330) Date:0371-30-83TV [phone] () [phone], [place] [address]KZ: 11/25/2018 Secondary NOT GIVENUNK [place] Insurance:SELF PAY [facility] Number[facility] Effective Repository Date:2018-10-30 10/14/2018 GIANFRANCO K Primary GIANFRANCO K [place] [id number] Insurance:ANTHEMPolic FRONTZDOB: Community [place] y Number: [id number], [place] [id number] Repository [address]Zcp: (330) Date:0079-53-43FE [phone] () [phone], [place] [address]YI: 10/14/2018 Secondary NOT GIVENUNK [place] Insurance:SELF PAY [facility] Number: Effective Repository Date:2018-10-14 02/11/2018 GIANFRANCO K Primary GIANFRANCO K [place] [id number] Insurance:ANTHEMPolic FRONTZDOB: Community [place] y Number: [id number], [place] [id number] Repository [address]Mpp: Date:9897-17-88KC [phone], [place] -4 () [address]UX: 02/11/2018 Secondary NOT GIVENUNK [place] Insurance:SELF PAY [facility] Number: Effective Repository Date:2018-02-11 02/11/2018 GIANFRANCO K Primary GIANFRANCO K [place] [id number] Insurance:ANTHEMPolic FRONTZDOB: Community [place] y Number: [id number], [place] [id number] Repository [address]Xdo: Date:8594-54-02ZN [phone] 542[address]JRSLSOK, [place] -4 () [address]DG: 02/11/2018 Secondary NOT GIVENUNK [place] Insurance:SELF PAY Community [facility] Number: Effective Repository Date:2018-02-11 02/10/2018 GIANFRANCO [place] Primary GIANFRANCO K [place] [id number] Insurance:ANTHEMPolic FRONTZDOB: Community [place] y Number: [id number], [place] [id number] Repository [address]Tob: Date:8370-60-29WB [phone], [place] -4 () [address]QW: 02/10/2018 Secondary NOT GIVENUNK [place] Insurance:SELF PAY [facility] Number: Effective Repository Date:2018-02-10 02/10/2018 GIANFRANCO [place] Primary GIANFRANCO K [place] [id number] Insurance:ANTHEMPolic FRONTZDOB: Community [place] y Number: [id number], [place] [id number] Repository [address]Qtq: Date:8626-06-29WW [phone] 570004EBHQGAY, [place] -4 () [address]IO: 02/10/2018 Secondary NOT GIVENUNK [place] Insurance:SELF PAY [facility] Number: Effective Repository Date:2018-02-10 02/10/2018 GIANFRANCO [place] Primary GIANFRANCO K [place] [id number] Insurance:ANTHEMPolic FRONTZDOB: Community [place] y Number: [id number], [place] [id number] Repository [address]Ezy: Date:2785-31-32TQ [phone], [place] -4 () [address]DB: 02/10/2018 Secondary NOT GIVENUNK [place] Insurance:SELF PAY [facility] Number: Effective Repository Date:2018-02-10 12/17/2017 T[place] [id number] Primary [place] Insurance:ANTHEMPolic FRONTZDOB: [facility] irene Rodarte y Number: [id number] Hospital [address]Kzb: [id number] Repository [phone] Date:7712-25-85MY [address] ) [id number], [place] [address]RB: 12/17/2017 Secondary NOT GIVENUNK [place] Insurance:SELF PAY [facility] Number: Effective Repository Date:2017-12-17
== END ==
PROVIDERS: Family Provider Family Medicine; PCP Family Medicine; Referring Provider Family Medicine; Visit Provider Family Medicine
DX: M25.512 Pain in left shoulder (principal)
CPT/HCPCS: 72050; 72052; 73030

== ENCOUNTER 2018-12-12 10:30 | Outpatient (RCR) | payer BC, SELFPAY ==
--- NOTE | 2018-11-07 15:54 | HP.PTEVAL_ITS ---
Patient's Visit Information GIANFRANCO GUADARRAMA is a 58 year old M referred to Physical Therapy by Alexy Mclean MD with a diagnosis of CERVICAL DDD. Date of Evaluation: 11/07/18 Physical Therapist: Paulo Wing PT, Cert MDT, OCS - Visit Plan Frequency: 2x /Week Duration: 4 Weeks Plan: ICTX 16#-22# pull,US/CP,CERVICAL POSTURAL EX'S MANUAL THERAPY- CERVICAL TRACTION - Subjective Findings: This 58 y/o male presents with physical therapy with cervical DDD. Patient developed left shoulder pain several year months. Patient symptoms progressively worse. Patient had symptoms in left shoulder 6 years ago. Patient has seen chiropractor for cervical/lumbar. Symptoms worse with at night ,lifting work demands. Symptoms better with rest. Patient denies parathesia/tingling. Patient has dull pain ache. No trauma . No injection. Denies ALLEN ,tinnutis/nausea. Symptoms affect sleep. Patient symptosm affect QOL and job demands. 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 SOCIAL: - Pain Left Shoulder Pain Intensity (Out of 10): 6 Pain Intensity Range: 10 - Objective POSTURE: mild rounded shoulders. NEURO: denies parthesia/tingling,reflexes C5-6-7 2/3,mytomes inact. PALAPTION: unremarkable. AROM SHOULDER : flexion 160,abduction 160 degrees,ER 90,IR 85. MMT: RTC 5/5,DELTOID ,4/5. CERVICAL ROM: flexion min loss,lateral/flexion mod loss pain to left,extension mod loss - Special Tests C/S Radiculapathy - Left Upper limb tension test: Negative C/S Radiculapathy - Right Upper limb tension test: Negative C/S Radiculapathy - Left Spurlings: Negative C/S Radiculapathy - Right Spurlings: Positive C/S Radiculapathy - Left Cervical distraction: Negative C/S Radiculapathy - Right Cervical distraction: Negative Sharp Glenn: Negative Vertebral Artery Test: Negative Alar Ligament Test: Negative Cervical Sitting: Protrusion - Mechanical Response: No effect Cervical Sitting: Protrusion - Symptoms During Testing: No effect Cervical Sitting: Protrusion - Symptoms After Testing: No effect Cervical Sitting: Retraction - Mechanical Response: No effect Cervical Sitting: Retraction - Symptoms During Testing: Increases Cervical Sitting: Retraction - Symptoms After Testing: No worse Cervical Sitting: Retraction-Extension - Mechanical Response: No effect Cerv Sitting: Retraction-Extension - Symptoms During Testing: Increases Cerv Sitting: Retraction-Extension - Symptoms After Testing: No worse Cervical Sitting: Sidebend Right - Mechanical Response: No effect Cervical Sitting: Sidebend Right - Symptoms During Testing: No effect Cervical Sitting: Sidebend Right - Symptoms After Testing: No effect Cervical Sitting: Sidebend Left - Mechanical Response: No effect Cervical Sitting: Sidebend Left - Symptoms During Testing: Increases Cervical Sitting: Sidebend Left - Symptoms After Testing: No worse Cervical Sitting: Rotation Right - Mechanical Response: No effect Cervical Sitting: Rotation Right - Symptoms During Testing: No effect Cervical Sitting: Rotation Right - Symptoms After Testing: No effect Cervical Sitting: Rotation Left - Mechanical Response: No effect Cervical Sitting: Rotation Left - Symptoms During Testing: Increases Cervical Sitting: Rotation Left - Symptoms After Testing: No worse R Shoulder Supine Impingement Test - RC Tear: Negative R Shoulder Drop Sign - IS Test: Negative R Shoulder Empty Can - SS: Negative R Shoulder Belly Press - SupScap: Negative R Shoulder Neer - Impingement: Negative R Shoulder Koroma Rafa - Impingement: Negative - Goals Goal 1:: Patient to be Independant with HEP. Goal Time Frame: 4-6 Weeks Goal 2:: Patient to improve posture for ADL'S. Goal Time Frame: 4-6 Weeks Goal 3:: Decrease cervical radiculopathy with shoulder symptoms by 50% or greater to improve function. Goal Time Frame: 4-6 Weeks Goal 4:: Patient to improve cervical ROM for function of recovery Goal Time Frame: 4-6 Weeks Goal 5:: Patient to improve cervial ELIER score by 5 points or greater to improve QOL. Goal Time Frame: 4-6 Weeks - Rehabilitation Potential Physical Therapy Diagnosis: This patient has cervical radiculopathy with symptoms to left shoulder worse with movement,impairs ADLS ,job demands and difficulty with sleeping Rehabilitation Potential: Good - Anticipated Interventions Patient/Client Instruction: Educate patient on: Condition, Plan of Care For the Purpose of:: To decrease pain, To increase ROM, To improve muscle performance and motor function, To improve ability to perform ADL's, To increase tolerance to activity/condition/position, To improve ability of physical actions for home/community/work/leisure, To improve health of tissue, To decrease soft tissue restriction, To increase flexibility/ROM, To reduce risk of recurrence, To improve ability to perform tasks related to life management Therapeutic Exercise to Include: Strength training, Postural training, Flexibilty training, Active ROM, Win Exercises For the Purpose of:: To decrease pain, To increase ROM, To improve muscle perf ormance and motor function, To improve ability to perform ADL's, To improve ability of physical actions for home/community/work/leisure, To improve health of tissue, To decrease soft tissue restriction, To increase flexibility/ROM, To improve ability to perform tasks related to life management Manual Therapy Techniques to Include: Mobilization Comment: CERVICAL TRACTION For the Purpose of:: To decrease pain, To increase ROM, To improve muscle performance and motor function, To increase tolerance to activity/condition/po sition, To improve health of tissue, To decrease soft tissue restriction TENS: Yes IF ES: Yes Cryotherapy (ice pack, ice massage): Yes Thermo therapy (hot pack): Yes Ultrasound (thermal/non thermal): Yes Intermittent cervical traction: Yes - 16#-22# For the Purpose of:: To decrease pain, To increase ROM, To improve nutrient delivery to tissue, To increase oxygenation perfusion, To improve health of tissue, To decrease soft tissue restriction Thank you for the opportunity to evaluate your patient. For Medicare and Medicare HMO plans, please review the plan of care and approve it. It will need to be FAXED BACK to us at [phone] for Medicare purposes. For Medicare only, by signing this I certify the plan of care. Please let me know if there are questions or concerns regarding this plan of care. Physician Signature: Date:
--- NOTE | 2018-11-07 15:58 | HP.PTEVAL_ITS ---
Patient's Visit Information GIANFRANCO GUADARRAMA is a 58 year old M referred to Physical Therapy by Alexy Mclean MD with a diagnosis of CERVICAL DDD. Date of Evaluation: 11/07/18 Physical Therapist: Paulo Wing PT, Cert MDT, OCS - Visit Plan Frequency: 2x /Week Duration: 4 Weeks Plan: ICTX 16#-22# pull,US/CP,CERVICAL POSTURAL EX'S MANUAL THERAPY- CERVICAL TRACTION - Subjective Findings: This 58 y/o male presents with physical therapy with cervical DDD. Patient developed left shoulder pain several year 3 months. Patient symptoms progressively worse. Patient had symptoms in left shoulder 6 years ago. Patient has seen chiropractor for cervical/lumbar. Symptoms worse with at night ,lifting work demands. Symptoms better with rest. Patient denies parathesia/tingling. Patient has dull pain ache. No trauma . No injection. Denies ALLEN ,tinnutis/nausea. Symptoms affect sleep. Patient symptosm affect QOL and job demands. 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 SOCIAL: - Pain Left Shoulder Pain Intensity (Out of 10): 6 Pain Intensity Range: 10 - Objective POSTURE: mild rounded shoulders. NEURO: denies parthesia/tingling,reflexes C5-6-7 2/3,mytomes inact. PALAPTION: unremarkable. AROM SHOULDER : flexion 160,abduction 160 degrees,ER 90,IR 85. MMT: RTC 5/5,DELTOID ,4/5. CERVICAL ROM: flexion min loss,lateral/flexion mod loss pain to left,extension mod loss - Special Tests C/S Radiculapathy - Left Upper limb tension test: Negative C/S Radiculapathy - Right Upper limb tension test: Negative C/S Radiculapathy - Left Spurlings: Negative C/S Radiculapathy - Right Spurlings: Positive C/S Radiculapathy - Left Cervical distraction: Negative C/S Radiculapathy - Right Cervical distraction: Negative Sharp Glenn: Negative Vertebral Artery Test: Negative Alar Ligament Test: Negative Cervical Sitting: Protrusion - Mechanical Response: No effect Cervical Sitting: Protrusion - Symptoms During Testing: No effect Cervical Sitting: Protrusion - Symptoms After Testing: No effect Cervical Sitting: Retraction - Mechanical Response: No effect Cervical Sitting: Retraction - Symptoms During Testing: Increases Cervical Sitting: Retraction - Symptoms After Testing: No worse Cervical Sitting: Retraction-Extension - Mechanical Response: No effect Cerv Sitting: Retraction-Extension - Symptoms During Testing: Increases Cerv Sitting: Retraction-Extension - Symptoms After Testing: No worse Cervical Sitting: Sidebend Right - Mechanical Response: No effect Cervical Sitting: Sidebend Right - Symptoms During Testing: No effect Cervical Sitting: Sidebend Right - Symptoms After Testing: No effect Cervical Sitting: Sidebend Left - Mechanical Response: No effect Cervical Sitting: Sidebend Left - Symptoms During Testing: Increases Cervical Sitting: Sidebend Left - Symptoms After Testing: No worse Cervical Sitting: Rotation Right - Mechanical Response: No effect Cervical Sitting: Rotation Right - Symptoms During Testing: No effect Cervical Sitting: Rotation Right - Symptoms After Testing: No effect Cervical Sitting: Rotation Left - Mechanical Response: No effect Cervical Sitting: Rotation Left - Symptoms During Testing: Increases Cervical Sitting: Rotation Left - Symptoms After Testing: No worse R Shoulder Supine Impingement Test - RC Tear: Negative R Shoulder Drop Sign - IS Test: Negative R Shoulder Empty Can - SS: Negative R Shoulder Belly Press - SupScap: Negative R Shoulder Neer - Impingement: Negative R Shoulder Koroma Rafa - Impingement: Negative - Goals Goal 1:: Patient to be Independant with HEP. Goal Time Frame: 4-6 Weeks Goal 2:: Patient to improve posture for ADL'S. Goal Time Frame: 4-6 Weeks Goal 3:: Decrease cervical radiculopathy with shoulder symptoms by 50% or greater to improve function. Goal Time Frame: 4-6 Weeks Goal 4:: Patient to improve cervical ROM for function of recovery Goal Time Frame: 4-6 Weeks Goal 5:: Patient to improve cervial ELIER score by 5 points or greater to improve QOL. Goal Time Frame: 4-6 Weeks - Rehabilitation Potential Physical Therapy Diagnosis: This patient has cervical radiculopathy with symptoms to left shoulder worse with movement,impairs ADLS ,job demands and difficulty with sleeping Rehabilitation Potential: Good - Anticipated Interventions Patient/Client Instruction: Educate patient on: Condition, Plan of Care For the Purpose of:: To decrease pain, To increase ROM, To improve muscle performance and motor function, To improve ability to perform ADL's, To increase tolerance to activity/condition/position, To improve ability of physical actions for home/community/work/leisure, To improve health of tissue, To decrease soft tissue restriction, To increase flexibility/ROM, To reduce risk of recurrence, To improve ability to perform tasks related to life management Therapeutic Exercise to Include: Strength training, Postural training, Flexibilty training, Active ROM, Win Exercises For the Purpose of:: To decrease pain, To increase ROM, To improve muscle pe rformance and motor function, To improve ability to perform ADL's, To improve ability of physical actions for home/community/work/leisure, To improve health of tissue, To decrease soft tissue restriction, To increase flexibility/ROM, To improve ability to perform tasks related to life management Manual Therapy Techniques to Include: Mobilization Comment: CERVICAL TRACTION For the Purpose of:: To decrease pain, To increase ROM, To improve muscle performance and motor function, To increase tolerance to activity/condition/ position, To improve health of tissue, To decrease soft tissue restriction TENS: Yes IF ES: Yes Cryotherapy (ice pack, ice massage): Yes Thermo therapy (hot pack): Yes Ultrasound (thermal/non thermal): Yes Intermittent cervical traction: Yes - 16#-22# For the Purpose of:: To decrease pain, To increase ROM, To improve nutrient delivery to tissue, To increase oxygenation perfusion, To improve health of tissue, To decrease soft tissue restriction Thank you for the opportunity to evaluate your patient. For Medicare and Medicare HMO plans, please review the plan of care and approve it. It will need to be FAXED BACK to us at [phone] for Medicare purposes. For Medicare only, by signing this I certify the plan of care. Please let me know if there are questions or concerns regarding this plan of care. Physician Signature: Date:
--- NOTE | 2018-12-12 10:54 | HP.PTDCSUM ---
HP - PT D/C Summary It has been my pleasure to treat GIANFRANCO GUADARRAMA under orders from Alexy Mclean MD, for the diagnosis of CERVICAL DDD for a total of 6 visit(s). Discharge Date: 12/12/18 Please see the following information for a summary of their discharge status. - Subjective Subjective: Doing alot better along with chiropractor. Worse at night - Pain Left Shoulder Pain Intensity (Out of 10): 0 - Overall Improvement % Improvement: 55 - Objective Objective/Function: POSTURE: mild foward posture. CERVIAL ROM: flexion min ,lateral flexion /rotation min loss,extension min loss. MMT: RTC/DELTOID 4/5 EXCEP LATERAL DELTOID 4-5. -ANR - Goals Goal 1:: Patient to be Independant with HEP. Goal Progress: Goal Met Goal 2:: Patient to improve posture for ADL'S. Goal Progress: Goal Met Goal 3:: Decrease cervical radiculopathy with shoulder symptoms by 50% or greater to improve function. Goal Progress: Goal Met Goal 4:: Patient to improve cervical ROM for function of recovery Goal Progress: Goal Met Goal 5:: Patient to improve cervial ELIER score by 5 points or greater to improve QOL. Goal Progress: Goal Met - Plan Plan: D/C - D/C Information Discharge Comments: WIIL CONT WITH CHIROPRACTOR If there are questions or concerns regarding this patient's physical therapy, please feel free to call me at [phone]. Thank you for the referral of this patient. Sincerely, Paulo Wing, PT, Cert MDT, OCS
== END 2018-12-12 19:00 | disposition home or self-care (01) ==
LOC: PT 10:30
PROVIDERS: Family Provider Family Medicine; PCP Family Medicine; Referring Provider Family Medicine; Visit Provider Family Medicine
DX: M50.30 Other cervical disc degeneration, unspecified cervical region (principal)
CPT/HCPCS: 97012; 97035; 97116; 97161; 97530

== ENCOUNTER → 2019-01-13 15:24 | Outpatient (CLI) | payer BC, SELFPAY ==
[2018-02-10 13:03] VITALS: BMI 30.4
[2019-01-13 17:30] LABS: Absolute Lymphocyte Count 1.29 X10^3/ul (0.83-4.51); Absolute Neutrophil Count 3.3 X10^3/uL (2.0-7.7); Basophil# 0.02 X10^3/uL; Basophil% 0.4 % (0-1); Eosinophil# 0.11 X10^3/uL; Eosinophils% 2.1 % (0-5); Hematocrit 44.6 % (40-54); Hemoglobin 15.2 g/dl (13.0-16.5); Lymphocyte # 1.29 X10^3/ul (4.0); Lymphocyte % 24.7 % (19-41); Mean Corp Hgb Conc 34.1 g/gl (32-36); Mean Corpuscular Hgb 32.8 pg (27.0-32.0); Mean Corpuscular Volume 96.1 fL (80-94); Mean Platelet Vol. 11.4 fl (6.2-12.0); Monocyte% 9.6 % (0-10); Neutrophil # 3.29 X10^3/uL (2.7-7.7); Platelet Count 179 K/mm3 (150-450); RBC Distribution Width CV 12.8 % (11.6-14.6); RBC Distribution Width SD 43.9 fl (35.1-43.9); Red Blood Count 4.64 M/mm3 (4.6-6.2); White Blood Count 5.2 K/mm3 (4.4-11.0)
[2019-01-13 17:32] LABS: POSITIVE COUNT NO; POSITIVE DIFFERENTIAL NO; POSITIVE MORPHOLOGY NO
[2019-01-13 17:45] LABS: AST(SGOT) 35 U/L (15-37); Alanine Aminotransfer ALT/SGPT 52 U/L (16-61); Albumin, Serum 3.6 g/dL (3.2-5.0); Alkaline Phosphatase 117 U/L (45-117); Anion Gap 9 (5-15); BUN 28 mg/dL (7-18); BUN/Creat Ratio 32.5 RATIO (10-20); Chloride 108 mmol/L (98-107); Creatinine, Serum 0.86 mg/dL (0.70-1.30); EST Glomerular Filtration Rate 96 mL/min (>60); Est Glom Filt Rate - Afr Amer 116 mL/min (>60); Globulin 3.7 g/dL (2.2-4.2); Glucose 100 mg/dL (74-106); PSA,Total - Annual Screen 1.41 ng/mL (0.00-4.00); Potassium 3.7 mmol/L (3.5-5.1); Protein, Total 7.3 g/dL (6.4-8.2); Sodium Level 142 mmol/L (136-145)
== END ==
PROVIDERS: Family Provider Family Medicine; PCP Family Medicine; Visit Provider Family Medicine
DX: F10.10 Alcohol abuse, uncomplicated (principal); Z12.5 Encounter for screening for malignant neoplasm of prostate
CPT/HCPCS: 36415; 80053; 84153; 85025; G0103

== ENCOUNTER → 2019-06-18 | Outpatient (CLI) | payer BC, SELFPAY ==
[2018-02-10 13:03] VITALS: BMI 30.4
--- NOTE | 2019-06-18 12:55 | RAD_ITS ---
STUDY: X-RAY CHEST REASON FOR EXAM: Male, 59 years old. Symptoms of cold, 10 days TECHNIQUE: PA and lateral chest COMPARISON: 02/10/2018 FINDINGS: The lungs are clear and expanded. Normal cardiomediastinal silhouette, pilar and pleural margins. No acute osseous or upper abdominal process. RAD/Chest PA and Lateral IMPRESSION: No acute cardiopulmonary process. No convincing evidence of acute pneumonia. Electronically Signed: Nabor Austin MD at 13:12 EDT Tel , Service support ,
== END | disposition home or self-care (01) ==
LOC: MTRAD 12:22
PROVIDERS: Family Provider Family Medicine; PCP Family Medicine; Referring Provider Family Medicine; Visit Provider Family Medicine
DX: J40 Bronchitis, not specified as acute or chronic (principal)
CPT/HCPCS: 71046

== ENCOUNTER → 2019-07-25 | Outpatient (CLI) | payer BC, SELFPAY ==
--- NOTE | 2019-07-25 17:57 | CT_ITS ---
STUDY: LOW DOSE CT LUNG CANCER SCREENING REASON FOR EXAM: Male, 59 years old. Long history of smoking RADIATION DOSAGE (If Supplied By Facility): CTDIvol = ( 3.02 ) mGy, DLP = ( 104.95 ) mGycm TECHNIQUE: No contrast was administered. Low dose technique was utilized (average mAS-38 and kVp 120). 1.25 mm axial source images with a slice interval of 1.25-mm were reconstructed in lung windows. 2.5 mm axial source images with a slice interval of 2.5-mm were reconstructed in lung windows. 5.0 mm axial source images with a slice interval of 5.0-mm were reconstructed in soft tissue windows. Nodule measured using lung windows on PACS and/or independent workstation with automated measurement of minimum and maximum diameter. Nodule measurement reported as average diameter rounded to the nearest whole number. Growth is defined as an increase ins size of greater than 1.5 mm. COMPARISON: None. NODULES: Subsegmental atelectases are noted in the left lung base. There is no demonstrated pleural abnormality. Normal heart and pericardium. Normal mediastinum. Normal hilar regions. Normal unenhanced pulmonary arteries. Normal aorta arch and descending thoracic aorta. Normal osseous structures. There is no demonstrated abnormality of the visualized upper abdomen. CT/Low Dose CT Lung Screening IMPRESSION: Lung-RADS category 2. Benign findings. Recommendation: Routine screening CT scan in one year. IMPORTANT NOTES FOR USE: ACR Lung-RADS Version 1.0 Assessment Categories Release Date: March 02, 2014 Category: Coded 0-4 bases on nodule(s) with highest degree of suspicion. Negative screen is defined as categories 1 and 2; a positive screen is defined as categories 3 and 4. Category 3 and 4A nodules that are unchanged on interval CT should be coded as category 2, and individuals returned to screening in 12 months. Category 4X: Category 3 or 4 nodules with additional imaging findings that increase the suspicion of lung cancer, such as spiculation, GGN that doubles in size in 1 year, enlarged lymph notes, etc. Category Modifiers: S (significant finding unrelated to lung cancer) and C (prior history of treated lung cancer) may be added to the 0-4 Lung-RADS Electronically Signed: Xena Sharp, at 4:31 EDT Tel , Service support ,
== END | disposition home or self-care (01) ==
LOC: CT 17:54
PROVIDERS: Family Provider Family Medicine; PCP Family Medicine; Referring Provider Family Medicine; Visit Provider Family Medicine
DX: Z72.0 Tobacco use (principal); Z12.2 Encounter for screening for malignant neoplasm of respiratory organs
CPT/HCPCS: G0297

== ENCOUNTER 2019-11-12 13:31 | Emergency (ER) | payer BC, SELFPAY ==
[2019-11-12 13:33] VITALS: BP 196/120; PULSE 87; RESP 16; TEMP 36.6; O2SAT 97; BMI 30.7
[2019-11-12] MEDS: Ibuprofen 600 MG Tablet PO (14:46)
--- NOTE | 2019-11-12 15:17 | ED.VIS.GEN ---
History of Present Illness Chief Complaint: Occup Expose Informant: Patient Onset: Yesterday Context: Gradual Onset Timing: Continuous Narrative: Patient is a 59-year-old male with history of hypertension presenting with left hand burning and pain. 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 Patient was not wearing gloves. He washed up like normal afterwards. He states around 5 AM he started noticed some pain in his right hand. He had a burning sensation. He used an ice pack and then went to work. As the day went on he has had worsening pain. He describes it as throbbing and needlelike sensation. The pain worsened he decided to come to the emergency room for further evaluation. Patient did bring the container of the chemical with him. Patient denies any other complaints at this time. Patient has placed Vaseline ointment/triple antibiotic ointment on it which seems to help. Past Medical History - Allergies and Home Meds Allergies/Adverse Reactions: Allergies No Known Allergies Allergy (Verified 11/12/19 13:32) Primary Care Physician: Alexy Mclean MD [Primary Care Provider] - Past Medical History: - - Hypertension Surgical History: noncontributory, - - ear tubes, jaw repair Smoking Status: Current some day smoker - Family History Maternal Family History: Reports: Heart Disease Paternal Family History: Reports: Heart Disease Review of Systems General: Denies: Chills, Fever, Sweats Eyes: Denies: Visual changes - bilaterally, Diplopia ENT: Denies: Rhinorrhea, Sore throat Cardiovascular: Denies: Chest pain, Palpitations Respiratory: Denies: Dyspnea, Cough, Dyspnea on exertion Gastrointestinal: Denies: Abdominal pain, Nausea, Vomiting, Diarrhea, Melena, Hematochezia Genitourinary: Denies: Dysuria, Hematuria, Frequency Musculoskeletal: Reports: Extremity Pain - right hand . Denies: Back pain Skin: Reports: Rash - right hand . Denies: Wounds Neurological: Denies: Headache, Weakness, Numbness Physical Exam Vital Signs/Narrative: Vital Signs Temp Pulse Resp BP Pulse Ox 11/12/19 13:33 97.9 F 87 16 196/120 H 97 Inital Vital Signs reviewed: Yes General: Well nourished, Well developed, No Acute Distress Head: Normocephalic, Atraumatic Eyes: Perrl, EOMI ENT: Moist mucous membranes, No rhinorrhea Neck: Supple, Nontender Cardiovascular: Regular rate, Regular rhythm, No murmurs Respiratory: No distress, CTA bilaterally Back: Nontender, Normal Inspection Extremities: Nontender, No edema Skin: Normal color, Rash - Mild diffuse erythema of the left hand most pronounced at the skin folds. Of the patient's hand is shiny as it is covered in Vaseline that was applied prior to arrival. No sloughing of the skin is noted.. Negative for: Trauma Neurological: Alert, Oriented x3, Cranial nerves II-XII grossly intact, Normal Strength, Normal Sensation Psychological: Normal affect, Normal Mood Diagnostic/Tx/Re-eval - Medical Decision Making Patient is evaluated after chemical exposure to his hand. He has burning pain. He has some mild erythema with no significant other abnormalities. Likely this is a chemical burn. I did look up the active ingredients in Zep-O-shine and it appears to be a surfactant. There is no hydrofluoric acid in these chemicals. Discussed with poison control who is more concerned about the paint thinner exposure. Likely he has a contact dermatitis from the hydrocarbon exposure. Treatment is symptomatic. I did discuss this with Ryan from poison control. Patient is given Motrin emergency room. He is counseled on using soap to wash his hands as well as Vaseline/bacitracin ointment if he feels that it helps with his symptoms. He will alternate Tylenol and ibuprofen as needed. Patient is counseled on signs and symptoms requiring return to the emergency room. Patient verbalizes agreement and understand this plan. Patient discharged home in stable and improved condition. ED Disposition - Plan for ED Patient: Disposition: Home or Assisted Living Diagnosis: Contact dermatitis due to hydrocarbon group Instructions: SKIN EXPOSURE, Chemical Referrals: Alexy Mclean MD [Primary Care Provider] - Additional Instructions: At this time the only treatment is pain control and cleaning the skin. Wash hands frequently with soap and water. You can take ibuprofen and/or Tylenol for pain. If the blistering or redness get worse to either return to the emergency room or go to a local burn center. Please follow-up for wound check later this week with your primary care doctor. If you want to apply ointment to it either apply bacitracin ointment or Vaseline. Try not to use triple antibiotic ointment as this can actually irritate the skin further.
[2019-11-12 15:30] VITALS: BP 123/68; PULSE 84; RESP 15; O2SAT 98
== END 2019-11-12 15:31 | disposition home or self-care (01) ==
PROVIDERS: Emergency Provider Emergency Medicine; Family Provider Family Medicine; PCP Family Medicine
DX: L24.2 Irritant contact dermatitis due to solvents (principal); I10 Essential (primary) hypertension; F17.200 Nicotine dependence, unspecified, uncomplicated; Z79.82 Long term (current) use of aspirin; Z79.899 Other long term (current) drug therapy
CPT/HCPCS: 99283

== ENCOUNTER → 2020-09-03 | Outpatient (CLI) | payer BC, SELFPAY ==
[2020-09-03 09:39] LABS: Hematocrit 45.5 % (40-54); Hemoglobin 15.9 g/dL (13.0-16.5); Mean Corp Hgb Conc 34.9 g/dL (32-36); Mean Corpuscular Hgb 33.1 pg (27.0-32.0); Mean Corpuscular Volume 94.6 fL (80-94); Mean Platelet Vol. 11.1 fl (6.2-12.0); Platelet Count 199 K/mm3 (150-450); RBC Distribution Width SD 45.2 fl (35.1-43.9); Red Blood Count 4.81 M/mm3 (4.6-6.2)
[2020-09-03 10:23] LABS: ALB/GLOB Ratio 0.9 RATIO (0.9-2.4); AST(SGOT) 27 U/L (15-37); Alanine Aminotransfer ALT/SGPT 40 U/L (16-61); Albumin, Serum 3.5 g/dL (3.2-5.0); Alkaline Phosphatase 109 U/L (45-117); Anion Gap 5 (5-15); BUN 23 mg/dL (7-18); Calcium,Total 9.5 mg/dL (8.5-10.1); Chloride 108 mmol/L (98-107); Cholesterol 194 mg/dL (200); Creatinine, Serum 0.92 mg/dL (0.70-1.30); EST Glomerular Filtration Rate 89 mL/min (>60); Est Glom Filt Rate - Afr Amer 107 mL/min (>60); Globulin 3.8 g/dL (2.2-4.2); Glucose 106 mg/dL (74-106); High Density Lipoprotein 43 mg/dL; PSA,Total - Annual Screen 1.74 ng/mL (0.00-4.00); Potassium 3.6 mmol/L (3.5-5.1); Protein, Total 7.3 g/dL (6.4-8.2); Sodium Level 140 mmol/L (136-145); Triglycerides 190 mg/dL; Very Low Density Lipoprotein 38 mg/dL (5-40)
== END | disposition home or self-care (01) ==
LOC: MFPLAB 08:01
PROVIDERS: PCP Family Medicine; Referring Provider Family Medicine; Visit Provider Family Medicine
DX: I10 Essential (primary) hypertension (principal); F10.10 Alcohol abuse, uncomplicated; Z12.5 Encounter for screening for malignant neoplasm of prostate
CPT/HCPCS: 36415; 80053; 80061; 84153; 85027; G0103

== ENCOUNTER → 2021-06-15 09:16 | Outpatient (CLI) | payer BC, SELFPAY ==
--- NOTE | 2021-06-15 09:25 | RAD_ITS ---
STUDY: X-RAY - LUMBAR SPINE REASON FOR EXAM: Male, 61 years old. LUMBAGO WITH SCIATICA TECHNIQUE: 5 view(s) of the lumbar spine were obtained. COMPARISON: None FINDINGS: Normal lumbar lordosis. There is no substantial scoliosis. There is a normal alignment of the vertebrae. There is mild multilevel endplate spondylosis of the lumbar vertebrae. Normal disc space heights. There is no demonstrated fracture. The soft tissue structures are unremarkable. RAD/L/S Spine Min 4 Views IMPRESSION: No acute abnormality, and essentially unremarkable for age. Electronically Signed: Richie Bustamante MD at 16:20 EDT , Service support ,
== END ==
PROVIDERS: PCP Family Medicine; Referring Provider Family Medicine; Visit Provider Family Medicine
DX: M54.40 Lumbago with sciatica, unspecified side (principal)
CPT/HCPCS: 72110

== ENCOUNTER → 2021-09-21 | Outpatient (CLI) | payer BC, SELFPAY | END | disposition home or self-care (01) | LOC: LAB 15:33 | PROVIDERS: PCP Family Medicine; Referring Provider Family Medicine; Visit Provider Family Medicine | DX: Z20.822 Contact with and (suspected) exposure to COVID-19 (principal) | CPT/HCPCS: 87635; U0005; U0003 ==

== ENCOUNTER → 2022-06-21 | Outpatient (CLI) | payer BC, SELFPAY ==
[2022-06-21 18:26] LABS: ALB/GLOB Ratio 0.9 RATIO (0.9-2.4); AST(SGOT) 33 U/L (15-37); Alanine Aminotransfer ALT/SGPT 47 U/L (16-61); Albumin, Serum 3.4 g/dL (3.2-5.0); Alkaline Phosphatase 101 U/L (45-117); Anion Gap 5 (5-15); BUN 27 mg/dL (7-18); BUN/Creat Ratio 30.1 RATIO (10-20); Chloride 108 mmol/L (98-107); Cholesterol 171 mg/dL (200); EST Glomerular Filtration Rate 91 mL/min (>60); Est Glom Filt Rate - Afr Amer 110 mL/min (>60); Globulin 3.8 g/dL (2.2-4.2); Glucose 93 mg/dL (74-106); High Density Lipoprotein 50 mg/dL; PSA,Total - Annual Screen 1.56 ng/mL (0.00-4.00); Potassium 3.6 mmol/L (3.5-5.1); Protein, Total 7.2 g/dL (6.4-8.2); Sodium Level 140 mmol/L (136-145); Triglycerides 273 mg/dL; Very Low Density Lipoprotein 55 mg/dL (5-40)
== END | disposition home or self-care (01) ==
LOC: MFPLAB 15:28
PROVIDERS: PCP Family Medicine; Referring Provider Family Medicine; Visit Provider Family Medicine
DX: I10 Essential (primary) hypertension (principal); E55.9 Vitamin D deficiency, unspecified; Z12.5 Encounter for screening for malignant neoplasm of prostate
CPT/HCPCS: 36415; 80053; 80061; 82306; 84153; G0103

== ENCOUNTER → 2022-12-28 | Outpatient (CLI) | payer BC, SELFPAY ==
--- NOTE | 2022-12-28 14:25 | CT_ITS ---
STUDY: LOW DOSE CT LUNG CANCER SCREENING REASON FOR EXAM: Male, 62 years old. TOBACCO USER. The patient smoked half a pack of cigarettes per day for 40 years. RADIATION DOSAGE (If Supplied By Facility): CTDIvol = ( 3.02 ) mGy, DLP = ( 101.18 ) mGycm TECHNIQUE: No contrast was administered. Low dose technique was utilized (average mAS-38 and kVp 120). 1.25 mm axial source images with a slice interval of 1.25-mm were reconstructed in lung windows. 2.5 mm axial source images with a slice interval of 2.5-mm were reconstructed in lung windows. 5.0 mm axial source images with a slice interval of 5.0-mm were reconstructed in soft tissue windows. COMPARISON: Comparison is made with prior study dated 07/25/2019. NODULES: No suspicious nodules are seen. Emphysema: Stable mild increased markings in the peripheral aspect of the lingular segment of the left upper lobe suggestive of scarring. Endobronchial lesion: None Aorta: Mild degree of atherosclerotic changes of the thoracic aorta. CORONARY ARTERIES: Coronary artery calcification is not seen. Heart: Unremarkable Pulmonary artery: Remarkable Mediastinal nodes: Unremarkable Other chest and abdominal findings: CT/Low Dose CT Lung Screening IMPRESSION: Lung-RADS category 2 - Continue annual screening with LDCT in 12 months. IMPORTANT NOTES FOR USE: ACR Lung-RADS Version 1.1 Assessment Categories Release Date: 2018 Category: Coded 0-4 bases on nodule(s) with highest degree of suspicion. Negative screen is defined as categories 1 and 2; a positive screen is defined as categories 3 and 4. Category 3 and 4A nodules that are unchanged on interval CT should be coded as category 2, and individuals returned to screening in 12 months. Category 4X: Category 3 or 4 nodules with additional imaging findings that increase the suspicion of lung cancer, such as spiculation, GGN that doubles in size in 1 year, enlarged lymph notes, etc. Category Modifiers: S (significant finding unrelated to lung cancer) Electronically Signed: Kal Morris MD at 14:59 EST ,
== END | disposition home or self-care (01) ==
LOC: CT 14:22
PROVIDERS: PCP Family Medicine; Referring Provider Family Medicine; Visit Provider Family Medicine
DX: F17.210 Nicotine dependence, cigarettes, uncomplicated (principal)
CPT/HCPCS: 71271

== ENCOUNTER 2023-01-31 02:23 | Emergency (ER) | payer BC, SELFPAY ==
[2023-01-31 02:24] VITALS: BP 165/114; PULSE 113; RESP 20; TEMP 36.8; O2SAT 95; BMI 27.1
[2023-01-31 02:28] VITALS: O2SAT 96
--- NOTE | 2023-01-31 02:40 | EDS_ITS ---
HPI HPI - URI History of Present Illness Chief Complaint: Cold Sx Informant: patient Onset/Context/Timing Onset: Days (5) Context: Gradual Onset Timing: Continuous Quality: Tightness Location: Chest Worsened by: - (Laying down) Relieved by: - (Nothing) Associated Symptoms Associated Symptoms: Positive for Nasal Congestion, Headache, Sinus Pressure, Shortness of Breath, Chest Pain and Productive Cough; Negative for Myalgias, Nausea, Vomiting, Diarrhea, Nonproductive cough or Hemoptysis Narrative Narrative: Patient presents with cough and shortness of breath that has been getting worse over the last 5 days. Patient states it has been constant over the last 5 days. Patient states he is coughing up some clear sputum. Patient states it is worse whenever he tries to lay down. Patient states he saw his primary care physician recently who prescribed prednisone, albuterol inhaler, and Tessalon Perles. Patient admits to some subjective fevers. Patient did not take his temperature at home. Patient also admits to some nasal congestion, sore throat, and rhinorrhea. Patient also admits to a mild headache. ROS ROS ED Constitutional Constitutional ED: Reports fever(s) and subjective; Denies chills Eyes Eyes: Denies blurry vision or change in vision ENT ENT ED: Reports rhinorrhea and sore throat Cardiovascular Cardiovascular: Reports chest pain; Denies palpitations Respiratory/Chest Respiratory/Chest: Reports cough and dyspnea Gastrointestinal Gastrointestinal: Denies nausea or vomiting Genitourinary Genitourinary ED: Reports urinary frequency; Denies dysuria or hematuria Musculoskeletal Musculoskeletal: Denies back pain or neck pain Integumentary Denies abscess or rash Neurologic Neurologic: Reports headache(s); Denies weakness Allergic/Immunologic Allergic/Immunologic ED: Denies mouth swelling or urticaria [facility] Medical History (Updated 01/31/23 @ 03:[address] Anant Mares, DO) HTN (hypertension) Hypercholesterolemia Home Medications losartan 50 mg tablet 50 mg PO DAILY ##30 05/09/16 [Rx Last Taken 02/10/18 08:00] aspirin 81 mg tablet,delayed release 81 mg PO DAILY@0800 02/11/18 [Rx Last Taken Unknown] metoprolol succinate 50 mg tablet,extended release 24 hr 50 mg PO DAILY ##30 02/11/18 [Rx Last Taken Unknown] Allergy/AdvReac Type Severity Reaction Status Date / Time No Known Allergies Allergy Verified 11/12/19 13:32 Surgical History no surgical history no surgical history Social History Smoking Status: Current some day smoker tobacco type: cigarettes EXAM Physical Exam Const Vital Signs: 01/31/23 02:24 01/31/23 02:28 01/31/23 02:54 Temperature 98.3 F Temperature Source Temporal Pulse Rate 113 H 74 Respiratory Rate 20 H 22 H Respiratory Effort Short of Breath Blood Pressure 165/114 H Blood Pressure Mean 131 Pulse Ox 95 Oxygen Delivery Method Room Air Room Air Positive well nourished and well developed General Appearance ED: well developed HEENT Reports moist mucous membranes Neck supple and no JVD Resp normal respiratory effort Auscultation: diminished lung sounds diffuse Cardio regular rate, regular rhythm and no murmurs GI normal to inspection, nondistended, normoactive bowel sounds and non-tender Palpation: soft Extremity normal to inspection General Extremety ED: Negative for edema or tenderness General Extremity: Negative for edema Neuro oriented x3, CN's II-XII intact bilaterally and no sensory deficits noted Sensorium / Orientation: alert Motor Exam: strength 5/5 throughout Psych mental status grossly normal Skin no rashes or lesions noted MDM MDM MDM Narrative Medical decision making narrative: Differential diagnosis includes viral upper respiratory infection, viral bronchitis, pneumonia, pneumothorax, COVID-19 infection, and influenza infection. Chest x-ray will be obtained to assess for pneumonia and pneumothorax. COVID-19 rapid antigen will be obtained to assess for COVID-19 infection. Influenza A and influenza B antigens will be obtained to assess for influenza infection. Lab Data Attestation: I reviewed the patient's lab results. Lab results narrative: COVID-19 rapid antigen was reviewed and was negative. Influenza A and influenza B rapid antigens were reviewed and were negative. Radiography Diagnostic Testing: Clinical Impression(s) from Imaging Studies Chest X-Ray 01/31/23 02:44 IMPRESSION: No radiographic evidence of acute cardiopulmonary disease. Electronically Signed: Xena Sharp MD at 3:40 EDT Reading Location ID and State: [facility] / [place] Tel , Service support , [place] and lateral chest x-ray was obtained. There are 2 views. On my independent interpretation, lung davis are clear. There is normal cardiac silhouette. Bony thorax is normal. There is no acute process noted. Radiologist also interpreted the x-ray and agrees. Treatment and Re-Evaluation Narrative: Patient was advised of his findings. Patient was instructed to continue his prednisone and his albuterol inhaler as prescribed. Patient was instructed to use [id number] Mucinex as needed as an expectorant. Patient was instructed to follow-up with his primary care physician in 5 to 7 days. Patient understood and was agreeable with the plan. All questions were answered. Discharge Plan Triage Chief Complaint: Cold Sx ED Provider: Anant Mares Dx/Rx/DC Orders Clinical Impression: Viral URI with cough, Nicotine abuse, HTN (hypertension) Instructions: ED URI, Viral, No Abx (Adult) Prescriptions: No Action losartan 50 MG tablet 50 mg PO DAILY Qty: 30 0RF Label Comments: blood pressure aspirin 81 MG tablet 81 mg PO DAILY@0800 0RF metoprolol succinate 50 MG tablet extended release 24 hr 50 mg PO DAILY Qty: 30 0RF Primary Care Provider: Alexy Mclean Referrals: Alexy Mclean MD [Primary Care Provider] - 5-7 Days Disposition Disposition: Home, Self Care
--- NOTE | 2023-01-31 02:44 | RAD_ITS ---
INDICATION: Cough EXAMINATION/TECHNIQUE: X-RAY - XR Chest 2 Views COMPARISON: None. FINDINGS: LINES/DEVICES: None. LUNGS: No consolidation, edema or effusion. No pneumothorax. MEDIASTINUM AND CARDIOVASCULAR STRUCTURES: Cardiac silhouette not enlarged. Central airways and mediastinal contour are unremarkable. BONES AND SOFT TISSUES: Unremarkable. RAD/Chest PA and Lateral IMPRESSION: No radiographic evidence of acute cardiopulmonary disease. Electronically Signed: Xena Sharp MD at 3:40 EDT ,
[2023-01-31] MEDS: Ipratropium/Albuterol Sulfate 3 ML AMPUL.NEB INHALATION (02:53)
[2023-01-31 02:54] VITALS: PULSE 74; RESP 22
[2023-01-31 04:00] VITALS: BP 146/80; PULSE 88; RESP 19; TEMP 36.8; O2SAT 97
== END 2023-01-31 04:01 | disposition home or self-care (01) ==
PROVIDERS: Emergency Provider Emergency Medicine; PCP Family Medicine; Visit Provider Emergency Medicine
DX: J06.9 Acute upper respiratory infection, unspecified (principal); F17.210 Nicotine dependence, cigarettes, uncomplicated; E78.00 Pure hypercholesterolemia, unspecified; R51.9 Headache, unspecified; I10 Essential (primary) hypertension; Z20.822 Contact with and (suspected) exposure to COVID-19
CPT/HCPCS: 71046; 87428; 94640; 99282

== ENCOUNTER → 2023-07-04 | Outpatient (CLI) | payer BC, SELFPAY | END | disposition home or self-care (01) | LOC: MFPLAB 15:19 | PROVIDERS: PCP Family Medicine; Visit Provider Family Medicine | DX: Z00.00 Encounter for general adult medical examination without abnormal findings (principal) ==

== ENCOUNTER → 2023-07-05 | Outpatient (CLI) | payer BC, SELFPAY ==
[2023-07-05 10:24] LABS: Vitamin D,25 Hydroxy 40.1 ng/mL
[2023-07-05 10:28] LABS: ALB/GLOB Ratio 0.9 RATIO (0.9-2.4); AST(SGOT) 15 U/L (15-37); Alanine Aminotransfer ALT/SGPT 32 U/L (16-61); Albumin, Serum 3.4 g/dL (3.2-5.0); Alkaline Phosphatase 98 U/L (45-117); Anion Gap 6 (5-15); BUN 20 mg/dL (7-18); Calcium,Total 9.3 mg/dL (8.5-10.1); Chloride 109 mmol/L (98-107); Cholesterol 191 mg/dL (200); Creatinine, Serum 0.77 mg/dL (0.70-1.30); EST Glomerular Filtration Rate 108 mL/min (>60); Est Glom Filt Rate - Afr Amer 131 mL/min (>60); Globulin 3.6 g/dL (2.2-4.2); Glucose 106 mg/dL (74-106); High Density Lipoprotein 43 mg/dL; PSA,Total - Annual Screen 2.62 ng/mL (0.00-4.00); Potassium 3.9 mmol/L (3.5-5.1); Sodium Level 140 mmol/L (136-145); Triglycerides 125 mg/dL; Very Low Density Lipoprotein 25 mg/dL (5-40)
== END | disposition home or self-care (01) ==
LOC: MFPLAB 08:21
PROVIDERS: PCP Family Medicine; Visit Provider Family Medicine
DX: E55.9 Vitamin D deficiency, unspecified (principal); I10 Essential (primary) hypertension; Z12.5 Encounter for screening for malignant neoplasm of prostate
CPT/HCPCS: 36415; 80053; 80061; 82306; 84153; G0103

== ENCOUNTER → 2024-02-11 | Outpatient (CLI) | payer BC, SELFPAY ==
[2024-02-11 17:34] LABS: Hemoglobin 14.2 g/dL (13.0-16.5); Mean Corp Hgb Conc 33.8 g/dL (32-36); Mean Corpuscular Hgb 29.2 pg (27.0-32.0); Mean Corpuscular Volume 86.2 fL (80-94); Mean Platelet Vol. 11.9 fl (6.2-12.0); Platelet Count 225 K/mm3 (150-450); RBC Distribution Width CV 13.9 % (11.6-14.6); RBC Distribution Width SD 44.4 fl (35.1-43.9); Red Blood Count 4.87 M/mm3 (4.6-6.2); White Blood Count 6.3 K/mm3 (4.4-11.0)
[2024-02-11 17:49] LABS: Vitamin B12 464 pg/mL (211-911)
[2024-02-11 18:02] LABS: ALB/GLOB Ratio 1.1 RATIO (0.9-2.4); AST(SGOT) 25 U/L (15-37); Alanine Aminotransfer ALT/SGPT 43 U/L (16-61); Albumin, Serum 3.7 g/dL (3.2-5.0); Alkaline Phosphatase 82 U/L (45-117); Anion Gap 5 (5-15); BUN 24 mg/dL (7-18); BUN/Creat Ratio 27.1 RATIO (10-20); Calcium,Total 9.2 mg/dL (8.5-10.1); Chloride 107 mmol/L (98-107); Creatinine, Serum 0.89 mg/dL (0.70-1.30); EST Glomerular Filtration Rate 92 mL/min (>60); Est Glom Filt Rate - Afr Amer 111 mL/min (>60); Globulin 3.4 g/dL (2.2-4.2); Glucose 89 mg/dL (74-106); Iron 65 ug/dL (65-175); Magnesium 1.8 mg/dL (1.6-2.6); Potassium 3.7 mmol/L (3.5-5.1); Protein, Total 7.1 g/dL (6.4-8.2); Sodium Level 140 mmol/L (136-145); Thyroid Stim Hormone (TSH) 1.43 uIU/mL (0.358-3.74); Troponin-I HS 11 pg/mL (3.0-78.0)
== END | disposition home or self-care (01) ==
LOC: MFPLAB 14:46
PROVIDERS: PCP Family Medicine; Visit Provider Family Medicine
DX: R42 Dizziness and giddiness (principal); R53.83 Other fatigue
CPT/HCPCS: 36415; 80053; 82607; 83540; 83735; 84443; 84484; 85027

== ENCOUNTER 2024-02-15 20:09 | Observation (INO) | payer BC, SELFPAY ==
[2024-02-15] VITALS (8 sets, daily range): BP systolic 153–205; BP diastolic 92–111; PULSE 70–88; RESP 18–22; TEMP 36.6; O2SAT 95–98; BMI 31.8
--- NOTE | 2024-02-15 20:28 | EKG12_ITS ---
Test Reason : CP Blood Pressure : / mmHG Vent. Rate : 083 BPM Atrial Rate : 083 BPM P-R Int : 158 ms QRS Dur : 076 ms QT Int : 338 ms P-R-T Axes : 027 -34 029 degrees QTc Int : 397 ms Sinus rhythm with occasional Premature ventricular complexes Left axis deviation Nonspecific ST abnormality Abnormal ECG Confirmed by Fabricio Roberts ([id number]), proposal editor XIAO GARY ([id number]) on 02/18/2024 6:35:42 AM Referred By: LISA Confirmed By:Fabricio Roberts
--- NOTE | 2024-02-15 20:31 | EDS_ITS ---
HPI History of Present Illness Chief Complaint: Chest Pain Detail of Chief Complaint: Chest pain Informant: patient Narrative Narrative: Patient presents to the emergency department complaint of chest discomfort that started prior to arrival in the emergency department. Patient states that he was sitting watching TV when he just started not feeling well. He told his family member he was to go lay down and then started having chest discomfort that he describes as a heaviness and he could hear his heartbeat in his left ear. EMS was called. Symptoms lasted about half an hour or so. Currently his pain-free. He had some intermittent episodes like this before. He is also describing some fatigue over the last several months. He describes some exertional dyspnea. Patient denies recent travel or surgery. [facility] Medical History HTN (hypertension) Hypercholesterolemia Home Medications aspirin 81 mg tablet,delayed release 81 mg PO DAILY@0800 02/11/18 [Rx Last Taken Unknown] atorvastatin 20 mg tablet 20 mg PO DAILY 02/15/24 [History Last Taken Unknown] hydrochlorothiazide 25 mg tablet 25 mg PO DAILY 02/15/24 [History Last Taken Unknown] losartan 50 mg tablet 100 mg PO DAILY 02/15/24 [History Last Taken Unknown] metoprolol succinate 50 mg tablet,extended release 24 hr 25 mg PO BID 02/15/24 [History Last Taken Unknown] Allergy/AdvReac Type Severity Reaction Status Date / Time No Known Allergies Allergy Verified 02/15/24 20:56 Social History Smoking Status: Former smoker ROS ROS ED Review of Systems ROS Unobtainable: other Constitutional Constitutional ED: Reports lethargy; Denies chills, fever(s), sweats or weight loss Eyes Eyes: Denies blurry vision, change in vision or diplopia ENT ENT ED: Denies rhinorrhea or sore throat Cardiovascular Cardiovascular: Reports chest pain; Denies orthopnea or racing heartbeat Respiratory/Chest Respiratory/Chest: Reports dyspnea and dyspnea on exertion; Denies cough, orthopnea or sputum Gastrointestinal Gastrointestinal: Denies abdominal pain, diarrhea, nausea or vomiting Genitourinary Genitourinary ED: Denies dysuria, hematuria or urinary frequency Musculoskeletal Musculoskeletal: Denies arthralgias, back pain, myalgias or neck pain Integumentary Denies abscess, Abrasions or rash Neurologic Neurologic: Denies headache(s) or weakness Psychiatric Psychiatric: Denies anxiety, depression or suicidal thoughts Endocrine Endocrinology: Denies polydipsia, polyphagia or polyuria Hematologic/Lymphatic Hematologic/Lymphatic: Denies easy bleeding, easy bruising or lymphadenopathy Allergic/Immunologic Allergic/Immunologic ED: Denies mouth swelling, tongue swelling or urticaria EXAM Physical Exam Const Vital Signs: 02/15/24 20:17 02/15/24 20:09 02/15/24 20:55 Temperature 97.8 F 97.8 F Temperature Source Oral Oral Pulse Rate 84 83 Respiratory Rate 22 H 22 H Blood Pressure 177/99 H 177/99 H Blood Pressure Mean 125 125 Pulse Ox 98 98 96 Oxygen Delivery Method Room Air Room Air Room Air 02/15/24 21:00 Temperature Temperature Source Pulse Rate 81 Respiratory Rate 20 H Blood Pressure 155/96 H Blood Pressure Mean 115 Pulse Ox 95 Oxygen Delivery Method Room Air Positive well nourished and well developed General Appearance ED: well developed and NAD HEENT Reports TM's clear and moist mucous membranes normocephalic and atraumatic; Negative for trauma or tenderness Tympanic Membrane ED: Yes TM's clear Eyes PERRL and EOMs intact bilaterally General Eye ED: Negative for pale conjunctiva or scleral icterus Neck no lymphadenopathy, supple and no JVD General: Negative for tenderness Chest Wall inspection of chest normal and palpation of chest normal Chest: Negative for tenderness Resp normal respiratory effort and clear to auscultation bilaterally Effort and Inspection: Negative for respiratory distress or pain with movement Auscultation: Negative for rhonchi, wheezes or diminished lung sounds Cardio regular rate, regular rhythm, S1 normal heart sound, S2 normal heart sound and no murmurs Peripheral Pulses: pulses 2+ throughout GI normal to inspection, nondistended, normoactive bowel sounds, soft to palpation, non-tender, non-distended and no masses Back/Spine no CVA tenderness and no thoracic nor lumbar tenderness Extremity normal to inspection General Extremety ED: Negative for edema General Extremity: Negative for edema Neuro oriented x3, CN's II-XII intact bilaterally, no sensory deficits noted and gait normal Sensorium / Orientation: awake, alert, oriented to person, oriented to place and oriented to time Motor Exam: strength 5/5 throughout and strength abnormal Psych mental status grossly normal Skin no rashes or lesions noted and no wounds Heart Score History: Moderately Suspicious ECG: Nonspecific Repolarization Age: >45 - <65 years Risk Factors: >/= 3 Risk Factors or History of CAD Troponin: </= Normal Limit Score: 5 MDM MDM MDM Narrative Medical decision making narrative: Patient presents with chest discomfort radiating towards his neck and ongoing fatigue for several months. In the differential would be acute coronary syndrome versus less likely PE or GI etiology. IV line established on arrival. EKG obtained showed sinus rhythm with ventricular rate of 83 bpm with occasional PVCs and nonspecific ST changes. CBC with differential was unremarkable. Chemistries unremarkable. Troponin normal at 14. Chest x-ray 1 view obtained interpreted by myself as no evidence of acute infiltrate or pneumothorax or acute disease process. Patient's heart score is a 5. Recommended admission for cardiac rule out. Will discuss with hospitalist to evaluate patient for admission. Patient has taken 2 baby aspirin's today therefore no aspirin was given. Lab Data Attestation: I reviewed the patient's lab results. Labs: Laboratory Results - last 24 hr 02/15/24 20:45 WBC 6.3 RBC 4.56 L Hgb 13.3 Hct 39.4 L MCV 86.4 MCH 29.2 MCHC 33.8 RDW Std Deviation 43.7 RDW Coeff of Donaldo 13.8 Plt Count 184 MPV 11.1 Immature Gran % (Auto) 0.300 Neut % (Auto) 56.5 Lymph % (Auto) 27.4 [place] % (Auto) 11.5 H Eos % (Auto) 3.5 Baso % (Auto) 0.8 Absolute Neuts (auto) 3.6 Absolute Lymphs (auto) 1.74 Nucleated RBC % 0 Sodium 144 Potassium 3.5 Chloride 113 H Carbon Dioxide 28.0 Anion Gap 3 L BUN 30 H Creatinine 0.81 Estim Creat Clear Calc 96.49 Est GFR (MDRD) Af Amer 123 Est GFR (MDRD) Non-Af 102 BUN/Creatinine Ratio 37.1 H Glucose 122 H Calcium 9.0 Troponin I High Sens 14 Radiography Diagnostic Testing: Clinical Impression(s) from Imaging Studies Chest X-Ray 02/15/24 20:42 IMPRESSION: Normal x-ray examination of the chest. Electronically Signed: Nabor Amezcua MD at 21:38 EDT , 1 view chest x-ray obtained interpreted by myself as no evidence of infiltrate or pneumothorax or acute disease process. EKG Initial EKG: Attestation: I personally reviewed and interpreted this EKG as follows: Comments: Sinus rhythm with rate of 83 bpm with PVCs and nonspecific ST changes Discharge Plan Dx/Rx/DC Orders Clinical Impression: History of hypercholesterolemia, Chest pain, HTN (hypertension) Disposition Disposition: Acute Care Hospital [facility]
--- NOTE | 2024-02-15 20:42 | RAD_ITS ---
STUDY: X-RAY CHEST REASON FOR EXAM: Male, 63 years old. chest pain TECHNIQUE: Single AP portable view of the chest. COMPARISON: None. FINDINGS: The lungs are clear and expanded. There is no demonstrated pleural abnormality. Normal size heart. Normal mediastinum and pilar. Normal visualized pulmonary arteries. Normal visualized aortic arch and descending thoracic aorta. Normal visualized thoracic spine. Normal visualized ribs, clavicles, and shoulders. There is no demonstrated abnormality of the visualized soft tissue structures of the upper abdomen. RAD/Chest 1 View (Portable) IMPRESSION: Normal x-ray examination of the chest. Electronically Signed: Nabor Amezcua MD at 21:38 EDT ,
[2024-02-15] MEDS: 0.9% Normal Saline (1000mL) 1,000 ML 150 ML IV (20:45)
[2024-02-15 20:52] LABS: Absolute Lymphocyte Count 1.74 X10^3/uL (0.83-4.51); Absolute Neutrophil Count 3.6 X10^3/uL (2.0-7.7); Basophil# 0.05 X10^3/uL; Basophil% 0.8 % (0-1); Eosinophil# 0.22 X10^3/uL; Eosinophils% 3.5 % (0-5); Hematocrit 39.4 % (40-54); Hemoglobin 13.3 g/dL (13.0-16.5); Lymphocyte # 1.74 X10^3/ul (0.83-4.51); Lymphocyte % 27.4 % (19-41); Mean Corp Hgb Conc 33.8 g/dL (32-36); Mean Corpuscular Hgb 29.2 pg (27.0-32.0); Mean Corpuscular Volume 86.4 fL (80-94); Mean Platelet Vol. 11.1 fl (6.2-12.0); Monocyte# 0.73 X10^3/uL; Monocyte% 11.5 % (0-10); NRBC Flagged by Analyzer 0 % (0-5); Neutrophil # 3.58 X10^3/uL (2.7-7.7); Neutrophil % 56.5 % (47-70); Platelet Count 184 K/mm3 (150-450); RBC Distribution Width CV 13.8 % (11.6-14.6); RBC Distribution Width SD 43.7 fl (35.1-43.9); Red Blood Count 4.56 M/mm3 (4.6-6.2); White Blood Count 6.3 K/mm3 (4.4-11.0)
[2024-02-15 21:10] LABS: Anion Gap 3 (5-15); BUN 30 mg/dL (7-18); BUN/Creat Ratio 37.1 RATIO (10-20); Chloride 113 mmol/L (98-107); Creatinine, Serum 0.81 mg/dL (0.70-1.30); EST Glomerular Filtration Rate 102 mL/min (>60); Est Glom Filt Rate - Afr Amer 123 mL/min (>60); Estimated Creatinine Clearance 96.49 ml/min; Glucose 122 mg/dL (74-106); Potassium 3.5 mmol/L (3.5-5.1); Sodium Level 144 mmol/L (136-145); Troponin-I HS (w/2H Reflex) 14 pg/mL (3.0-78.0)
--- NOTE | 2024-02-15 21:19 | PCM.HP.STD ---
HPI - General General Date of Admission: 02/15/24 Date of Service: 02/15/24 Chief Complaint: Chest Pain. HPI Narrative GIANFRANCO GUADARRAMA, is a 63 M with a past medical history of essential hypertension, hyperlipidemia, obesity; with BMI of 31.8 this admission, tobacco abuse and OA who presents to [facility] ER complaining of chest pain. Mr. Guadarrama reports his symptoms began approximately two hours prior to arrival he developed chest pain that began at rest watching television. He describes the chest pain as substernal, pressure-like, heaviness, moderate and radiating into his left neck and patient's stating he could hear his heartbeat in his left ear. His symptoms lasted about 30 minutes and he did not feel better after going to lay down so he finally decided to activate EMS and come in for further evaluation and treatment. He goes on to describe severe intermittent headache with coinciding intermittent loss of vision in the right eye within the past month with patient having been sent to an family centered specialist with no obvious acute pathologic changes. He also admits to progressively worsening fatigue over the past several months with intermittent dyspnea on exertion and previous similar episodes like this that were more short-lived over the same timeframe with him deciding not to seek medical attention at that time because his symptoms will resolve spontaneously. He denies related fever, chills, nausea, vomiting, diaphoresis, palpitations, heart racing, recent travel, recent trauma or surgery. In the ER he was noted to have an elevated blood pressure of 191/93 mmHg present on admission consistent with hypertensive urgency complicated by intermittent chest pain and recent amaurosis fugax of the right eye with and unremarkable and nonspecific EKG along with a normal troponin of 14 pg/mL along with normal labs and negative chest x-ray and he was not then admitted to the CDU under observation status for status expected to be less than 48 hours. [facility] Medical History HTN (hypertension) Hypercholesterolemia Home Medications aspirin 81 mg tablet,delayed release 81 mg PO DAILY@0800 02/11/18 [Rx Last Taken Unknown] atorvastatin 20 mg tablet 20 mg PO DAILY 02/15/24 [History Last Taken Unknown] hydrochlorothiazide 25 mg tablet 25 mg PO DAILY 02/15/24 [History Last Taken Unknown] losartan 50 mg tablet 100 mg PO DAILY 02/15/24 [History Last Taken Unknown] metoprolol succinate 50 mg tablet,extended release 24 hr 25 mg PO BID 02/15/24 [History Last Taken Unknown] Allergy/AdvReac Type Severity Reaction Status Date / Time No Known Allergies Allergy Verified 02/15/24 20:56 Social History Smoking Status: Former smoker ROS ROS Narrative Review of systems: General: Patient admits to lethargy and dyspnea on exertion but he denies fever or chills. HENT: Denies headache, denies stuffy nose, denies sore throat EYES: Denies changes in vision or discharge from eyes. Resp: Patient admits to shortness of breath made worse with exertion but denies cough. Cardiac: Patient admits to chest pain as described in HPI. He denies orthopnea, heart racing or palpitations. GI: Denies abdominal pain, denies changes in bowel, denies nausea or vomiting : Denies changes in urination Extremity: Denies swelling Musculoskeletal: Patient denies arthralgias or myalgias. Neuro: Patient denies associated headache, paresthesias or focal neurologic weakness Heme: Denies any bleeding or bruising Skin: Denies rashes Psychiatric: No complaints voiced related to uncontrolled depression or anxiety. Endocrine: No polyuria, polydipsia or polyphagia. The rest of the 14 point ROS was negative except for positives in HPI. Vital Signs Vital Signs Vital Signs: 02/15/24 20:17 02/15/24 20:09 02/15/24 20:55 Temperature 97.8 F 97.8 F Temperature Source Oral Oral Pulse Rate 84 83 Respiratory Rate 22 H 22 H Blood Pressure 177/99 H 177/99 H Blood Pressure Mean 125 125 Pulse Ox 98 98 96 Oxygen Delivery Method Room Air Room Air Room Air 02/15/24 21:00 Temperature Temperature Source Pulse Rate 81 Respiratory Rate 20 H Blood Pressure 155/96 H Blood Pressure Mean 115 Pulse Ox 95 Oxygen Delivery Method Room Air Weight Weight: 197 lb 1.492 oz Body Mass Index (BMI) 31.8 Physical Exam Const alert, oriented x3, no apparent distress, average body habitus and healthy appearing General Appearance: cooperative HEENT normocephalic, head/scalp atraumatic, hearing grossly normal bilaterally and moist oral mucous membranes Eyes PERRL and EOMs intact bilaterally Neck no lymphadenopathy and supple Resp normal respiratory effort, no retractions, no use of accessory muscles and clear to auscultation bilaterally Cardio regular rate and regular rhythm GI normal to inspection, nondistended, normoactive bowel sounds, soft to palpation, non-tender and non-distended Extremity normal to inspection, full ROM and no clubbing, cyanosis or edema Skin Skin Narrative: Patient has no evidence of abscess, rash or jaundice. Neuro oriented x3, CN's II-XII intact bilaterally, moves all extremities and no focal motor deficits Sensorium / Orientation: awake, alert, oriented to person, oriented to place and oriented to time Speech: speech normal Motor Exam: strength 5/5 throughout Psych affect normal Results Medical Records Data Attestation: I reviewed the patient's medical records Lab / Micro Data Attestation: I reviewed the patient's lab results. 02/15/24 20:45 02/15/24 20:45 Labs: Laboratory Results - last 24 hr 02/15/24 20:45: WBC 6.3, RBC 4.56 L, Hgb 13.3, Hct 39.4 L, MCV 86.4, MCH 29.2, MCHC 33.8, RDW Std Deviation 43.7, RDW Coeff of Donaldo 13.8, Plt Count 184, MPV 11.1, Immature Gran % (Auto) 0.300, Neut % (Auto) 56.5, Lymph % (Auto) 27.4, [place] % (Auto) 11.5 H, Eos % (Auto) 3.5, Baso % (Auto) 0.8, Absolute Neuts (auto) 3.6, Absolute Lymphs (auto) 1.74, Nucleated RBC % 0, Sodium 144, Potassium 3.5, Chloride 113 H, Carbon Dioxide 28.0, Anion Gap 3 L, BUN 30 H, Creatinine 0.81, Estim Creat Clear Calc 96.49, Est GFR (MDRD) Af Amer 123, Est GFR (MDRD) Non-Af 102, BUN/Creatinine Ratio 37.1 H, Glucose 122 H, Calcium 9.0, Troponin I High Sens 14 Imaging [facility] Imaging Services [address] [place] [address] CTA Head AND Neck W/ Contrast MR#: [id number] Acct: [id number] Name: GIANFRANCO GUADARRAMA Rep #: [id number] : 1960 M 63 From: Fabricio Poe MD PCP: Dr. Aime Mclean MD Status: ADM ARY Study: CTA Head AND Neck W/ Contrast Date of Exam: 02/15/24 Exam# [id number] Ordering Dr: Belle Mccoy DO ADDENDUM by Dr. Fabricio Poe MD on 02/16/24 at 0056 EXAM: CT ANGIOGRAPHY HEAD AND NECK WITHOUT AND WITH INTRAVENOUS CONTRAST CLINICAL INDICATION: persistant headache wiht amaurosis TECHNIQUE: [place] of Aj/head and neck CT angiography protocol performed without and with intravenous contrast. This CT exam was performed using one or more of the following dose reduction techniques: automated exposure control, adjustment of the mA and/or kV according to patient size, and/or use of iterative reconstruction technique. MIP reconstructed images were created and reviewed. CONTRAST: 100 cc of Isovue-370 IV. RADIATION DOSE: CTDIvol = 26.89 mGy, DLP = 1502.64 mGy-cm COMPARISON: No relevant prior studies available. FINDINGS: HEAD: RIGHT ANTERIOR CEREBRAL ARTERY: Unremarkable. No occlusion or significant stenosis. Anterior communicating artery is present. No aneurysm. RIGHT MIDDLE CEREBRAL ARTERY: Unremarkable. No occlusion or significant stenosis. No aneurysm. RIGHT POSTERIOR CEREBRAL ARTERY: Unremarkable. No occlusion or significant stenosis. No aneurysm. RIGHT INTRACRANIAL INTERNAL CAROTID ARTERY: Mild atherosclerotic changes right intracavernous internal carotid artery without hemodynamic significant stenosis. No dissection or occlusion. RIGHT INTRACRANIAL VERTEBRAL ARTERY: Unremarkable. No significant stenosis. No dissection or occlusion. LEFT ANTERIOR CEREBRAL ARTERY: Unremarkable. No occlusion or significant stenosis. No aneurysm. LEFT MIDDLE CEREBRAL ARTERY: Unremarkable. No occlusion or significant stenosis. No aneurysm. LEFT POSTERIOR CEREBRAL ARTERY: Unremarkable. No occlusion or significant stenosis. No aneurysm. LEFT INTRACRANIAL INTERNAL CAROTID ARTERY: Unremarkable. No significant stenosis. No dissection or occlusion. LEFT INTRACRANIAL VERTEBRAL ARTERY: Unremarkable. No significant stenosis. No dissection or occlusion. BASILAR ARTERY: Unremarkable. No occlusion or significant stenosis. No aneurysm. OTHER VASCULATURE: No vascular malformation. BRAIN AND EXTRA-AXIAL SPACES: Unremarkable. No intra- or extra-axial hemorrhage. No evidence of acute infarct. No intracranial mass or mass effect. There is preservation of the villagomez/white matter interface. Posterior fossa structures are unremarkable. Ventricles are appropriate for age. No hydrocephalus. Basal cisterns are patent. SINUSES: Unremarkable as visualized. Clear. MASTOID AIR CELLS: Unremarkable as visualized. Clear. ORBITS: Visualized globes, extraocular muscles, optic nerves and retrobulbar fat appear unremarkable. NECK: RIGHT COMMON CAROTID ARTERY: Unremarkable. No significant stenosis. No dissection or occlusion. 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 RIGHT EXTERNAL CAROTID ARTERY: Unremarkable. No occlusion. RIGHT EXTRACRANIAL VERTEBRAL ARTERY: Unremarkable. No significant stenosis. No dissection or occlusion. LEFT COMMON CAROTID ARTERY: Unremarkable. No significant stenosis. No dissection or occlusion. LEFT EXTRACRANIAL INTERNAL CAROTID ARTERY: Moderate atherosclerotic disease involving the left carotid bulb with approximately 35% diameter stenosis. No dissection or occlusion. LEFT EXTERNAL CAROTID ARTERY: Unremarkable. No occlusion. LEFT EXTRACRANIAL VERTEBRAL ARTERY: Unremarkable. No significant stenosis. No dissection or occlusion. BRACHIOCEPHALIC AND SUBCLAVIAN ARTERIES: Unremarkable as visualized. No occlusion or significant stenosis. LUNG APICES: Unremarkable as visualized. HEAD and NECK: BONES/JOINTS: Unremarkable. No discrete lytic or blastic abnormalities. SOFT TISSUES: Unremarkable. CAROTID STENOSIS REFERENCE USING NASCET CRITERIA: % ICA stenosis = (1 - narrowest ICA diameter/diameter of distal cervical ICA) x 100. Mild - <50% stenosis. Moderate - 50-69% stenosis. Severe - 70-94% stenosis. Near occlusion - 95-99% stenosis. Occluded - 100% stenosis. 02/16/24 0056 Date cc: Dr. Aime Mclean MD; Dr. Belle Mccoy DO ~* Signed ADDENDUM by Dr. Fabricio Poe MD on 02/16/[address]/CTA Head AND Neck W/ Contrast IMPRESSION: 1. 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 2. Moderate atherosclerotic disease involving the left carotid bulb with approximately 35% diameter stenosis. 3. Mild atherosclerotic changes right intracavernous internal carotid artery without hemodynamic significant stenosis. N.B. : The above Results were Read Back by Fabricio Poe MD to Leo Garcia DO, and understanding confirmed on 02/16/2024 01:04:07 (ET). Electronically Signed: Fabricio Poe MD at 0:56 EDT , 02/16/24 0111 Date cc: Dr. Aime Mclean MD; Dr. Belle Mccoy DO ~* Signed We are attempting to reach an attending provider to discuss findings. An addendum with communication details will be sent when the communication is complete. EXAM: CT ANGIOGRAPHY HEAD AND NECK WITHOUT AND WITH INTRAVENOUS CONTRAST CLINICAL INDICATION: persistant headache wiht amaurosis TECHNIQUE: [place] of Aj/head and neck CT angiography protocol performed without and with intravenous contrast. This CT exam was performed using one or more of the following dose reduction techniques: automated exposure control, adjustment of the mA and/or kV according to patient size, and/or use of iterative reconstruction technique. MIP reconstructed images were created and reviewed. CONTRAST: 100 cc of Isovue-370 IV. RADIATION DOSE: CTDIvol = 26.89 mGy, DLP = 1502.64 mGy-cm COMPARISON: No relevant prior studies available. FINDINGS: HEAD: RIGHT ANTERIOR CEREBRAL ARTERY: Unremarkable. No occlusion or significant stenosis. Anterior communicating artery is present. No aneurysm. RIGHT MIDDLE CEREBRAL ARTERY: Unremarkable. No occlusion or significant stenosis. No aneurysm. RIGHT POSTERIOR CEREBRAL ARTERY: Unremarkable. No occlusion or significant stenosis. No aneurysm. RIGHT INTRACRANIAL INTERNAL CAROTID ARTERY: Mild atherosclerotic changes right intracavernous internal carotid artery without hemodynamic significant stenosis. No dissection or occlusion. RIGHT INTRACRANIAL VERTEBRAL ARTERY: Unremarkable. No significant stenosis. No dissection or occlusion. LEFT ANTERIOR CEREBRAL ARTERY: Unremarkable. No occlusion or significant stenosis. No aneurysm. LEFT MIDDLE CEREBRAL ARTERY: Unremarkable. No occlusion or significant stenosis. No aneurysm. LEFT POSTERIOR CEREBRAL ARTERY: Unremarkable. No occlusion or significant stenosis. No aneurysm. LEFT INTRACRANIAL INTERNAL CAROTID ARTERY: Unremarkable. No significant stenosis. No dissection or occlusion. LEFT INTRACRANIAL VERTEBRAL ARTERY: Unremarkable. No significant stenosis. No dissection or occlusion. BASILAR ARTERY: Unremarkable. No occlusion or significant stenosis. No aneurysm. OTHER VASCULATURE: No vascular malformation. BRAIN AND EXTRA-AXIAL SPACES: Unremarkable. No intra- or extra-axial hemorrhage. No evidence of acute infarct. No intracranial mass or mass effect. There is preservation of the villagomez/white matter interface. Posterior fossa structures are unremarkable. Ventricles are appropriate for age. No hydrocephalus. Basal cisterns are patent. SINUSES: Unremarkable as visualized. Clear. MASTOID AIR CELLS: Unremarkable as visualized. Clear. ORBITS: Visualized globes, extraocular muscles, optic nerves and retrobulbar fat appear unremarkable. NECK: RIGHT COMMON CAROTID ARTERY: Unremarkable. No significant stenosis. No dissection or occlusion. 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 RIGHT EXTERNAL CAROTID ARTERY: Unremarkable. No occlusion. RIGHT EXTRACRANIAL VERTEBRAL ARTERY: Unremarkable. No significant stenosis. No dissection or occlusion. LEFT COMMON CAROTID ARTERY: Unremarkable. No significant stenosis. No dissection or occlusion. LEFT EXTRACRANIAL INTERNAL CAROTID ARTERY: Moderate atherosclerotic disease involving the left carotid bulb with approximately 35% diameter stenosis. No dissection or occlusion. LEFT EXTERNAL CAROTID ARTERY: Unremarkable. No occlusion. LEFT EXTRACRANIAL VERTEBRAL ARTERY: Unremarkable. No significant stenosis. No dissection or occlusion. BRACHIOCEPHALIC AND SUBCLAVIAN ARTERIES: Unremarkable as visualized. No occlusion or significant stenosis. LUNG APICES: Unremarkable as visualized. HEAD and NECK: BONES/JOINTS: Unremarkable. No discrete lytic or blastic abnormalities. SOFT TISSUES: Unremarkable. CAROTID STENOSIS REFERENCE USING NASCET CRITERIA: % ICA stenosis = (1 - narrowest ICA diameter/diameter of distal cervical ICA) x 100. Mild - <50% stenosis. Moderate - 50-69% stenosis. Severe - 70-94% stenosis. Near occlusion - 95-99% stenosis. Occluded - 100% stenosis. CT/CTA Head AND Neck W/ Contrast IMPRESSION: 1. 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 2. Moderate atherosclerotic disease involving the left carotid bulb with approximately 35% diameter stenosis. 3. Mild atherosclerotic changes right intracavernous internal carotid artery without hemodynamic significant stenosis. Electronically Signed: Fabricio Poe MD at 0:56 EDT , CC: Dr. Aime Mclean MD; Dr. Belle Mccoy DO ~ [employer] Specialist: Signed [facility] Imaging Services [address] [place] [id number] CTA Chest W/WO Contrast MR#: [id number] Acct: [id number] Name: GIANFRANCO GUADARRAMA Rep #: [id number] : 1960 M 63 From: Fabricio Poe MD PCP: Dr. Aime Mclean MD Status: ADM ARY Study: CTA Chest W/WO Contrast Date of Exam: 02/16/24 Exam# [id number] Ordering Dr: Adryan Cabrales DO EXAM: CT ANGIOGRAPHY CHEST WITHOUT AND WITH INTRAVENOUS CONTRAST CLINICAL INDICATION: Elevated D-dimer plus chest pain. Evaluate for PE TECHNIQUE: Helically acquired angiography images were obtained of the chest without and with intravenous contrast. This CT exam was performed using one or more of the following dose reduction techniques: automated exposure control, adjustment of the mA and/or kV according to patient size, and/or use of iterative reconstruction technique. MIP reconstructed images were created and reviewed. CONTRAST: 100 cc of Isovue-370 IV. RADIATION DOSE: CTDIvol = 11.74 mGy, DLP = 475.47 mGy-cm COMPARISON: No relevant prior studies available. FINDINGS: PULMONARY ARTERIES: Unremarkable. Normal in caliber. No evidence of pulmonary embolism. AORTA: Unremarkable. Normal in caliber. No evidence of dissection. GRE[place] OF AORTIC ARCH: Unremarkable. Normal in caliber. No evidence of dissection. LUNGS AND PLEURAL SPACES: Unremarkable. No mass. No consolidation or edema. No pleural effusion or thickening. No pneumothorax. HEART: Coronary artery calcifications. Heart size is normal. No pericardial effusion. MEDIASTINUM: Small hiatal hernia. No mediastinal or hilar adenopathy. Esophagus is unremarkable. THYROID: Unremarkable. No thyroid lesions. BONES/JOINTS: Unremarkable. No suspicious lytic or blastic abnormality. KIDNEYS AND URETERS: Partially visualized left nephrolithiasis. CT/CTA Chest W/WO Contrast IMPRESSION: 1. No pulmonary embolism or dissection. 2. No acute cardiopulmonary abnormality. 3. Small hiatal hernia. 4. Partially visualized left nephrolithiasis. 5. Coronary artery disease. Electronically Signed: Fabricio Poe MD at 2:56 EDT , CC: Dr. Aime Mclean MD; Dr. Adryan Cabrales DO ~ [employer] Specialist: Signed Assessment & Plan Assessment/Plan (1) Chest pain: QUALIFIERS: Chest pain type: unspecified Qualified Code(s): R07.9 - Chest pain, unspecified (2) Hypertensive urgency: (3) Amaurosis fugax of right eye: (4) Headache: QUALIFIERS: Headache chronicity pattern: episodic headache Headache type: unspecified Intractability: not intractable Qualified Code(s): R51.9 - Headache, unspecified (5) History of hypercholesterolemia: (6) Nicotine abuse: (7) D-dimer, elevated: PLAN: Plan 1. Chest pain - Admit to CDU under observation status. Serialize troponin. Check echocardiogram to evaluate LVEF. Continue aspirin and as needed sublingual nitroglycerin. Checked D-dimer which was borderline positive but with negative CTA of the chest. Give Tylenol as needed mild to moderate (level 1-5 out of 10) pain or fever. Give morphine IV as needed for severe (level 6-10 out of 10) pain. 2. Hypertensive urgency with blood pressure of 191/93 mmHg present on admission with associated headache and recent amaurosis fugax of the right eye complicating #1 - Continue home medications as previous plus give hydralazine IV every 6 hours as needed for systolic blood pressure greater than 160 mmHg. Checked CTA of the head and neck with stroke protocol to evaluate for possible carotid stenosis and/or evidence of CVA with short segment complete occlusion of the right carotid bulb over a length of approximately ~1.3 cm and moderate atherosclerotic disease involving the left carotid bulb with ~35% diameter stenosis. Finally, we will consult vascular surgeon on-call to see this patient on rounds in the a.m. for further recommendations regarding possible carotid endarterectomy with help appreciated in advance. 3. Obesity; with BMI of 31.8 this admission with progressively worsening fatigue over the past few weeks - Weight loss will be recommended. Also due to patient's ongoing easy fatigability and dyspnea on exertion we will check TSH. 4. Hyperlipidemia - Continue statin and check lipid profile in light of #1. 5. Tobacco abuse - Tobacco cessation will be strongly encouraged with nicotine patch offered to control cravings. 6. Osteoarthritis - Give Tylenol as needed. 7. DVT prophylaxis - Lovenox 40 mg sq daily. Total time: Approximately 85 minutes. Update: Patient underwent CTA of the head and neck with IV contrast which revealed short segment complete occlusion of the right carotid bulb over a length of ~1.3 cm along with moderate atherosclerotic disease along the left carotid bulb with approximately 35% diameter stenosis. Therefore, consultation was placed for vascular surgery to evaluate this patient in the a.m. for further recommendations with help appreciated in advance. Charges/Coding Visit Charges OBSV E&M: 52084 Observ/hosp same date L3
[2024-02-15] MEDS: hydrALAZINE 20 MG/ML Vial 10 MG IV (22:00)
--- NOTE | 2024-02-15 22:06 | CT_ITS ---
We are attempting to reach an attending provider to discuss findings. An addendum with communication details will be sent when the communication is complete. EXAM: CT ANGIOGRAPHY HEAD AND NECK WITHOUT AND WITH INTRAVENOUS CONTRAST CLINICAL INDICATION: persistant headache wiht amaurosis TECHNIQUE: [place] of Aj/head and neck CT angiography protocol performed without and with intravenous contrast. This CT exam was performed using one or more of the following dose reduction techniques: automated exposure control, adjustment of the mA and/or kV according to patient size, and/or use of iterative reconstruction technique. MIP reconstructed images were created and reviewed. CONTRAST: 100 cc of Isovue-370 IV. RADIATION DOSE: CTDIvol = 26.89 mGy, DLP = 1502.64 mGy-cm COMPARISON: No relevant prior studies available. FINDINGS: HEAD: RIGHT ANTERIOR CEREBRAL ARTERY: Unremarkable. No occlusion or significant stenosis. Anterior communicating artery is present. No aneurysm. RIGHT MIDDLE CEREBRAL ARTERY: Unremarkable. No occlusion or significant stenosis. No aneurysm. RIGHT POSTERIOR CEREBRAL ARTERY: Unremarkable. No occlusion or significant stenosis. No aneurysm. RIGHT INTRACRANIAL INTERNAL CAROTID ARTERY: Mild atherosclerotic changes right intracavernous internal carotid artery without hemodynamic significant stenosis. No dissection or occlusion. RIGHT INTRACRANIAL VERTEBRAL ARTERY: Unremarkable. No significant stenosis. No dissection or occlusion. LEFT ANTERIOR CEREBRAL ARTERY: Unremarkable. No occlusion or significant stenosis. No aneurysm. LEFT MIDDLE CEREBRAL ARTERY: Unremarkable. No occlusion or significant stenosis. No aneurysm. LEFT POSTERIOR CEREBRAL ARTERY: Unremarkable. No occlusion or significant stenosis. No aneurysm. LEFT INTRACRANIAL INTERNAL CAROTID ARTERY: Unremarkable. No significant stenosis. No dissection or occlusion. LEFT INTRACRANIAL VERTEBRAL ARTERY: Unremarkable. No significant stenosis. No dissection or occlusion. BASILAR ARTERY: Unremarkable. No occlusion or significant stenosis. No aneurysm. OTHER VASCULATURE: No vascular malformation. BRAIN AND EXTRA-AXIAL SPACES: Unremarkable. No intra- or extra-axial hemorrhage. No evidence of acute infarct. No intracranial mass or mass effect. There is preservation of the villagomez/white matter interface. Posterior fossa structures are unremarkable. Ventricles are appropriate for age. No hydrocephalus. Basal cisterns are patent. SINUSES: Unremarkable as visualized. Clear. MASTOID AIR CELLS: Unremarkable as visualized. Clear. ORBITS: Visualized globes, extraocular muscles, optic nerves and retrobulbar fat appear unremarkable. NECK: RIGHT COMMON CAROTID ARTERY: Unremarkable. No significant stenosis. No dissection or occlusion. 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 RIGHT EXTERNAL CAROTID ARTERY: Unremarkable. No occlusion. RIGHT EXTRACRANIAL VERTEBRAL ARTERY: Unremarkable. No significant stenosis. No dissection or occlusion. LEFT COMMON CAROTID ARTERY: Unremarkable. No significant stenosis. No dissection or occlusion. LEFT EXTRACRANIAL INTERNAL CAROTID ARTERY: Moderate atherosclerotic disease involving the left carotid bulb with approximately 35% diameter stenosis. No dissection or occlusion. LEFT EXTERNAL CAROTID ARTERY: Unremarkable. No occlusion. LEFT EXTRACRANIAL VERTEBRAL ARTERY: Unremarkable. No significant stenosis. No dissection or occlusion. BRACHIOCEPHALIC AND SUBCLAVIAN ARTERIES: Unremarkable as visualized. No occlusion or significant stenosis. LUNG APICES: Unremarkable as visualized. HEAD and NECK: BONES/JOINTS: Unremarkable. No discrete lytic or blastic abnormalities. SOFT TISSUES: Unremarkable. CAROTID STENOSIS REFERENCE USING NASCET CRITERIA: % ICA stenosis = (1 - narrowest ICA diameter/diameter of distal cervical ICA) x 100. Mild - <50% stenosis. Moderate - 50-69% stenosis. Severe - 70-94% stenosis. Near occlusion - 95-99% stenosis. Occluded - 100% stenosis. CT/CTA Head AND Neck W/ Contrast IMPRESSION: 1. 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 2. Moderate atherosclerotic disease involving the left carotid bulb with approximately 35% diameter stenosis. 3. Mild atherosclerotic changes right intracavernous internal carotid artery without hemodynamic significant stenosis. Electronically Signed: Fabricio Poe MD at 0:56 EDT ,
[2024-02-15 22:49] LABS: Reflex Troponin-HS? (from REC) Y
[2024-02-15 23:06] LABS: Troponin-I HS 16 pg/mL (3.0-78.0)
[2024-02-15 23:41] LABS: D-Dimer Quantitative (DVT/PE) 0.52 FEU/ug/m (0.27-0.49)
[2024-02-16] VITALS: BP 173/88; PULSE 71; RESP 18; TEMP 36.2; O2SAT 98
--- NOTE | 2024-02-16 01:24 | EKG12_ITS ---
Test Reason : ADM EKG Blood Pressure : / mmHG Vent. Rate : 072 BPM Atrial Rate : 072 BPM P-R Int : 158 ms QRS Dur : 078 ms QT Int : 386 ms P-R-T Axes : 037 -25 046 degrees QTc Int : 422 ms Sinus rhythm with frequent Premature ventricular complexes Nonspecific ST abnormality Abnormal ECG Confirmed by TAPAN MELENDEZ, KINJAL ([id number]), supervising film or videotape editor XIAO GARY ([id number]) on 02/18/2024 11:26:30 AM Referred By: [email or web address] Confirmed By:KINJAL PHELAN MD
--- NOTE | 2024-02-16 01:25 | ECHOD_ITS ---
Reason For Study: CHEST PAIN Procedure This was a 2D Doppler, Color Flow transthoracic echocardiogram. Exam performed portable in patient room. Left Ventricle Normal LV size. The estimated ejection fraction is 65 %. No evidence for diastolic dysfunction. No regional wall motion abnormalities noted. Right Ventricle Normal RV size. Normal systolic function. Atria Normal left atrium. No doppler evidence for ASD. Mitral Valve There is no mitral valve stenosis. Trivial mitral valve insufficiency. Tricuspid Valve There is no tricuspid stenosis. Trivial tricuspid valve insufficiency. Unable to estimate RV systolic pressure due to insufficient tricuspid regurgitant envelope. Aortic Valve Trisinus/trileaflet aortic valve. There is no aortic stenosis. No aortic valve insufficiency. Pulmonic Valve There is no pulmonic valvular stenosis. Trivial pulmonic valve insufficiency. Great Vessels Normal aortic root. Pericardium/Pleural No pericardial effusion. MMode/2D Measurements & Calculations LVIDd: 4.7 cm IVSd: 1.3 cm LVOT diam: 2.0 cm LVIDs: 2.8 cm LVPWd: 1.1 cm LVOT area: 3.1 cm2 RVDd: 3.0 cm FS: 41.2 % Ao root diam: 4.0 cm LAV(MOD-bp): 44.3 ml LVAd ap4: 24.9 cm2 LAV(MOD-bp) Indexed: 22.5 ml/m2 LVLd ap4: 8.1 cm LAV(MOD-sp2): 43.3 ml EDV(MOD-sp4): 64.5 ml LAV(MOD-sp4): 47.4 ml EDV(sp4-el): 64.7 ml LVAs ap4: 13.7 cm2 LVLs ap4: 7.0 cm ESV(MOD-sp4): 21.5 ml ESV(sp4-el): 22.6 ml EF(MOD-sp4): 66.7 % EF(sp4-el): 65.0 % LVAd ap2: 26.3 cm2 SV(MOD-sp4): 43.0 ml SV(MOD-sp2): 44.5 ml LVLd ap2: 8.5 cm EDV(MOD-sp2): 68.9 ml EDV(sp2-el): 69.4 ml LVAs ap2: 14.1 cm2 LVLs ap2: 7.0 cm ESV(MOD-sp2): 24.4 ml ESV(sp2-el): 24.0 ml EF(MOD-sp2): 64.6 % SV(sp4-el): 42.1 ml LA dimension(2D): 4.0 cm LA A4 area: 17.5 cm2 RA A4 area: 12.0 cm2 TAPSE: 2.6 cm Time Measurements MV dec time: 0.22 sec Doppler Measurements & Calculations MV E max irwin: 56.5 cm/sec Lat Peak E' Irwin: 8.6 cm/sec Med Peak E' Irwin: 9.5 cm/sec MV A max irwin: 74.3 cm/sec E/E' lat: 6.6 E/E' med: 6.0 MV E/A: 0.76 Ao V2 max: 101.5 cm/sec LV V1 max: 113.6 cm/sec MV dec slope: 260.0 cm/sec2 Ao max P.1 mmHg LV V1 max P.2 mmHg Ao V2 mean: 75.5 cm/sec LV V1 mean P.4 mmHg Ao mean P.6 mmHg LV V1 mean: 70.8 cm/sec Ao V2 VTI: 26.3 cm LV V1 VTI: 26.3 cm AV (velocity ratio): 1.0 EMILY(I,D): 3.1 cm2 EMILY(V,D): 3.4 cm2 SV(LVOT): 80.7 ml PA V2 max: 81.3 cm/sec PA max PG (full): 1.4 mmHg ECHO/Echo Complete Interpretation Summary The estimated ejection fraction is 65 %. No evidence for diastolic dysfunction. Trivial mitral valve insufficiency. Ordering Physician: Adryan Cabrales Referring Physician: Aime Mclean MD Performed By: Geovanna Agarwal RDCS
[2024-02-16 01:26] VITALS: BMI 31.3
[2024-02-16 01:33] VITALS: BP 139/95; PULSE 78; RESP 18; TEMP 36.6; O2SAT 99
--- NOTE | 2024-02-16 01:58 | CT_ITS ---
EXAM: CT ANGIOGRAPHY CHEST WITHOUT AND WITH INTRAVENOUS CONTRAST CLINICAL INDICATION: Elevated D-dimer plus chest pain. Evaluate for PE TECHNIQUE: Helically acquired angiography images were obtained of the chest without and with intravenous contrast. This CT exam was performed using one or more of the following dose reduction techniques: automated exposure control, adjustment of the mA and/or kV according to patient size, and/or use of iterative reconstruction technique. MIP reconstructed images were created and reviewed. CONTRAST: 100 cc of Isovue-370 IV. RADIATION DOSE: CTDIvol = 11.74 mGy, DLP = 475.47 mGy-cm COMPARISON: No relevant prior studies available. FINDINGS: PULMONARY ARTERIES: Unremarkable. Normal in caliber. No evidence of pulmonary embolism. AORTA: Unremarkable. Normal in caliber. No evidence of dissection. GREAT VESSELS OF AORTIC ARCH: Unremarkable. Normal in caliber. No evidence of dissection. LUNGS AND PLEURAL SPACES: Unremarkable. No mass. No consolidation or edema. No pleural effusion or thickening. No pneumothorax. HEART: Coronary artery calcifications. Heart size is normal. No pericardial effusion. MEDIASTINUM: Small hiatal hernia. No mediastinal or hilar adenopathy. Esophagus is unremarkable. THYROID: Unremarkable. No thyroid lesions. BONES/JOINTS: Unremarkable. No suspicious lytic or blastic abnormality. KIDNEYS AND URETERS: Partially visualized left nephrolithiasis. CT/CTA Chest W/WO Contrast IMPRESSION: 1. No pulmonary embolism or dissection. 2. No acute cardiopulmonary abnormality. 3. Small hiatal hernia. 4. Partially visualized left nephrolithiasis. 5. Coronary artery disease. Electronically Signed: Fabricio Poe MD at 2:56 EDT ,
[2024-02-16 01:59] VITALS: BP 139/95; PULSE 78
[2024-02-16] MEDS: Metoprolol(XL)Succ 25 MG Tablet PO ×2 (01:59→12:23)
[2024-02-16] MEDS: Acetaminophen 325 MG Tablet 650 MG PO ×2 (02:00→08:28)
[2024-02-16 03:07] LABS: Hemoglobin A1c 5.6 % (3.8-5.6)
[2024-02-16 03:26] LABS: Troponin-I HS 26 pg/mL (3.0-78.0)
[2024-02-16 03:27] LABS: Cholesterol 145 mg/dL (200); High Density Lipoprotein 36 mg/dL; Triglycerides 40 mg/dL; Very Low Density Lipoprotein 8 mg/dL (5-40)
[2024-02-16 05:39] VITALS: BP 126/76; PULSE 61; RESP 16; TEMP 36.7; O2SAT 97
[2024-02-16] MEDS: Losartan Potassium 100 MG Tablet PO (05:40)
[2024-02-16] MEDS: Aspirin E.C. 81 MG Tablet PO (05:40)
[2024-02-16 06:35] LABS: Absolute Lymphocyte Count 1.29 X10^3/uL (0.83-4.51); Absolute Neutrophil Count 4.6 X10^3/uL (2.0-7.7); Basophil# 0.04 X10^3/uL; Basophil% 0.6 % (0-1); Eosinophil# 0.07 X10^3/uL; Eosinophils% 1.1 % (0-5); Hematocrit 38.1 % (40-54); Hemoglobin 12.8 g/dL (13.0-16.5); Lymphocyte # 1.29 X10^3/ul (0.83-4.51); Lymphocyte % 19.8 % (19-41); Mean Corp Hgb Conc 33.6 g/dL (32-36); Mean Corpuscular Hgb 29.2 pg (27.0-32.0); Mean Platelet Vol. 11.7 fl (6.2-12.0); Monocyte# 0.53 X10^3/uL; Monocyte% 8.1 % (0-10); NRBC Flagged by Analyzer 0 % (0-5); Neutrophil # 4.56 X10^3/uL (2.7-7.7); Neutrophil % 70.1 % (47-70); Platelet Count 192 K/mm3 (150-450); RBC Distribution Width CV 13.7 % (11.6-14.6); RBC Distribution Width SD 43.8 fl (35.1-43.9); Red Blood Count 4.38 M/mm3 (4.6-6.2); White Blood Count 6.5 K/mm3 (4.4-11.0)
[2024-02-16 06:51] LABS: Anion Gap 6 (5-15); BUN 23 mg/dL (7-18); BUN/Creat Ratio 33.6 RATIO (10-20); Calcium,Total 8.9 mg/dL (8.5-10.1); Chloride 111 mmol/L (98-107); Creatinine, Serum 0.68 mg/dL (0.70-1.30); EST Glomerular Filtration Rate 123 mL/min (>60); Est Glom Filt Rate - Afr Amer 149 mL/min (>60); Estimated Creatinine Clearance 114.06 ml/min; Glucose 107 mg/dL (74-106); Magnesium 1.7 mg/dL (1.6-2.6); Phosphorus 2.7 mg/dL (2.5-4.9); Potassium 3.7 mmol/L (3.5-5.1); Sodium Level 141 mmol/L (136-145)
[2024-02-16] MEDS: 0.9% Saline Lock 10 ML Syringe IV ×2 (06:58→09:02)
[2024-02-16] MEDS: Magnesium Sulfate 1 GM in Dextrose 5%-Water (100mL Bag) 100 ML IV (06:58)
--- NOTE | 2024-02-16 07:04 | MRI_ITS ---
STUDY: MRI BRAIN WITHOUT CONTRAST REASON FOR EXAM: Male, 63 years old. stroke TECHNIQUE: Standardized multiplanar fat and water weighted pulse sequences were obtained. COMPARISON: None. FINDINGS: There is mild cerebral atrophy with widening of the extra-axial spaces and ventricular dilatation. There are a limited number of small white matter hyperintensities, distributed throughout the deep white matter tracts of the cerebral hemispheres, consistent with mild chronic white matter ischemic changes. There is no evidence for recent intracranial ischemia or other cause of cytotoxic edema on diffusion weighted imaging (DWI). Normal T2* images of the brain without demonstrated susceptibility artifact. There is no demonstrated hemosiderin stain. Normal bilateral basal ganglia. Normal thalami. There is no extra-axial fluid accumulation. Normal flow voids within the major intracranial circulation suggesting patency by spin echo criteria. Normal sella turcica, pituitary gland, infundibular stalk, optic chiasm and hypothalamus. Normal tectal plate and pineal gland. There are chronic white matter ischemic changes of the magdiel. The midbrain and medulla are otherwise normal. Normal cerebellum. Normal basal cisterns. Normal bilateral temporal bones. Normal bilateral internal auditory canals. No demonstrated orbital abnormality, within the constraints of a routine brain study. Normal visualized paranasal sinuses. Normal calvarium and skull base. Normal visualized soft tissue structures. Normal visualized upper cervical spine. MRI/Brain without Contrast IMPRESSION: Involutional changes of the brain, as described above. No acute infarct. Electronically Signed: Nabor Amezcua MD at 13:02 EDT ,
--- NOTE | 2024-02-16 11:45 | STRESSREP ---
Stress Test Report Date: 02/16/2024 Procedure: Pharmacologic stress nuclear imaging study Indications: Chest pain Consent: Per the patient Procedure: The patient underwent pharmacologic (Regadenoson) evaluation with a peak heart rate of 89 beats per minute (57%predicted maximal heart rate) and a peak blood pressure of 134/86 mmHg. The baseline ECG demonstrated normal sinus rhythm, frequent PVCs. EKG during lexiscan infusion revealed no significant ischemic changes. EKG post infusion revealed no significant ischemic changes [There were no cardiac dysrhythmias pretest, during pharmacologic infusion, or recovery]. [There was no complaint of chest discomfort during pharmacologic infusion or recovery]. The examination was discontinued secondary to completion of protocol. Impression: 1. Lexiscan stress test test is negative for Lexiscan infusion induced EKG changes of ischemia. 2. Lexiscan stress test test is negative for Lexiscan infusion induced chest pain. 3. Results of the nuclear portion of the test is as below Myocardial perfusion imaging study: Technique: The patient was injected with 12 millicuries of technetium 99m Cardiolite and subsequently rest SPECT Cardiolite nuclear imaging was obtained in the horizontal long, vertical long, and short axis views. The patient underwent pharmacologic [Regadenoson 0.4mg] evaluation. Please see above for details. The patient was injected with 36 millicuries of technetium 99m Cardiolite and subsequently stress SPECT Cardiolite nuclear imaging was obtained in the horizontal long, vertical long, and short axis views. A gated Cardiolite study at peak stress was obtained. Interpretation: Rest and stress SPECT Cardiolite nuclear imaging status post realignment, normalization, and attenuation correction demonstrate no evidence of significant ischemia or infarction. Gated images reveal no significant regional wall motion abnormalities. The reported LVEF is greater than 70%. Impression: 1. There is no evidence of significant ischemia or infarction. 2. Estimated ejection fraction is greater than 70%. This note was generated with [employer] software. It may contain incorrect words, spelling, and punctuation that were not noted in checking the note before signing.
[2024-02-16 12:17] VITALS: BP 145/81; PULSE 65; RESP 17; TEMP 36.6; O2SAT 98
[2024-02-16 12:23] VITALS: PULSE 71
[2024-02-16] MEDS: hydroCHLOROthiazide 25 MG Tablet PO (12:23)
--- NOTE | 2024-02-16 14:19 | DS.PCM_ITS ---
Providers Date of Admission: 02/15/24 Date of Discharge: 02/16/24 Primary Care Physician: Dr. Aime Mclean MD Reason For Visit: CHEST PAIN Diagnosis Discharge Diagnosis (1) Chest pain: Status: Acute Code(s): R07.9 - Chest pain, unspecified Qualifiers: Chest pain type: unspecified Qualified Code(s): R07.9 - Chest pain, u nspecified (2) Hypertensive urgency: Status: Acute Code(s): I16.0 - Hypertensive urgency (3) Amaurosis fugax of right eye: Status: Acute Code(s): G45.3 - Amaurosis fugax (4) Headache: Status: Acute Code(s): R51.9 - Headache, unspecified Qualifiers: Headache type: unspecified Headache chronicity pattern: episodic headache Intractability: not intractable Qualified Code(s): R51.9 - Headache, unspecified (5) History of hypercholesterolemia: Status: Acute Code(s): Z86.39 - Personal history of other endocrine, nutritional and metabolic disease (6) Nicotine abuse: Status: Chronic Code(s): Z72.0 - Tobacco use (7) D-dimer, elevated: Status: Acute Code(s): R79.89 - Other specified abnormal findings of blood chemistry Medications at Discharge Home Medications aspirin 81 mg tablet,delayed release 81 mg PO DAILY@0800 02/11/18 hydrochlorothiazide 25 mg tablet 25 mg PO DAILY 02/15/24 losartan 50 mg tablet 100 mg PO DAILY 02/15/24 metoprolol succinate 50 mg tablet,extended release 24 hr 25 mg PO BID 02/15/24 atorvastatin 80 mg tablet 80 mg PO QHS #30 tabs 02/16/24 isosorbide mononitrate 60 mg tablet,extended release 24 hr 60 mg PO DAILY #30 tabs 02/16/24 Hospital Course Procedures 2-D Echocardiogram, EKG and - (Chest x-ray/CTA head and neck/CTA chest/MRI brain) Summary of Care Provided Minutes Spent on Discharge: 40 Hospital Course: Mr. Plata is a 63-year-old white male who presented to the emergency department at [facility] on 02/15/2024 with chest pain. He is known history of hypertension, hyperlipidemia, and previous tobacco abuse. He reported that his symptoms began about 2 hours prior to arrival at which time he developed chest pain that occurred while he was watching television. He described it as substernal and pressure-like with heaviness and moderate with radiating into his left neck. He reported he could hear his heartbeat in his left ear which happens intermittently and he feels like this occurs when his blood pressure is higher. He indicated his symptoms lasted about 30 minutes and he did not feel better after going to lie down so he called the squad to bring him in. He also had some severe intermittent headache with coinciding intermittent vision loss in his right eye in the last month. He is having no vision loss at this point and he was referred to an software support specialist without any acute pathological changes noted. He also admitted to progressively worsening fatigue over the past several months with intermittent dyspnea on exertion. Upon presentation his temperature was 97.8, heart rate 84, blood pressure was 177/99, respiratory was 22 and oxygen saturations were 98% on room air. His CBC was unremarkable. His chemistry panel was overall unremarkable. He was slightly hyperglycemic with a blood glucose level of 122 and we did check a hemoglobin A1c which was found to be 5.6. His initial troponin was 14 with a repeat of 16-11/07 troponin of 26. His EKG had no ischemic changes. They did obtain a D-dimer which was slightly elevated 0.62 and a CTA of his chest was performed. This showed no PE or dissection, no acute cardiopulmonary abnormality, small hiatal hernia, partially visualized left nephrolithiasis and coronary artery disease. His chest x-ray had no acute findings. With his headache and his amaurosis few gait previously a CTA of his head neck was performed and did show short segment complete occlusion of the right carotid bulb over a length of approximately 1.3 cm as well as moderate atherosclerotic disease in the left carotid bulb with approximately 35% diameter stenosis and mild atherosclerotic changes in the right intracavernous internal carotid artery without hemodynamic significant stenosis. A stress test was performed and was negative for any inducible ischemia. We obtained an echocardiogram that showed an EF of 65% no significant diastolic dysfunction and trivial mitral valve insufficiency. A TSH was obtained and within normal range. He had no chest pain or shortness of breath while he was getting a stress test. His lipid panel was performed and his LDL is not well-controlled given the above. LDL was noted to be 101 with a goal of less than 70. He was on 20 mg of atorvastatin so we did increase this to 80 mg and suggested a repeat cholesterol panel be obtained in 3 to 6 months. His blood pressure was also not well-controlled consistently greater than 130/80. He was already on HCTZ at maximal dose, losartan 100 mg, metoprolol 25 mg p.o. twice daily with heart rates in the 60s to 70s so we decided to add isosorbide mononitrate 60 mg daily and I have advised him to follow-up with his primary care physician within the next week to have a blood pressure assessment and hospital follow-up to see if he is better controlled with the addition of the isosorbide mononitrate. He was already taking aspirin 81 mg daily and this is to be continued. With the significant carotid artery stenosis found on the CTA of his head and neck we have asked him to follow-up with Dr. Gutierres in the outpatient setting and information was given to make an appointment to see him at first availability. With his ongoing fatigue I do question whether or not he may have some obstructive sleep apnea he is obese with a BMI of 31.3 and does have a shorter thicker neck with a Mallampati of 3. I have advised him to follow-up with the pulmonary office to obtain a referral for a sleep study to rule this out as a contributing factor. We did discuss that having an area of stress test is not 100% confirmation that he does not have any coronary issues and if he has any recurrent symptoms he needs to return to the hospital to be considered for cardiac catheterization. Prescriptions for his isosorbide mononitrate and his higher dose of atorvastatin were sent to local pharmacy and he was able to be discharged home in stable condition on 02/16/2024. Discharge diagnoses: Chest pain Carotid artery stenosis Uncontrolled hypertension Hyperlipidemia Fatigue Possible obstructive sleep apnea History of tobacco abuse Obesity Physical Exam Const alert, oriented x3, no apparent distress, no limitations, healthy appearing and well nourished; Negative for average body habitus Constitutional Narrative: Obese, upper middle-aged, white male, sitting up in bed watching television, family at bedside, appears comfortable and nontoxic General Appearance: cooperative, comfortable, well kempt and well developed Orientation / Consciousness: awake, oriented to person, oriented to place and oriented to time Exam Limitations: no limitations Nutritional Appearance: obese HEENT normocephalic, head/scalp atraumatic, hearing grossly normal bilaterally and moist oral mucous membranes HEENT Narrative: Mallampati 3, no thrush Eyes PERRL, EOMs intact bilaterally and conjunctivae normal Eyes Narrative: No scleral icterus Neck no lymphadenopathy, supple and no carotid bruits Neck Narrative: Trachea midline, no thyroid enlargement Resp normal respiratory effort, no retractions, no use of accessory muscles and clear to auscultation bilaterally Resp Narrative: Diffusely diminished but clear Auscultation: Negative for rales, rhonchi or wheezes Cardio regular rate, regular rhythm, S1 normal heart sound, S2 normal heart sound, no murmurs, no rub, no gallops and no clicks GI normal to inspection, nondistended, normoactive bowel sounds, soft to palpation and non-tender Extremity no clubbing, cyanosis or edema Extremity Narrative: Pedal pulses are 2+, radial pulses are 2+ Skin no rashes or lesions noted, no wounds, skin turgor normal and no jaundice Neuro oriented x3, CN's II-XII intact bilaterally, moves all extremities and no focal motor deficits Speech: speech normal Psych affect normal Psych Narrative: Very pleasant, interacts appropriately Weight / BMI Weight Weight: 88 kg Body Mass Index (BMI) 31.3 ABG / Lab / Microbiology Data 02/16/24 03:00 02/16/24 03:00 Laboratory: Laboratory Results - last 24 hr 02/15/24 20:45: WBC 6.3, RBC 4.56 L, Hgb 13.3, Hct 39.4 L, MCV 86.4, MCH 29.2, M CHC 33.8, RDW Std Deviation 43.7, RDW Coeff of Donaldo 13.8, Plt Count 184, MPV 11.1, Immature Gran % (Auto) 0.300, Neut % (Auto) 56.5, Lymph % (Auto) 27.4, [place] % (Auto) 11.5 H, Eos % (Auto) 3.5, Baso % (Auto) 0.8, Absolute Neuts (auto) 3.6, Absolute Lymphs (auto) 1.74, Nucleated RBC % 0, Sodium 144, Potassium 3.5, Chloride 113 H, Carbon Dioxide 28.0, Anion Gap 3 L, BUN 30 H, Creatinine 0.81, Estim Creat Clear Calc 96.49, Est GFR (MDRD) Af Amer 123, Est GFR (MDRD) Non-Af 102, BUN/Creatinine Ratio 37.1 H, Glucose 122 H, Hemoglobin A1c 5.6, Calcium 9.0, Troponin I High Sens 14 02/15/24 22:50: Troponin I High Sens 16 02/15/24 23:15: D-Dimer Quant (PE/DVT) 0.52 H* 02/16/24 03:00: WBC 6.5, RBC 4.38 L, Hgb 12.8 L, Hct 38.1 L, MCV 87.0, MCH 29.2, MCHC 33.6, RDW Std Deviation 43.8, RDW Coeff of Donaldo 13.7, Plt Count 192, MPV 11.7, Immature Gran % (Auto) 0.300, Neut % (Auto) 70.1 H, Lymph % (Auto) 19.8, [place] % (Auto) 8.1, Eos % (Auto) 1.1, Baso % (Auto) 0.6, Absolute Neuts (auto) 4.6, Absolute Lymphs (auto) 1.29, Nucleated RBC % 0, Sodium 141, Potassium 3.7, Chloride 111 H, Carbon Dioxide 24.0, Anion Gap 6, BUN 23 H, Creatinine 0.68 L, Estim Creat Clear Calc 114.06, Est GFR (MDRD) Af Amer 149, Est GFR (MDRD) Non-Af 123, BUN/Creatinine Ratio 33.6 H, Glucose 107 H, Calcium 8.9, Phosphorus 2.7, Magnesium 1.7, Troponin I High Sens 26, Triglycerides 40, Cholesterol 145, LDL Cholesterol 101, VLDL Cholesterol 8, HDL Cholesterol 36 L Radiography Diagnostic Testing: Radiology Impression Chest X-Ray 02/15/24 20:42 IMPRESSION: Normal x-ray examination of the chest. Electronically Signed: Nabor Amezcua MD at 21:38 EDT , Head/Neck CTA 02/15/24 22:06 IMPRESSION: 1. 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 2. Moderate atherosclerotic disease involving the left carotid bulb with approximately 35% diameter stenosis. 3. Mild atherosclerotic changes right intracavernous internal carotid artery without hemodynamic significant stenosis. Electronically Signed: Fabricio Poe MD at 0:56 EDT , ADDENDUM: 02/16/24 0111 IMPRESSION: 1. 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 2. Moderate atherosclerotic disease involving the left carotid bulb with approximately 35% diameter stenosis. 3. Mild atherosclerotic changes right intracavernous internal carotid artery without hemodynamic significant stenosis. N.B. : The above Results were Read Back by Fabricio Poe MD to Leo Garcia DO, and understanding confirmed on 02/16/2024 01:04:07 (ET). Electronically Signed: Fabricio Poe MD at 0:56 EDT , Echocardiogram 02/16/24 01:25 Interpretation Summary The estimated ejection fraction is 65 %. No evidence for diastolic dysfunction. Trivial mitral valve insufficiency. Ordering Physician: Adryan Cabrales Referring Physician: Aime Mclean MD Performed By: Geovanna Agawral, CS Chest CTA 02/16/24 01:58 IMPRESSION: 1. No pulmonary embolism or dissection. 2. No acute cardiopulmonary abnormality. 3. Small hiatal hernia. 4. Partially visualized left nephrolithiasis. 5. Coronary artery disease. Electronically Signed: Fabricio Poe MD at 2:56 EDT , Brain MRI 02/16/24 07:04 IMPRESSION: Involutional changes of the brain, as described above. No acute infarct. Electronically Signed: Nabor Amezcua MD at 13:02 EDT , D/C Instructions Discharge Diet: Low fat / Low cholesterol Discharge Activity: Return to Normal Activity Return to work on: 02/18/24 Meaningful Use Info Meaningful Use Diagnoses (Choose all that apply): None applicable Discharge Plan Admission Admit Date/Time: 02/15/24 21:35 Primary Reason for Your Visit: Chest pain Attending Provider: Leeann Tiwari Primary Care Provider: Aime Mclean Consulting Providers: Adryan Cabrales Instructions Additional Instructions / Restrictions: 1. Your LDL goal which is your bad cholesterol is less than 70. We found it to be 101 so we will increase your atorvastatin from 20 mg to 80 mg. You will need a repeat cholesterol panel in 3 to 6 months 2. Your blood pressure goal is less than 130/80 and years was consistently elevated. We will continue what you currently are on and add isosorbide mononitrate 60 mg daily. You will need to have your blood pressure checked by y our primary care physician to ensure that your blood pressure is at goal. If not you may need changes in your blood pressure. 3. Your stress test, echocardiogram and MRI were unremarkable. You are still having fatigue so we did check a thyroid study and your thyroid appears to be functioning well. I would suggest you get a study for sleep apnea as this can contribute to significant fatigue during the day. Please call to the pulmonary office below to get scheduled for a sleep study. 4. As per our discussion prior to your discharge, a negative stress test is not 100% proof that there is no issue with your heart. If you have reoccurring chest pain please represent to the emergency department as you may need to be considered for cardiac catheterization. Discharge Orders/Prescriptions Prescriptions: New atorvastatin 80 mg tablet 80 mg PO QHS Qty: 30 2RF isosorbide mononitrate 60 mg tablet extended release 24 hr 60 mg PO DAILY Qty: 30 2RF Continued aspirin 81 MG tablet 81 mg PO DAILY@0800 0RF losartan 50 MG tablet 100 mg PO DAILY Patient Comments: blood pressure metoprolol succinate 50 MG tablet extended release 24 hr 25 mg PO BID hydrochlorothiazide 25 mg tablet 25 mg PO DAILY Discontinued atorvastatin 20 mg tablet 20 mg PO DAILY Referrals / Follow Up: Aime Mclean MD [Primary Care Provider] - Within 1 Week Anant Gutierres MD [Med Staff - Active Staff] - See Referral Note (Please call office to schedule an appointment to be seen at Dr. Gutierres's first availability for the blockages in your carotid arteries) Kisha Loyd NP, PRESS CATCHER-C [Med Staff - Adv Practice Prof] - See Referral Note (Please call to get it set up for a sleep study as soon as they can get you in to be evaluated as this may be the reason for your fatigue) Disposition Disposition (needs filled in before D/C Order can be placed): Home, Self Care Charges/Coding Visit Charges Inpatient E&M: 52722 Disch Hosp >30min
== END 2024-02-16 14:29 | disposition home or self-care (01) ==
LOC: ED 21:18 → PCU 21:52
PROVIDERS: Admitting Provider Internal Medicine; Emergency Provider Emergency Medicine; PCP Family Medicine; Visit Provider Internal Medicine
DX: R07.89 Other chest pain (principal); I65.23 Occlusion and stenosis of bilateral carotid arteries; Z68.31 Body mass index [BMI] 31.0-31.9, adult; E78.00 Pure hypercholesterolemia, unspecified; I49.3 Ventricular premature depolarization; I16.0 Hypertensive urgency; I10 Essential (primary) hypertension; Z79.82 Long term (current) use of aspirin; R79.9 Abnormal finding of blood chemistry, unspecified; R51.9 Headache, unspecified; I25.10 Atherosclerotic heart disease of native coronary artery without angina pectoris; E66.9 Obesity, unspecified; R53.83 Other fatigue; Z87.891 Personal history of nicotine dependence; Z79.899 Other long term (current) drug therapy; G45.3 Amaurosis fugax
CPT/HCPCS: 36415; 70496; 70498; 70551; 71045; 71275; 78452; 80048; 80061; 83036; 83735; 84100; 84484; 85025; 85379; 93005; 93017; 93306; 96361; 96365; 96366; 96375; 99221; 99284; A9500; J7030; Q9967; A4216; G0378; J2785

== ENCOUNTER → 2024-03-27 | Outpatient (CLI) | payer BC, SELFPAY ==
--- NOTE | 2024-03-27 12:52 | CDU_ITS ---
Reason For Study: R ICA occlusion by CTA Rt. Velocities/BP Lt. Velocities/BP Prox CCA 56.0/10.7 cm/sec. Prox CCA 115.6/29.8 cm/sec. Mid CCA 68.3/16.3 cm/sec. Mid CCA 88.8/24.9 cm/sec. Dist CCA 57.0/13.5 cm/sec. Dist CCA 81.4/24.9 cm/sec. Prox ICA 260.1/56.1 cm/sec. Prox ICA 187.2/57.7 cm/sec. Mid ICA 414.1/186.9 cm/sec. Mid ICA 165.3/57.7 cm/sec. Dist ICA 103.8/35.8 cm/sec. Dist ICA 141.2/40.2 cm/sec. Rt. ICA/CCA = 6.1. Lt. ICA/CCA = 2.1. Prox ECA 343.6/30.1 cm/sec. Prox ECA 130.2/20.6 cm/sec. Rt. Vert. 70.4/17.6 cm/sec. Lt. Vert. 113.8/27.9 cm/sec. Right Extracranial There is homogeneous, smooth atherosclerotic plaque noted in the right common carotid artery. There is heterogeneous, irregular atherosclerotic plaque noted in the right internal carotid artery. There is homogeneous, smooth atherosclerotic plaque noted in the right external carotid artery. Antegrade flow is noted in the right vertebral artery. Left Extracranial There is homogeneous, smooth atherosclerotic plaque noted in the left common carotid artery. There is heterogeneous, irregular atherosclerotic plaque noted in the left internal carotid artery. There is heterogeneous, irregular atherosclerotic plaque noted in the left external carotid artery. Antegrade flow is noted in the left vertebral artery. Procedure Carotid Duplex 85056. This is a Carotid Duplex examination using B-mode, color flow and specral Doppler. The exam was diagnostic. Exam performed in department. VL/Carotid Duplex Ultrasound Interpretation Summary Severe (>70%) stenosis right extracranial internal carotid. Moderate (50-69%) stenosis left extracranial internal carotid. Patent and antegrade vertebrals bilaterally. Ordering Physician: Justyna Clark Referring Physician: Justyna Clark Performed By: Jcarlos Rojo, ABBIET
== END | disposition home or self-care (01) ==
LOC: CVS 12:50
PROVIDERS: PCP Family Medicine; Referring Provider Physician Assistant; Visit Provider Physician Assistant
DX: I65.23 Occlusion and stenosis of bilateral carotid arteries (principal)
CPT/HCPCS: 93880

== ENCOUNTER 2024-04-08 09:24 | Inpatient (IN) | payer MEDICARE, BC, SELFPAY ==
[2024-04-02 17:03] LABS: Hematocrit 40.5 % (40-54); Hemoglobin 13.4 g/dL (13.0-16.5); Mean Corp Hgb Conc 33.1 g/dL (32-36); Mean Corpuscular Hgb 29.1 pg (27.0-32.0); Mean Corpuscular Volume 87.9 fL (80-94); Mean Platelet Vol. 11.2 fl (6.2-12.0); Platelet Count 197 K/mm3 (150-450); RBC Distribution Width CV 13.5 % (11.6-14.6); RBC Distribution Width SD 43.7 fl (35.1-43.9); Red Blood Count 4.61 M/mm3 (4.6-6.2); White Blood Count 5.7 K/mm3 (4.4-11.0)
[2024-04-02 17:30] LABS: Anion Gap 3 (5-15); BUN 25 mg/dL (7-18); BUN/Creat Ratio 32.4 RATIO (10-20); Chloride 110 mmol/L (98-107); Creatinine, Serum 0.77 mg/dL (0.70-1.30); EST Glomerular Filtration Rate 108 mL/min (>60); Est Glom Filt Rate - Afr Amer 130 mL/min (>60); Glucose 91 mg/dL (74-106); Potassium 3.7 mmol/L (3.5-5.1); Sodium Level 140 mmol/L (136-145)
[2024-04-08] VITALS (24 sets, daily range): BP systolic 75–129; BP diastolic 41–94; PULSE 59–86; RESP 13–26; TEMP 36.1–36.8; O2SAT 92–98; BMI 29.5; BMI 29.4
[2024-04-08] MEDS: Lactated Ringers 1,000 ML 15 ML IV ×2 (09:53→14:05)
--- NOTE | 2024-04-08 10:50 | PCM.HP.BLA ---
History and Physical Allergies No Known Allergies Allergy (Verified 04/02/24 14:53) FORMERLY [facility] Medical History Amaurosis fugax of right eye History of hypercholesterolemia Hypercholesterolemia Nicotine abuse HTN (hypertension) Surgical History History of placement of ear tubes (~2008) Family History Other CAD (coronary artery disease) Diabetes Social History Smoking Status: Former smoker Tobacco: How many years used: 30 HPI HPI HPI: GIANFRANCO GUADARRAMA (ROD), is a 63 M who presents to the office today for follow up of right carotid that was initially thought to be occluded on CT scan. Imaging was obtained while admitted for unrelated issues due to some recent right eye temporary vision loss episodes over the prior months. He was seen in our office after DC and duplex was obtained to confirm that vessel is occluded and to get baseline for contralateral side. Duplex revealed that vessel was in fact patent and had severe stenosis with PSV 414 cm/sec and EDV 186 cm/sec. He had initially been on ASA daily, plavix has since been initiated. He denies any recurrent visual episodes. He is here to discuss surgical options. ROS General General: Yes fatigue; No weight change, appetite, colon cancer, breast cancer or weakness HEENT HEENT: No difficulty swallowing, eye injury, eye surgery, swollen glands or hoarseness Endo Endocrine: No thyroid disease, diabetes mellitus, thyroid cancer, Hair loss, heat intolerance or cold intolerance Skin Skin: No rash or changing moles Musc Musculoskeletal: No back problems, arthritis, rheumatoid arthritis, gout or joint pain Cardio Cardiovascular: No murmur, pacemaker, heart disease, atrial fibrillation, high blood pressure, heart attack, heart stent, palpitations, shortness of breat with exertion or chest pain Psych Psychiatric: No depression, anxiety or hearing voices Resp Respiratory: Yes shortness of breath, No sleep apnea, No cough, No COPD, No asthma, No emphysema and No wheezing Gastro Gastrointestinal: No abdominal pain, No nausea or vomiting, No diarrhea, No constipation, No blood in stool, No acid reflux, No hemorrhoids, No ulcers, No gallbladder problem and No black,tarry stools Osvaldo Hematologic: Yes blood thinners, No blood disorders, No bleeding, No anemia and No blood clots Neuro Neurologic: No system reviewed and no additional complaints, except as documented, No as per HPI, No abnormal gait, No abnormal hearing, No abnormal movements, No abnormal speech, No behavioral changes, Yes burning sensations, No confusion, No convulsions, Yes disequilibrium, Yes dizziness, No localized weakness, No frequent falls, Yes headache(s), No lack of coordination, No loss of vision, No memory loss, Yes numbness, No other visual disturbances, Yes radicular pain, No restless legs, No sensory deficit, No syncope, Yes tingling, No tremor(s), No weakness and No other Exam Const General: cooperative, healthy appearing, comfortable, no acute distress and well developed Nutritional Appearance: well nourished Orientation: alert, awake and oriented x3 HENMT Head: normocephalic and atraumatic Ears: hearing grossly normal bilaterally Nose: external nose normal Eyes General: appearance normal, both eyes and all related structures EOM: EOM intact bilaterally Neck Neck: normal visual inspection, full ROM, no lymphadenopathy and trachea midline Thyroid: thyroid normal Lymphatic: no lymphadenopathy noted Resp Effort & Inspection: normal respiratory effort, able to speak in complete sentences, symmetric chest movement, no audible wheezes, not labored, no stridor and no use of accessory muscles Cardio Rate: regular rate Rhythm: regular rhythm Skin General: no rashes or lesions noted and no erythema Wounds: no wounds Neuro Cranial Nerves: CN's II-XI intact bilaterally and EOM intact bilaterally Speech: speech normal Gait: normal gait Motor: strength 5/5 throughout Sensory Exam: no sensory deficits noted Psych Appearance: grossly normal and well kempt Mental Status: mental status grossly normal Mood: congruent mood Speech and Movement: speech and movement normal Thought Content: normal Judgment: judgment good Coding Level of Care Code Off vis,est,level 3 Diagnoses Stenosis of right carotid artery I65.21 Assessment and Plan Assessment and Plan (1) Stenosis of right carotid artery: Status: Chronic Comment: CTA- images reviewed, soft plaque, high grade stenosis vs occlusion Duplex- right >70% stenosis, left 50-69% stenosis Plan: -cont asa/plavix -stress test negative -options discussed, plan for right CEA
[2024-04-08] MEDS: Cefazolin 2 GM in 0.9% Normal Saline (100mL Bag) 100 ML IV (11:20)
--- NOTE | 2024-04-08 11:30 | PLAQ_PTH ---
PATIENT: GIANFRANCO GUADARRAMA LOC: ICU U#:[id number] AGE/SX: 64/M ROOM: [place] [id number] RE04/08/[address]: Dr. Anant Gutierres MD : 1960 BED: 1 DIS: 04/09/2024 SPEC #: [id number] RECD: 04/08/24 14:17 STATUS: KAYLEE RERony #: [id number] PREMA: 04/08/24 11:[address]: Anant Gutierres DEPT: SURGICAL PATHOLOGY RECD BY: Kimi Michel ENTERED: 04/09/24 10:56 SP TYPE: PLAQUE OTHR DR: Dr. Aime Mclean MD Tissues: PLAQUE Procedures: Decalcification bone/plaque Surgery Specimen Level III HEADER OPERATION: Carotid endarterectomy PRE-OP DIAGNOSIS: Stenosis of right carotid artery TISSUE SUBMITTED: Right carotid plaque MICROSCOPIC DIAGNOSIS Right carotid artery plaque, enterectomy: Calcified atheromatous plaque consistent with severe stenosis. AM/mr 04/10/2024 GROSS DESCRIPTION Received in fixative is one container labeled with the patient's name and designated Right carotid plaque. The specimen consists of a Y-shaped veliz-yellow indurated piece of tissue measuring 2.5cm in length and 0.7cm in diameter. The lumen appears to be completely occluded. Also present in the container are multiple fragments of veliz soft tissue measuring in aggregate 1.0 x 0.5 x 0.1cm. The entire specimen is submitted in one cassette. / 04/09/2024 TC:5 CPT:73347,19387
[2024-04-08] MEDS: Heparin Injection (Vial) 5,000 UNIT/ML VIAL 5000 UNIT (11:44)
[2024-04-08] MEDS: Bupivacaine Mpf 0.5% 30 ML VIAL (13:30)
[2024-04-08 13:34] LABS: ACT Activated Clotting Time 122 sec (74-137)
[2024-04-08 13:34] LABS: ACT Activated Clotting Time 293 sec (74-137)
--- NOTE | 2024-04-08 13:36 | OP.PCM_ITS ---
Report of Operation Date of Procedure: 04/08/24 Pre-Operative Diagnosis: right carotid stenosis Post-Operative Diagnosis: same Surgery/Procedure Performed:: right carotid endarterectomy Surgeon: Anant Gutierres Type of Anesthesia: General Drains: 19 Fr RADHA Estimated Blood Loss (mL): 30 Description of Procedure: HPI: Patient is a 64-year-old male who had multiple episodes of right eye vision loss and initially had a CT scan which suggested total occlusion of the internal carotid artery. An arterial duplex was then obtained as an outpatient which revealed that the vessel was in fact patent with a very severe stenosis well over 70%. Patient taken now for a carotid endarterectomy. Description of procedure: Upon obtaining form consent and verification correct patient procedure site patient taken to the operating was placed under general anesthesia. He was then positioned prepped and draped in usual fashion time was performed. Oblique incision was made along the interval to the sternocleidomastoid and electrocautery was dissect down through the subcutaneous tissue to the level of platysma. The platysma was then divided and self-retai yi retractors put in position. Further dissection carried down to the sternocleidomastoid which was mobilized and was anterior border and retracted laterally exposing the carotid sheath. Sharp dissection used dissect free the anterior edge of the jugular vein with the facial vein ligated with silk ties and divided. The jugular vein was retracted laterally exposing the carotid vessels. The vagus nerve was noted to be in anterior position to this was mobilized along its lateral edge and transposed anteriorly after which sharp dissection used to dissect free the common carotid artery proximally. Writing was then replaced vessel loop and return attention to the distal vessels. Sharp section used to dissect along the lateral edge of the carotid vessels to the internal carotid artery beyond the area of palpable and visible plaque. The right ankle was used to place a vessel loop care taken identify and protect the hypoglossal nerve. The patient was then heparinized and allowed to circulate for 3 minutes during which time sharp dissection was used to dissect free the external carotid artery and a right angle used to place a vessel loop. Vessels were then occluded first the internal followed by the common and the external. A longitudinal arteriotomy was created 11 blade on the common carotid artery with silk [place] scissors onto the internal carotid artery beyond the plaque. A 10 [place] Bowie shunt was then placed first distally in the internal carotid artery allowed to backbleed before placing proximally into the common carotid artery. The shunt was interrogated Doppler found to be patent with low resistance signal. We then performed our endarterectomy using a freer elevator with satisfactory endpoint distally on the internal carotid artery and eversion endarterectomy of the external carotid artery. Heparinized saline was then used to flush the the lumen of debris in the distal endpoint tacked with 7-0 Prolene interrupted sutures. A bovine pericardial patch was then brought in the field and secured in position using 6-0 Prolene running fashion. Prior to the suture line the shunt was withdrawn and the vessels back flushed. After completing suture line the internal carotid artery was then allowed to backbleed and the bifurcation then reoccluded at its origin. Clamps were then removed from the external and the common carotid artery allowing 10 heartbeats of antegrade flow to flush into the external before reestablishing antegrade flow into the internal carotid artery. After releasing the clamps satisfactory stasis was noted and the vessels were interrogated with Doppler. The internal carotid arteries. The resistance signal in the external carotid was patent with appropriate signal. Floseal topical hemostatic was applied and 19 [place] jeremiah nnel RADHA placed via separate stab incision. Once satisfactory hemostasis was observed the incision was then closed with 2-0 Vicryl, 3-0 Vicryl, 4 Monocryl and Dermabond for the skin. At the conclusion the case patient was awakened from anesthesia moving extremities command with cranial nerves intact. He was then taken recovery room with anticipated mission intensive care unit for hemodynamic and neurologic monitoring.
[2024-04-08 15:37] LABS: ACT Activated Clotting Time 269 sec (74-137)
[2024-04-08] MEDS: Norepinephrine 8 MG in 0.9% Normal Saline (250mL Bag) 242 ML 9.4 MG CONT INF (16:25)
[2024-04-08] MEDS: 0.45% Normal Saline 1,000 ML 75 ML IV (16:31)
[2024-04-08] MEDS: Acetaminophen 500 MG Tablet 1000 MG PO ×2 (16:33→19:53)
[2024-04-08] MEDS: Cefazolin 1 GM/50 ML BAG IV (19:46)
[2024-04-08] MEDS: Atorvastatin Calcium 80 MG Tablet PO (22:19)
[2024-04-09] VITALS (15 sets, daily range): BP systolic 96–137; BP diastolic 46–82; PULSE 57–67; RESP 12–20; TEMP 36.5–36.6; O2SAT 93–100; BMI 30.7
[2024-04-09] MEDS: Cefazolin 1 GM/50 ML BAG IV (02:59)
[2024-04-09 03:52] LABS: Absolute Lymphocyte Count 0.85 X10^3/uL (0.83-4.51); Hematocrit 33.1 % (40-54); Hemoglobin 11.5 g/dL (13.0-16.5); Lymphocyte # 0.85 X10^3/ul (0.83-4.51); Lymphocyte % 10.1 % (19-41); Mean Corp Hgb Conc 34.7 g/dL (32-36); Mean Corpuscular Hgb 30.1 pg (27.0-32.0); Mean Corpuscular Volume 86.6 fL (80-94); Mean Platelet Vol. 11.2 fl (6.2-12.0); Monocyte# 0.53 X10^3/uL; Monocyte% 6.3 % (0-10); NRBC Flagged by Analyzer 0 % (0-5); Neutrophil # 6.98 X10^3/uL (2.7-7.7); Neutrophil % 83.4 % (47-70); Platelet Count 156 K/mm3 (150-450); RBC Distribution Width CV 13.8 % (11.6-14.6); RBC Distribution Width SD 43.5 fl (35.1-43.9); Red Blood Count 3.82 M/mm3 (4.6-6.2); White Blood Count 8.4 K/mm3 (4.4-11.0)
[2024-04-09] MEDS: 0.45% Normal Saline 1,000 ML 75 ML IV (05:23)
[2024-04-09] MEDS: Acetaminophen 500 MG Tablet 1000 MG PO (05:24)
[2024-04-09] MEDS: Mag Hydrox/Al Hydrox/Simeth 30 ML UDC PO (05:28)
--- NOTE | 2024-04-09 11:05 | CASEMGMT ---
RN CM Face to Face with patient for initial transition planning/care coordination assessment. RN CM introduced self and role at [facility]. Patient lying in bed, alert and oriented. Patient willing to participate in assessment and is able to answer all questions appropriately. Care providers, pharmacy, and demographics verified. PCP: Vinay Specialists: [facility] Benefit: yes Living Will/HPOA: yes, son [place] but patient states he is in the process of updating LNOK: son, significant other Living Arrangements: Patient lives with significant other and son in a single story home with 3 steps and railing to enter the home. Transportation: self, significant other DME/HHC: Patient denies DME in the home. No previous HHC or SNF. Patient wishes to discharge home, denies needs at discharge. Patient states he has no further needs or concerns at this time. CM to follow for discharge planning needs that may arise. Disposition Plan: Patient to discharge home with family support and follow-up plans in place. Kiki SEVERINO, RN, CM
[2024-04-09] MEDS: Aspirin E.C. 81 MG Tablet PO (11:14)
[2024-04-09] MEDS: Clopidogrel Bisulfate 75 MG Tablet PO (11:14)
[2024-04-09] MEDS: hydroCHLOROthiazide 25 MG Tablet PO (11:14)
[2024-04-09] MEDS: Enoxaparin 40 MG/0.4 ML Syringe SC (11:14)
--- NOTE | 2024-04-09 15:10 | PN.SURG_ITS ---
Subjective Subjective Patient was seen resting comfortably in bed today. He has expected mild discomfort at the surgical site. No headache, tongue deviation, hoarseness, difficulty swallowing/eating, vision changes, weakness, sensory deficits. His BP has remained on the lower side for him, but stable today. He has been up walking around the room without issue. He tolerated normal diet today. He has been voiding without difficulty. Objective Data Objective Data Vital Signs: Vital Signs Temp Pulse Resp BP Pulse Ox O2 Del Method 97.8 F 67 16 110/68 96 Room Air 04/09/24 08:00 04/09/24 15:00 04/09/24 13:24 04/09/24 15:00 04/09/24 13:24 04/09/24 13:24 Oxygen Delivery Method Room Air Weight: 190 lb 14.725 oz Body Mass Index (BMI) 30.7 Intake & Output: Intake and Output for Last 24 Hours 04/07/24 04/08/24 04/09/24 23:59 23:59 23:59 Intake Total 1450.63 / 1690.63 1495 / 1495 Output Total 350 / 700 1450 / 1450 Balance 1100.63 / 990.63 45 / 45 Lab / Micro Data 04/09/24 03:40 04/02/24 16:02 Labs: Laboratory Results - last 24 hr 04/08/24 12:38: Activated Clotting Time 269 H 04/09/24 03:40: WBC 8.4, RBC 3.82 L, Hgb 11.5 L, Hct 33.1 L, MCV 86.6, MCH 30.1, MCHC 34.7, RDW Std Deviation 43.5, RDW Coeff of Donaldo 13.8, Plt Count 156, MPV 11.2, Immature Gran % (Auto) 0.200, Neut % (Auto) 83.4 H, Lymph % (Auto) 10.1 L, [place] % (Auto) 6.3, Eos % (Auto) 0.0, Baso % (Auto) 0.0, Absolute Neuts (auto) 7.0, Absolute Lymphs (auto) 0.85, Nucleated RBC % 0 Physical Exam Const alert, oriented x3 and no apparent distress General Appearance: cooperative and comfortable HEENT normocephalic, head/scalp atraumatic, hearing grossly normal bilaterally, external ears normal and external nose normal Eyes EOMs intact bilaterally General Eye: normal appearance of both eyes Neck Neck Narrative: Neck incision site with skin glue intact, no dehiscence or drainage noted. There is moderate swelling, soft to palpation. There is mild ecchymosis. Resp normal respiratory effort, normal air movement, no retractions and no use of accessory muscles Effort and Inspection: able to speak in complete sentences; Negative for labored, actively coughing, retractions or audible wheezes Cardio regular rate and regular rhythm Extremity normal to inspection and no clubbing, cyanosis or edema Skin no rashes or lesions noted Neuro oriented x3, CN's II-XII intact bilaterally, moves all extremities, no focal motor deficits and no sensory deficits noted Speech: speech normal Motor Exam: strength 5/5 throughout Assessment & Plan Assessment/Plan (1) Stenosis of right carotid artery: PLAN: Plan He is s/p R CEA. The RADHA drain was removed without issue. The incision site is satisfactory in appearance. He has been hemodynamically stable. His blood pressures have been lower than his baseline so home BP meds have been held and will continue to hold at d/c with instructions for monitoring and restarting his medications. Will discharge to home this afternoon.
--- NOTE | 2024-04-09 16:49 | PCM.DC.SUM ---
Providers Date of Admission: 04/08/24 Primary Care Physician: Dr. Aime Mclean MD Reason For Visit: Carotid Endarterectomy Medications at Discharge Home Medications aspirin 81 mg tablet,delayed release 81 mg PO DAILY@0800 BLOOD THINNER 02/11/18 hydrochlorothiazide 25 mg tablet 25 mg PO DAILY BP 02/15/24 atorvastatin 80 mg tablet 80 mg PO QHS CHOLESTEROL #30 tabs 02/16/24 isosorbide mononitrate 60 mg tablet,extended release 24 hr 60 mg PO DAILY BP #30 tabs 02/16/24 clopidogrel 75 mg tablet (Plavix) 75 mg PO DAILY BLOOD THINNER #60 tabs 03/27/24 losartan 100 mg tablet 100 mg PO DAILY BP 04/04/24 metoprolol tartrate 25 mg tablet 25 mg PO BID BP 04/04/24 oxycodone 5 mg tablet 5 mg PO Q8H PRN PRN Pain Score 4-10 3 days #9 tabs 04/09/24 Physical Exam Const alert, oriented x3 and no apparent distress General Appearance: cooperative and comfortable HEENT normocephalic, head/scalp atraumatic, hearing grossly normal bilaterally, external ears normal and external nose normal Eyes EOMs intact bilaterally General Eye: normal appearance of both eyes Neck Neck Narrative: Neck incision site with skin glue intact, no dehiscence or drainage noted. There is moderate swelling, soft to palpation. There is mild ecchymosis. Resp normal respiratory effort, normal air movement, no retractions and no use of accessory muscles Effort and Inspection: able to speak in complete sentences; Negative for labored, actively coughing, retractions or audible wheezes Cardio regular rate and regular rhythm Extremity normal to inspection and no clubbing, cyanosis or edema Skin no rashes or lesions noted Neuro oriented x3, CN's II-XII intact bilaterally, moves all extremities, no focal motor deficits and no sensory deficits noted Speech: speech normal Motor Exam: strength 5/5 throughout Weight / BMI Weight Weight: 190 lb 14.725 oz Body Mass Index (BMI) 30.7 ABG / Lab / Microbiology Data 04/09/24 03:40 04/02/24 16:02 Laboratory: Laboratory Results - last 24 hr 04/09/24 03:40: WBC 8.4, RBC 3.82 L, Hgb 11.5 L, Hct 33.1 L, MCV 86.6, MCH 30.1, MCHC 34.7, RDW Std Deviation 43.5, RDW Coeff of Donaldo 13.8, Plt Count 156, MPV 11.2, Immature Gran % (Auto) 0.200, Neut % (Auto) 83.4 H, Lymph % (Auto) 10.1 L, [place] % (Auto) 6.3, Eos % (Auto) 0.0, Baso % (Auto) 0.0, Absolute Neuts (auto) 7.0, Absolute Lymphs (auto) 0.85, Nucleated RBC % 0 D/C Instructions Discharge Diet: No restrictions May shower in (days): 1 Weight Bearing Status: Weight bearing as tolerated Lifting Restricted to (Lbs): 20 Lifting Restrictions: Do not lift greater than 20 pounds for 3 weeks Call your doctor if your incision/area has: Sudden Increased Bleeding, Increased Pain/ Swelling and Foul Smelling Discharge Call your doctor if you observe: Fever of 101 or Higher and Uncontrolled pain Additional Instructions: You have a small bandage over the site from which the surgical drain was removed. You may remove this bandage tomorrow. As long as there is no residual drainage, you may leave this open to air. If you do notice some continued drainage, you may re-cover with a Band-Aid. Your incision site is covered with skin glue which will continue to protect it. The skin glue will peel/flake off on its own over the next few weeks. Please do not pick at it. You may shower tomorrow. It is okay for soap and water to rinse over the incision site, pat to dry. Do not submerge the incision site in water such as to take a bath or go swimming etc. for 3 weeks. Do not lift greater than 20 pounds for 3 weeks. Otherwise, please continue with activity as tolerated. Do not drive until you can turn your head well enough to safely check your blind spots. Your blood pressures have been on the lower side since surgery so your blood pressure medications have been on hold. It is expected that your blood pressure will increase back to what it was before surgery within a couple of days to a week. Please monitor your blood pressure 1-2 times a day at home. If your systolic blood pressure (top number) is greater than 140 then please restart your metoprolol. Then recheck your blood pressure in about 12 hours. If it remains elevated >140, then please restart your losartan. Then if your BP remains elevated, you can restart your hydrochlorothiazide and isosorbide mononitrate. If you have any questions or concerns about this, please call the office at [phone]. I have prescribed a prescription pain medication oxycodone 5 mg tablets to be taken by mouth every 8 hours as needed for pain. Do not take in combination with any other prescription pain medications. You may take this in addition to Tylenol or ibuprofen as allowed. Your follow-up appointment in the office is 04/29/2024. If you need to change this appointment or have any other questions/concerns, please contact the office at [phone]. Please Follow Up With: Justyna Clark PA When: 04/29/24 Meaningful Use Info Meaningful Use Meaningful Use Diagnoses (Choose all that apply): None applicable Ischemic Stroke Statin Dosing Therapy Reference: STATIN DOSE THERAPY REFERENCE: * Patients > 75 years receive moderate or high dose statin therapy. * Patients 75 years or YOUNGER should receive HIGH intensity statin dose unless contraindicated. You will be required to document reason for non-treatment if statin daily dose does not meet guidelines. HIGH DOSE STATIN THERAPY DAILY Atorvastatin > than or = to 40 mg Rosuvastatin > than or = to 20 mg Amlodipine + Atorvastatin > than or = to 2.5/40 mg Ezetimibe + Simvastatin 10/80 mg Simvastatin 80mg Discharge Plan Admission Admit Date/Time: 04/08/24 09:24 Primary Reason for Your Visit: Right carotid endarterectomy Attending Provider: Anant Gutierres Primary Care Provider: Aime Mclean Instructions Additional Instructions / Restrictions: You have a small bandage over the site from which the surgical drain was removed. You may remove this bandage tomorrow. As long as there is no residual drainage, you may leave this open to air. If you do notice some continued drainage, you may re-cover with a Band-Aid. Your incision site is covered with skin glue which will continue to protect it. The skin glue will peel/flake off on its own over the next few weeks. Please do not pick at it. You may shower tomorrow. It is okay for soap and water to rinse over the incision site, pat to dry. Do not submerge the incision site in water such as to take a bath or go swimming etc. for 3 weeks. Do not lift greater than 20 pounds for 3 weeks. Otherwise, please continue with activity as tolerated. Do not drive until you can turn your head well enough to safely check your blind spots. Your blood pressures have been on the lower side since surgery so your blood pressure medications have been on hold. It is expected that your blood pressure will increase back to what it was before surgery within a couple of days to a week. Please monitor your blood pressure 1-2 times a day at home. If your systolic blood pressure (top number) is greater than 140 then please restart your metoprolol. Then recheck your blood pressure in about 12 hours. If it remains elevated >140, then please restart your losartan. Then if your BP remains elevated, you can restart your hydrochlorothiazide and isosorbide mononitrate. If you have any questions or concerns about this, please call the office at [phone]. I have prescribed a prescription pain medication oxycodone 5 mg tablets to be taken by mouth every 8 hours as needed for pain. Do not take in combination with any other prescription pain medications. You may take this in addition to Tylenol or ibuprofen as allowed. Your follow-up appointment in the office is 04/29/2024. If you need to change this appointment or have any other questions/concerns, please contact the office at [phone]. Discharge Orders/Prescriptions Prescriptions: New oxycodone 5 mg Tablet 5 mg PO Q8H PRN PRN (Reason: Pain Score 4-10) 3 Days Qty: 9 0RF Continued aspirin 81 MG tablet 81 mg PO DAILY@0800 0RF atorvastatin 80 mg tablet 80 mg PO QHS Qty: 30 2RF clopidogrel [Plavix] 75 mg tablet 75 mg PO DAILY Qty: 60 0RF Held hydrochlorothiazide 25 mg tablet 25 mg PO DAILY Hold Instructions: Resume on 04/12/24. Hold until systolic blood pressure (top number) is >140 isosorbide mononitrate 60 mg tablet extended release 24 hr 60 mg PO DAILY Qty: 30 2RF Hold Instructions: Resume on 04/12/24. Hold until systolic blood pressure is greater than 140 losartan 100 mg tablet 100 mg PO DAILY Hold Instructions: Resume on 04/11/24. Hold until systolic blood pressure is greater than 140 metoprolol tartrate 25 mg tablet 25 mg PO BID Hold Instructions: Resume on 04/10/24. Hold until systolic blood pressure is greater than 140 Referrals / Follow Up: Aime Mclean MD [Primary Care Provider] - Disposition Disposition (needs filled in before D/C Order can be placed): Home, Self Care
== END 2024-04-09 17:31 | disposition home or self-care (01) | DRG 39 ==
LOC: ACINP 09:49 → ICU 14:38
PROVIDERS: Admitting Provider Surgery Trauma Surgery; PCP Family Medicine; Referring Provider Surgery Trauma Surgery; Visit Provider Surgery Trauma Surgery
PROC: 03CM0ZZ Extirpation of Matter from Right External Carotid Artery, Open Approach (ICD-10-PCS; CPT 35301; principal; 2024-04-08 11:15)
DX: I65.21 Occlusion and stenosis of right carotid artery (principal); E78.00 Pure hypercholesterolemia, unspecified; I10 Essential (primary) hypertension; Z87.891 Personal history of nicotine dependence; Z79.02 Long term (current) use of antithrombotics/antiplatelets; Z79.82 Long term (current) use of aspirin
CPT/HCPCS: 36415; 80048; 85025; 85027; 85347; 86850; 86900; 86901; 88304; 88311; 94668; 97802; 99252; 99406; A4648; J7040; J7050; J7120; G0463; J2405

== ENCOUNTER → 2024-08-12 | Outpatient (CLI) | payer MEDICARE, SELFPAY ==
--- NOTE | 2024-08-12 07:54 | AAAS_ITS ---
Reason For Study: AAA Screening Aorta Measurements Aorta Doppler Measurements Proximal aorta measures2.47 x 2.44cm. in cross- Peak systolic flow velocities within the proximal sectional axis. aorta measure 68.7 cm/sec. Proximal aorta measures2.46cm. in longitudinal Peak systolic flow velocities within the mid aorta axis. measure 86.8 cm/sec. Mid aorta measures1.54 x 1.61cm. in cross- Peak systolic flow velocities within the distal sectional axis. aorta measure 88.6 cm/sec. Mid aorta measures1.55cm. in longitudinal axis. Distal aorta measures1.55 x 1.57cm. in cross- sectional axis. Distal aorta measures1.52cm. in longitudinal axis. Left Iliac Artery Left iliac artery measures 0.97 x 0.92 cm. in the cross-sectional axis. Left iliac artery measures 1.02 cm. in the longitudinal axis. Peak systolic velocity in the left iliac artery measures 101.3 cm/sec. Right Iliac Artery Right iliac artery measures 0.82 x 0.88 cm. in the cross-sectional axis. Right iliac artery measures 0.83 cm. in the longitudinal axis. Peak systolic velocity in the right iliac artery measures 117.6 cm/sec. VL/AAA Screening Interpretation Summary Aorta patent, normal caliber. Bilateral iliac arteries patent, normal caliber. Ordering Physician: Aime Mclean Referring Physician: Aime Mclean Performed By: Shayan Jara RVT
== END | disposition home or self-care (01) ==
LOC: CVS 07:53
PROVIDERS: PCP Family Medicine; Referring Provider Family Medicine; Visit Provider Family Medicine
DX: Z13.6 Encounter for screening for cardiovascular disorders (principal)
CPT/HCPCS: 76706

== ENCOUNTER → 2024-08-18 | Outpatient (CLI) | payer MEDICARE, SELFPAY ==
--- NOTE | 2024-08-18 13:55 | CT_ITS ---
EXAM: CT CHEST, LUNG CANCER SCREENING WITHOUT INTRAVENOUS CONTRAST CLINICAL INDICATION: previous smoker quit 1 year ago. 40 pack years TECHNIQUE: Helically acquired images were obtained of the chest without intravenous contrast using low dose (LDCT) lung cancer screening protocol. This CT exam was performed using one or more of the following dose reduction techniques: automated exposure control, adjustment of the mA and/or kV according to patient size, and/or use of iterative reconstruction technique. COMPARISON: CTA chest, 02/16/2024; lung cancer screening, 12/28/2022 and 07/25/2019. FINDINGS: LUNGS AND PLEURAL SPACES: There are no pulmonary nodules or masses. Minimal right middle lobe and basilar left lower lobe scarring and/or atelectasis. No pleural effusion or thickening. No dense consolidative airspace disease. HEART: Coronary artery calcification. Heart size is normal. No pericardial effusion. MEDIASTINUM: Small hiatal hernia. No mediastinal or hilar adenopathy. Esophagus is unremarkable. THYROID: No significant abnormality. No thyroid lesions. BONES/JOINTS: Degenerative changes in the spine. No suspicious lytic or blastic abnormality. VASCULATURE: Minimal atherosclerosis. LYMPH NODES: No significant abnormality. No enlarged lymph nodes. CT/Low Dose CT Lung Screening IMPRESSION: ACR Lung CT Screening Reporting And Data System (Lung-RADS) score: 1 - Recommend continued annual screening with a low-dose CT (LDCT) in 12 months. Electronically Signed: Leno Worthy DO at 20:06 EDT ,
== END | disposition home or self-care (01) ==
LOC: CT 13:55
PROVIDERS: PCP Family Medicine; Referring Provider Family Medicine; Visit Provider Family Medicine
DX: Z12.2 Encounter for screening for malignant neoplasm of respiratory organs (principal); Z87.891 Personal history of nicotine dependence
CPT/HCPCS: 71271

== ENCOUNTER → 2024-09-09 | Outpatient (CLI) | payer MEDICARE, SELFPAY ==
--- NOTE | 2024-09-09 13:03 | CDU_ITS ---
Reason For Study: S/P Rt CEA Rt. Velocities/BP Lt. Velocities/BP Prox CCA 68.3/16.3 cm/sec. Prox CCA 93.9/22.3 cm/sec. Mid CCA 73/19.2 cm/sec. Mid CCA 83.9/20 cm/sec. Dist CCA 83.4/17.3 cm/sec. Dist CCA 79/21.2 cm/sec. Prox ICA 52.2/19.2 cm/sec. Prox ICA 156.3/44.8 cm/sec. Mid ICA 71.1/25.8 cm/sec. Mid ICA 161.3/42.6 cm/sec. Dist ICA 65.5/21.1 cm/sec. Dist ICA 79.1/22.5 cm/sec. Rt. ICA/CCA = 0.97. Lt. ICA/CCA = 1.92. Prox ECA 135.6/24.1 cm/sec. Prox ECA 128.4/18.8 cm/sec. Rt. Vert. 52.2/17.3 cm/sec. Lt. Vert. 99.2/18.8 cm/sec. Right Extracranial There is homogeneous, smooth atherosclerotic plaque noted in the right common carotid artery. There is heterogeneous, irregular atherosclerotic plaque noted in the right internal carotid artery. There is heterogeneous, irregular atherosclerotic plaque noted in the right external carotid artery. Antegrade flow is noted in the right vertebral artery. Left Extracranial There is intimal thickening but no significant atherosclerotic plaque noted in the left common carotid artery. There is heterogeneous, irregular atherosclerotic plaque noted in the left internal carotid artery. There is heterogeneous, irregular atherosclerotic plaque noted in the left external carotid artery. Antegrade flow is noted in the left vertebral artery. Procedure Carotid Duplex 50027. This is a Carotid Duplex examination using B-mode, color flow and specral Doppler. Exam performed in department. VL/Carotid Duplex Ultrasound Interpretation Summary Mild (<50%) stenosis right extracranial internal carotid. Moderate (50-69%) stenosis left extracranial internal carotid. Patent and antegrade vertebrals bilaterally. Ordering Physician: Justyna Clark Referring Physician: Aime Mclean MD Performed By: Kiki Aleman RVT
== END | disposition home or self-care (01) ==
LOC: CVS 13:03
PROVIDERS: PCP Family Medicine; Referring Provider Physician Assistant; Visit Provider Physician Assistant
DX: Z48.812 Encounter for surgical aftercare following surgery on the circulatory system (principal); I65.21 Occlusion and stenosis of right carotid artery
CPT/HCPCS: 93880

== ENCOUNTER → 2025-03-18 | Outpatient (CLI) | payer MEDICARE, SELFPAY ==
--- NOTE | 2025-03-18 08:51 | CDU_ITS ---
Reason For Study Reason For Study: HX Rt ICA CEA Rt. Velocities/BP Lt. Velocities/BP Prox CCA 61.3/22.0 cm/sec. Prox CCA 83.4/17.1 cm/sec. Mid CCA 82.1/24.4 cm/sec. Mid CCA 75.7/20.8 cm/sec. Dist CCA 83.4/25.7 cm/sec. Dist CCA 69.1/21.9 cm/sec. Prox ICA 63.6/26.3 cm/sec. Prox ICA 124.9/41.5 cm/sec. Mid ICA 76.5/30.3 cm/sec. Mid ICA 124.9/34.9 cm/sec. Dist ICA 71.0/30.3 cm/sec. Dist ICA 69.1/28.5 cm/sec. Rt. ICA/CCA = 0.9. Lt. ICA/CCA = 1.6. Prox ECA 98.6/12.9 cm/sec. Prox ECA 133.7/23.9 cm/sec. Rt. Vert. 50.2/15.8 cm/sec. Lt. Vert. 86.7/27.8 cm/sec. Right Extracranial There is heterogeneous, smooth atherosclerotic plaque noted in the right common carotid artery. There is heterogeneous, smooth atherosclerotic plaque noted in the right internal carotid artery. HX CEA. There is intimal thickening but no significant atherosclerotic plaque noted in the right external carotid artery. Antegrade flow is noted in the right vertebral artery. Left Extracranial There is heterogeneous, smooth atherosclerotic plaque noted in the left common carotid artery. There is heterogeneous, irregular atherosclerotic plaque noted in the left internal carotid artery. There is heterogeneous, irregular atherosclerotic plaque noted in the left external carotid artery. Antegrade flow is noted in the left vertebral artery. Procedure Carotid Duplex [id number]. This is a Carotid Duplex examination using B-mode, color flow and specral Doppler. The exam was diagnostic. Exam performed in department. VL/Carotid Duplex Ultrasound Interpretation Summary Mild (<50%) stenosis right extracranial internal carotid. Mild (<50%) stenosis left extracranial internal carotid. Patent and antegrade vertebrals bilaterally. Ordering Physician: Justyna Clrak Referring Physician: Aime Mclean Performed By: Shayan Jara RVT
== END | disposition home or self-care (01) ==
LOC: CVS 08:49
PROVIDERS: PCP Family Medicine; Referring Provider Physician Assistant; Visit Provider Physician Assistant
DX: Z48.812 Encounter for surgical aftercare following surgery on the circulatory system (principal)
CPT/HCPCS: 93880

== ENCOUNTER → 2025-08-26 | Outpatient (CLI) | payer MEDICARE, SELFPAY ==
--- OUTSIDE RECORDS SUMMARY | 2025-08-26 15:55 | XMS RPT_ITS | CCD ---
Author Organization [facility] Care Team Providers Care Curing Press Maintainer Name Role Phone Dr. Aime Mclean Primary Care Provider [phone] Dr. Belle Mccoy Emergency Provider [phone] Adryan Cabrales Admit Provider Unavailabl e Dr. Adryan Cabrales Other Provider Unavailabl e Dr. Leeann Tiwari Other Provider Dr. Keven Chamberlain Attending Provider [phone] Dr. Leeann Tiwari Attending Provider Dr. Aime Mclean MD Primary Care Provider Justyna Hutton Attending Provider Amado Huttonison Referring Provider [phone] Anant Gutierres MD Attending Provider Dr. Aime Mclean MD Referring Provider [phone] Clark, Justyna Referring Unavailable Ranney, Christopher Primary Care Unavailable Clark, Justyna Attending Unavailable Vinay, Christopher Attending Unavailable Ranney, Christopher Referring Unavailable Ranney, Christopher Primary Care Unavailable Anant Gutierres Attending Unavailable Ranney, Christopher Primary Care Unavailable Clark, Justyna Referring Unavailable Shaheedney, Christopher Primary Care Unavailable Anant Gutierres Attending Unavailable Clark, Justyna Referring Unavailable Ranney, Christopher Primary Care Unavailable Nenita, Anant Attending Unavailable Clark, Justyna Attending Unavailable Vinay, Christopher Referring Unavailable Ranney, Christopher Primary Care Unavailable Ranney, Christopher Primary Care Unavailable Ranney, Christopher Referring Unavailable Clark, Justyna Attending Unavailable Ranney, Christopher Attending Unavailable Ranney, Christopher Referring Unavailable Aime Mclean Primary Care Unavailable Justyna Clark Referring Unavailable Aime Mclean Primary Care Unavailable Justyna Clark Attending Unavailable Medications Current Medications Medication Drug Class(es) Dates Sig (Normalized) Sig (Original) aspirin 81 mg delayed release oral tablet (10 sources) Platelet Aggregation Inhibitor, Nonsteroidal Anti-inflammatory Drug Start: 02-11-2018 take 1 tablet by mouth once daily Aspirin 81 MG tablet Active 81 mg PO DAILY@0800 February 11, 2018 12:00am atorvastatin 40 mg oral tablet (8 sources) HMG-CoA Reductase Inhibitor Start: 04-14-2025 take 1 tablet by mouth once daily Atorvastatin (Lipitor) 40 mg tablet Active 40 mg PO daily April 14, 2025 12:00am Start: 02-16-2024 End: 04-14-2025 take 1 tablet by mouth at bedtime Atorvastatin 80 mg tablet Discontinued 80 mg PO AT BEDTIME February 16, 2024 12:00am April 14, 2025 2:13pm Start: 02-15-2024 End: 02-16-2024 take 1 tablet by mouth once daily Atorvastatin 20 mg tablet Discontinued 20 mg PO DAILY February 15, 2024 12:00am February 16, 2024 2:20pm Completed/Discontinued Medications Medication Drug Class(es) Dates Sig (Normalized) Sig (Original) clopidogrel 75 mg oral tablet (2 sources) P2Y12 Platelet Inhibitor Start: End: take 1 tablet by mouth once daily Clopidogrel (Plavix) 75 mg tablet Discontinued 75 mg PO DAILY 60 March 27, 2024 12:00am April 14, 2025 2:13pm hydroCHLOROthiazide 25 mg oral tablet (14 sources) Thiazide Diuretic Start: End: Hydrochlorothiazide 25 mg tablet Discontinued 25 mg PO DAILY February 15, 2024 12:00am April 14, 2025 2:13pm On Hold: Resume on 04/12/24. Hold until systolic blood pressure (top number) is >140 Start: 02-15-2024 take 25 mg by mouth once daily Hydrochlorothiazide Active 25 MG PO DAILY February 15, 2024 12:00am Start: 02-10-2018 End: 02-11-2018 take 1 tablet by mouth once daily Hydrochlorothiazide 25 MG tablet Discontinued 25 mg PO DAILY February 10, 2018 12:00am February 11, 2018 11:28am hydroCHLOROthiazide 25 mg / losartan potassium 100 mg oral tablet (1 source) Thiazide Diuretic, Angiotensin 2 Receptor Leoncio Start: 04-14-2025 Losartan-Hydrochlorothiazide 100-25 mg tablet Discontinued 1 {tbl} PO daily April 14, 2025 12:00am 24 hr isosorbide mononitrate 60 mg extended release oral tablet (3 sources) Nitrate Vasodilator Start: 02-16-2024 End: 04-14-2025 Isosorbide Mononitrate 60 mg tablet extended release 24 hr Discontinued 60 mg PO DAILY February 16, 2024 12:00am April 14, 2025 2:13pm On Hold: Resume on 04/12/24. Hold until systolic blood pressure is greater than 140 Start: 02-16-2024 take 60 mg by mouth once daily Isosorbide Mononitrate Active 60 MG PO DAILY February 16, 2024 12:00am losartan potassium 100 mg oral tablet (16 sources) Angiotensin 2 Receptor Leoncio Start: 04-04-2024 End: 04-14-2025 Losartan 100 mg tablet Discontinued 100 mg PO DAILY April 04, 2024 12:00am April 14, 2025 2:22pm On Hold: Resume on 04/11/24. Hold until systolic blood pressure is greater than 140 Start: 02-15-2024 End: 04-04-2024 take 2 tablets by mouth once daily Losartan 50 MG tablet Discontinued 100 mg PO DAILY February 15, 2024 12:00am April 04, 2024 10:09am Start: 02-15-2024 take 100 mg by mouth once dawna y Losartan Active 100 MG PO DAILY February 15, 2024 12:00am Start: 05-09-2016 End: 02-15-2024 take 1 tablet by mouth once daily Losartan 50 MG tablet Discontinued 50 mg PO DAILY May 09, 2016 12:00am February 15, 2024 8:57pm metoprolol tartrate 25 mg oral tablet (20 sources) beta-Adrenergic Leoncio Start: 04-04-2024 End: 04-14-2025 Metoprolol Tartrate 25 mg tablet Discontinued 25 mg PO TWICE A DAY April 04, 2024 12:00am April 14, 2025 2:14pm On Hold: Resume on 04/10/24. Hold until systolic blood pressure is greater than 140 Start: 02-15-2024 End: 04-04-2024 take 2 tablets by mouth twice daily Metoprolol Succinate 50 MG tablet extended release 24 hr Discontinued 25 mg PO TWICE A DAY February 15, 2024 12:00am April 04, 2024 10:10am Start: 02-15-2024 take 25 mg by mouth twice dawna y Metoprolol Succinate Active 25 MG PO TWICE A DAY February 15, 2024 12:00am Start: 02-11-2018 End: 02-15-2024 take 1 tablet by mouth once daily Metoprolol Succinate 50 MG tablet extended release 24 hr Discontinued 50 mg PO DAILY February 11, 2018 12:00am February 15, 2024 8:57pm Start: 02-10-2018 End: 02-11-2018 take 1 tablet by mouth once daily Metoprolol Succinate (Toprol Xl) 25 MG Tab.Er.24h Discontinued 25 mg PO DAILY February 10, 2018 12:00am February 11, 2018 11:28am oxyCODONE hydrochloride 5 mg oral tablet (2 sources) Opioid Agonist Start: 04-09-2024 End: 04-14-2025 take 1 tablet by mouth every eight hours as needed for pain Oxycodone 5 mg Tablet Discontinued 5 mg PO EVERY 8 HOURS NEEDED as needed for Pain Score 4-10 9 3 April 09, 2024 April 14, 2025 2:14pm Problems Active Problems Problem Classification Problem Date Documented Date Episodic/Chronic Allergic reactions (10 sources) Contact dermatitis due to hydrocarbon; Translations: [Unspecified contact dermatitis due to other agents] 11-13-2019 Episodic Essential hypertension (12 sources) Hypertensive disorder; Translations: [Essential (primary) hypertension] 11-12-2019 Chronic Comment on above: CONTROLLED ON MED Headache; including migraine (6 sources) Headache; Translations: [Headache] 02-15-2024 Episodic Hypertension with complications and secondary hypertension (6 sources) Hypertensive urgency ; Translations: [Hypertensive urgency] 02-15-2024 Chronic Nonspecific chest pain (12 sources) Chest pain; Translations: [Chest pain, unspecified] 11-12-2019 Episodic Occlusion or stenosis of precerebral arteries (5 sources) Left carotid artery stenosis; Translations: [Occlusion and stenosis of left carotid artery] Onset: 04-29-2024 02-28-2024 Chronic Comment on above: CTA 02/15/24 shows L ICA stenosis 55% by NASCET s/p R CEA 04/08/24 Other aftercare (2 sources) Surgical follow-up; Translations: [Encounter for surgical aftercare following surgery on the circulatory system] 04-29-2024 Episodic Other aftercare (1 source) Encounter for surgical aftercare following surgery on the circulatory system; Translations: [Encounter for surgical aftercare following surgery on the circulatory system] Onset: 03-24-2025 Episodic Other nervous system disorders (2 sources) Postoperative pain ; Translations: [Other acute postprocedural pain] 04-09-2024 Episodic Other nutritional; endocrine; and metabolic disorders (4 sources) History of hypercholesterolemia; Translations: [Personal history of other endocrine, nutritional and metabolic disease] 02-15-2024 Episodic Other nutritional; endocrine; and metabolic disorders (2 sources) Personal history of other endocrine, nutritional and metabolic disease; Translations: [Personal history of other endocrine, metabolic, and immunity disorders] 02-15-2024 Episodic Other upper respiratory infections (8 sources) Viral upper respiratory tract infection; Translations: [Acute upper respiratory infection, unspecified] 01-31-2023 Episodic Residual codes; unclassified (10 sources) Harmful pattern of use of nicotine; Translations: [Tobacco use] 11-12-2019 Episodic Comment on above: DENIES Residual codes; unclassified (2 sources) Tobacco use; Translations: [Tobacco use disorder] 02-15-2024 Episodic Transient cerebral ischemia (6 sources) Amaurosis fugax of right eye; Translations: [Amaurosis fugax] 02-15-2024 Chronic Past or Other Problems Problem Classification Problem Date Documented Da te Episodic/Chronic Other screening for suspected conditions (not mental disorders or infectious disease) (6 sources) D-dimer above reference range; Translations: [Other specified abnormal findings of blood chemistry] Onset: 09-04-2024 02-16-2024 Episodic Results Test Name Value Interpretation Reference Range Facility [facility] 04-14-2025 [facility] [address] [place], [place] [address] OFFICE VISIT Date of Service: 04/14/25 MR#: [id number] Acct: [id number] Name: GIANFRANCO PLATA Rep #: [id number] : 1960 Provider: SHAHEEN Bunch Age/Sex: 65/M Location: [facility] Status: Signed Intake Vital Signs 04/09/24 12:16 03/19/25 12:54 04/14/25 14:11 Height 5 ft 6.14 in 5 ft 6.14 in Weight: 184 lb BP 121/78 H Blood Pressure Location Lt brachial Position Sitting Respiration 16 Pulse 84 Pulse Source Monitor Temp 98.4 F Temp Source Temporal Pulse Oximetry (%) 98 Oxygen Delivery Method room air Intake Visit Reasons: 1 Y FU Is patient in pain?: No Allergies No Known Allergies Allergy (Verified 04/14/25 14:12) Medications ???Medication ???Instructions ???Recorded ???Confirmed ???Type aspirin 81 mg tablet,delayed 81 mg PO DAILY@0800 BLOOD THINNER 02/11/18 04/14/25 Rx release atorvastatin 40 mg tablet (Lipitor) 40 mg PO QDAY #90 tabs 04/14/25 04/14/25 Rx losartan 100 1 tab PO QDAY 04/14/25 04/14/25 Hi story mg-hydrochlorothiazide 25 mg tablet Have you fallen in the past year?: No PFSH Medical History Wears glasses Kidney stones Excessive bleeding Back pain Injury of head and neck TIA (transient ischemic attack) History of echocardiogram History of stress test Amaurosis fugax of right eye History of hypercholesterolemia Hypercholesterolemia Nicotine abuse HTN (hypertension) Surgical History Hx of nasal septoplasty Hx of surgical procedure Hx of surgical procedure History of placement of ear tubes ( 2008) Family History Other CAD (coronary artery disease) Diabetes Social History Smoking Status: Former smoker Tobacco: How many years used: 30 HPI HPI HPI: GIANFRANCO PLATA, is a 65 M who presents to the office today for annual follow-up s/p R CEA 04/2024. His surveillance imaging has been satisfactory to this point with most recent duplex demonstrated <50% stenosis of the bilateral ICAs. By CTA in 2023, L ICA stenosis was 55%. He has continued to take ASA 81mg daily. He stopped atorvastatin because he ran out of refills, he did not know to request more. He denies any episodes of focal neurologic symptoms such as unilateral weakness/sensory deficits, facial drooping, dysarthria, monocular vision loss. He reports no significant changes to his medical history over the last year. He has no concerns today. ROS General General: No weight change, appetite, fatigue, colon cancer, breast cancer or weakness HEENT HEENT: No difficulty swallowing, eye injury, eye surgery, swollen glands or hoarseness Endo Endocrine: No thyroid disease, diabetes mellitus, thyroid cancer, Hair loss, heat intolerance or cold intolerance Skin Skin: No rash or changing moles Musc Musculoskeletal: No back problems, arthritis, rheumatoid arthritis, gout or joint pain Cardio Cardiovascular: Yes high blood pressure; No murmur, pacemaker, heart disease, atrial fibrillation, heart attack, heart stent, palpitations, shortness of breath with exertion or chest pain Psych Psychiatric: No depression, anxiety or hearing voices Resp Respiratory: No shortness of breath, No sleep apnea, No cough, No COPD, No asthma, No emphysema and No wheezing Gastro Gastrointestinal: No abdominal pain, No nausea or vomiting, No diarrhea, No constipation, No blood in stool, No acid reflux, No hemorrhoids, No ulcers, No gallbladder problem and No black,tarry stools Osvaldo Hematologic: Yes blood thinners, No blood disorders, No bleeding, No anemia and No blood clots Additional Details: asa Neuro Neurologic: No system reviewed and no additional complaints, except as documented, No as per HPI, No abnormal gait, Yes abnormal hearing, No abnormal movements, No abnormal speech, No behavioral changes, No burning sensations, No confusion, No convulsions, No disequilibrium, No dizziness, No localized weakness, No frequent falls, No headache(s), No lack of coordination, No loss of vision, No memory loss, No numbness, No other visual disturbances, No radicular pain, No restless legs, No sensory deficit, No syncope, No tingling, No tremor(s), No weakness and No other Exam Const General: cooperative, comfortable and no acute distress Orientation: alert, awake and oriented x3 HENMT Head: normal to inspection, normocephalic and atraumatic Ears: hearing grossly normal bilaterally and external ears normal Nose: external nose normal Eyes General: appearance normal, both eyes and all related structures EOM: EOM intact bila (more content not included)... Normal [facility] Carotid Duplex Ultrasoundon 03-18-2025 Carotid Duplex Ultrasound [facility] Cardiovascular Services [address] [place] [address] Carotid Duplex Ultrasound 03/18/25 0855 MR#: [id number] Acct: [id number] Name: GIANFRANCO PLATA Rep #: [id number] : 1960 64 From: Anant Gutierres MD Attending Dr: SHAHEEN Bunch Status: REG CLI Ordering Dr: Justyna Clark Date: 03/18/25 Location: [facility] Sex: M C Admitted: Reason For Study Reason For Study: HX Rt ICA CEA Rt. Velocities/BP Lt. Velocities/BP Prox CCA 61.3/22.0 cm/sec. Prox CCA 83.4/17.1 cm/sec. Mid CCA 82.1/24.4 cm/sec. Mid CCA 75.7/20.8 cm/sec. Dist CCA 83.4/25.7 cm/sec. Dist CCA 69.1/21.9 cm/sec. Prox ICA 63.6/26.3 cm/sec. Prox ICA 124.9/41.5 cm/sec. Mid ICA 76.5/30.3 cm/sec. Mid ICA 124.9/34.9 cm/sec. Dist ICA 71.0/30.3 cm/sec. Dist ICA 69.1/28.5 cm/sec. Rt. ICA/CCA = 0.9. Lt. ICA/CCA = 1.6. Prox ECA 98.6/12.9 cm/sec. Prox ECA 133.7/23.9 cm/sec. Rt. Vert. 50.2/15.8 cm/sec. Lt. Vert. 86.7/27.8 cm/sec. Right Extracranial There is heterogeneous, smooth atherosclerotic plaque noted in the right common carotid artery. There is heterogeneous, smooth atherosclerotic plaque noted in the right internal carotid artery. HX CEA. There is intimal thickening but no significant atherosclerotic plaque noted in the right external carotid artery. Antegrade flow is noted in the right vertebral artery. Left Extracranial There is heterogeneous, smooth atherosclerotic plaque noted in the left common carotid artery. There is heterogeneous, irregular atherosclerotic plaque noted in the left internal carotid artery. There is heterogeneous, irregular atherosclerotic plaque noted in the left external carotid artery. Antegrade flow is noted in the left vertebral artery. Procedure Carotid Duplex [id number]. This is a Carotid Duplex examination using B-mode, color flow and specral Doppler. The exam was diagnostic. Exam performed in department. VL/Carotid Duplex Ultrasound Interpretation Summary Mild (<50%) stenosis right extracranial internal carotid. Mild (<50%) stenosis left extracranial internal carotid. Patent and antegrade vertebrals bilaterally. Ordering Physician: Justyna Clark Referring Physician: Aime Mclean Performed By: Shayan Jara, T 03/18/251826 Date Anant Gutierres MD CC: SHAHEEN Bunch; Dr. Aime Mclean MD Date Dictated: 03/18/25854 Date Transcribed: 03/18/251826 Tree Care Foreman: Signed Normal [facility] Duplex ultrasound of carotid artery reportOrdered By: Anant Gutierres on 03-18-2025 Study report [facility] Cardi[facility] Services [address] [place] [address] Carotid Duplex Ultrasound 03/18/25854 MR#: [id number] Acct: [id number] Name: GIANFRANCO PLATA Rep #:[id number] : 1960 64 From: Anant Toro Attending Dr: SHAHEEN Bunch Stat us: REG CLI Ordering Dr: Justyna Clark Date: Location: [facility] Sex: M C Admitted: Reason For Study Reason For Study: HX Rt ICA CEA Rt. Velocities/BP Lt. Velocities/BP Prox CCA 61.3/22.0 cm/sec. Prox CCA 83.4/17.1 cm/sec. Mid CCA 82.1/24.4 cm/sec. Mid CCA 75.7/20.8 cm/sec. Dist CCA 83.4/25.7 cm/sec. Dist CCA 69.1/21.9 cm/sec. Prox ICA 63.6/26.3 cm/sec. Prox ICA 124.9/41.5 cm/sec. Mid ICA 76.5/30.3 cm/sec. Mid ICA 124.9/34.9 cm/sec. Dist ICA 71.0/30.3 cm/sec. Dist ICA 69.1/28.5 cm/sec. Rt. ICA/CCA = 0.9. Lt. ICA/CCA = 1.6. Prox ECA 98.6/12.9 cm/sec. Prox ECA 133.7/23.9 cm/sec. Rt. Vert. 50.2/15.8 cm/sec. Lt. Vert. 86.7/27.8 cm/sec. Right Extracranial There is heterogeneous, smooth atherosclerotic plaque noted in the right common carotid artery. There is heterogeneous, smooth atherosclerotic plaque noted in the right internal carotid artery. HX CEA. There is intimal thickening but no significant atherosclerotic plaque noted in the right external carotid artery. Antegrade flow is noted in the right vertebral artery. Left Extracranial There is heterogeneous, smooth atherosclerotic plaque noted in the left common carotid artery. There is heterogeneous, irregular atherosclerotic plaque noted in the left internal carotid artery. There is heterogeneous, irregular atherosclerotic plaque noted in the left external carotid artery. Antegrade flowis noted in the left vertebral artery. Procedure Carotid Duplex [id number]. This is a Carotid Duplex examination using B-mode, color flow and specral Doppler. The exam was diagnostic. Exam performed in department. VL/Carotid Duplex Ultrasound Interpretation Summary Mild (<50%) stenosis right extracranial internal carotid. Mild (<50%) stenosis left extracranial internal carotid. Patent and antegrade vertebrals bilaterally. Ordering Physician: Justyna Clark Referring Physician: Aime Mclean Performed By: Shayan Jara T 03/18/251826 Date _ Anant Gutierres MD CC: SHAHEEN Bunch; Dr. Aime Mclean MD ~ Date Dictated: 03/18/25854 Date Transcribed: 03/18/251826 Tree Care Foreman: Signed [facility] Work Phone: Carotid Duplex Ultrasoundon 09-09-2024 Carotid Duplex Ultrasound [facility] Cardiovascular Services [address] [place] [address] Carotid Duplex Ultrasound 09/09/24 1304 MR#: [id number] Acct: [id number] Name: GIANFRANCO PLATA Rep #: [id number] : 1960 64 From: Anant Gutierres MD Attending Dr: SHAHEEN Bunch Status: REG CLI Ordering Dr: Justyna Clark Date: 09/09/24 Location: [facility] Sex: M C Admitted: Reason For Study: S/P Rt CEA Rt. Velocities/BP Lt. Velocities/BP Prox CCA 68.3/16.3 cm/sec. Prox CCA 93.9/22.3 cm/sec. Mid CCA 73/19.2 cm/sec. Mid CCA 83.9/20 cm/sec. Dist CCA 83.4/17.3 cm/sec. Dist CCA 79/21.2 cm/sec. Prox ICA 52.2/19.2 cm/sec. Prox ICA 156.3/44.8 cm/sec. Mid ICA 71.1/25.8 cm/sec. Mid ICA 161.3/42.6 cm/sec. Dist ICA 65.5/21.1 cm/sec. Dist ICA 79.1/22.5 cm/sec. Rt. ICA/CCA = 0.97. Lt. ICA/CCA = 1.92. Prox ECA 135.6/24.1 cm/sec. Prox ECA 128.4/18.8 cm/sec. Rt. Vert. 52.2/17.3 cm/sec. Lt. Vert. 99.2/18.8 cm/sec. Right Extracranial There is homogeneous, smooth atherosclerotic plaque noted in the right common carotid artery. There is heterogeneous, irregular atherosclerotic plaque noted in the right internal carotid artery. There is heterogeneous, irregular atherosclerotic plaque noted in the right external carotid artery. Antegrade flow is noted in the right vertebral artery. Left Extracranial There is intimal thickening but no significant atherosclerotic plaque noted in the left common carotid artery. There is heterogeneous, irregular atherosclerotic plaque noted in the left internal carotid artery. There is heterogeneous, irregular atherosclerotic plaque noted in the left external carotid artery. Antegrade flow is noted in the left vertebral artery. Procedure Carotid Duplex [id number]. This is a Carotid Duplex examination using B-mode, color flow and specral Doppler. Exam performed in department. VL/Carotid Duplex Ultrasound Interpretation Summary Mild (<50%) stenosis right extracranial internal carotid. Moderate (50-69%) stenosis left extracranial internal carotid. Patent and antegrade vertebrals bilaterally. Ordering Physician: Justyna Clark Referring Physician: Aime Mclean MD Performed By: Kiki Aleman RVT 09/15/241949 Date Anant Gutierres MD CC: SHAHEEN Bunch; Dr. Aime Mclean MD Date Dictated: 09/09/24 1304 Date Transcribed: 09/15/241949 Tree Care Foreman: Signed Normal [facility] Low Dose CT Lung Screeningon 08-18-[address] Lung Screening [facility] Imaging Services [address] [place], [place] [address] Low Dose CT Lung Screening MR#: [id number] Acct: [id number] Name: GIANFRANCO PLATA Rep #: [id number] : 1960 M 64 From: Leno albert DO PCP: Dr. Aime Mclean MD Status: REG CLI Study: Low Dose CT Lung Screening Date of Exam: 08/18 Exam# [id number] Ordering Dr: Aime Mclean [id number] EXAM: CT CHEST, LUNG CANCER SCREENING WITHOUT INTRAVENOUS CONTRAST CLINICAL INDICATION: previous smoker quit 1 year ago. 40 pack years TECHNIQUE: Helically acquired images were obtained of the chest without intravenous contrast using low dose (LDCT) lung cancer screening protocol. This CT exam was performed using one or more of the following dose reduction techniques: automated exposure control, adjustment of the mA and/or kV according to patient size, and/or use of iterative reconstruction technique. COMPARISON: CTA chest, 02/16/2024; lung cancer screening, 12/28/2022 and 07/25/2019. FINDINGS: LUNGS AND PLEURAL SPACES: There are no pulmonary nodules or masses. Minimal right middle lobe and basilar left lower lobe scarring and/or atelectasis. No pleural effusion or thickening. No dense consolidative airspace disease. HEART: Coronary artery calcification. Heart size is normal. No pericardial effusion. MEDIASTINUM: Small hiatal hernia. No mediastinal or hilar adenopathy. Esophagus is unremarkable. THYROID: No significant abnormality. No thyroid lesions. BONES/JOINTS: Degenerative changes in the spine. No suspicious lytic or blastic abnormality. VASCULATURE: Minimal atherosclerosis. LYMPH NODES: No significant abnormality. No enlarged lymph nodes. CT/Low Dose CT Lung Screening IMPRESSION: ACR Lung CT Screening Reporting And Data System (Lung-RADS) score: 1 - Recommend continued annual screening with a low-dose CT (LDCT) in 12 months. Electronically Signed: Leno Worthy DO at 20:06 EDT , CC: Dr. Aime Mclean MD Tree Care Foreman: Signed Normal [facility] AAA Screeningon 08-12-2024 AAA Screening [facility] Cardiovascular Services [address] [place] [address] AAA Screening 08/12/24 0811 MR#: [id number] Acct: [id number] Name: GIANFRANCO PLATA Rep #: [id number] : 1960 64 From: Anant Gutierres MD Attending Dr: Dr. Aime Mclean MD Status: REG CLI Ordering Dr: Aime Mclean MD Date: 08/12/24 Location: [facility] Sex: M C Admitted: Reason For Study: AAA Screening Aorta Measurements Aorta Doppler Measurements Proximal aorta measures2.47 x 2.44cm. in cross- Peak systolic flow velocities within the proximal sectional axis. aorta measure 68.7 cm/sec. Proximal aorta measures2.46cm. in longitudinal Peak systolic flow velocities within the mid aorta axis. measure 86.8 cm/sec. Mid aorta measures1.54 x 1.61cm. in cross- Peak systolic flow velocities within the distal sectional axis. aorta measure 88.6 cm/sec. Mid aorta measures1.55cm. in longitudinal axis. Distal aorta measures1.55 x 1.57cm. in cross- sectional axis. Distal aorta measures1.52cm. in longitudinal axis. Left Iliac Artery Left iliac artery measures 0.97 x 0.92 cm. in the cross-sectional axis. Left iliac artery measures 1.02 cm. in the longitudinal axis. Peak systolic velocity in the left iliac artery measures 101.3 cm/sec. Right Iliac Artery Right iliac artery measures 0.82 x 0.88 cm. in the cross-sectional axis. Right iliac artery measures 0.83 cm. in the longitudinal axis. Peak systolic velocity in the right iliac artery measures 117.6 cm/sec. VL/AAA Screening Interpretation Summary Aorta patent, normal caliber. Bilateral iliac arteries patent, normal caliber. Ordering Physician: Aime Mclean Referring Physician: Aime Mclean Performed By: Shayan Jara RVT 08/12/24 1546 Date Anant Gutierres MD CC: Dr. Aime Mclean MD Date Dictated: 08/12/24810 Date Transcribed: 08/12/241545 [employer]: Signed Normal [facility] Surgery Visit Reporton 04-29 Surgery Visit Report [facility] [address] [place] [address]. [address] [place] [address] OFFICE VISIT Date of Service: 04/29/24 MR#: [id number] Acct: [id number] Name: GIANFRANCO PLATA [place] Rep #: [id number] : 1960 Provider: SHAHEEN Bunch Age/Sex: 64/M Location: [facility] [place] Status: Signed Intake Vital Signs 02/16/24 01:26 04/09/24 12:16 04/29/24 13:01 Height 5 ft 6 in 5 ft 6.14 in Weight: 184 lb BP 117/72 Blood Pressure Location Lt brachial Position Sitting Respiration 16 Pulse 70 Pulse Source Monitor Temp 97.8 F Temp Source Temporal Pulse Oximetry (%) 99 Oxygen Delivery Method room air Intake Visit Reasons: 2-3 W POST OP Chief Complaint: post OP Is patient in pain?: No Allergies No Known Allergies Allergy (Verified 04/29/24 13:03) Medications ???Medication ???Instructions ???Recorded ???Confirmed ???Type aspirin 81 mg tablet,delayed 81 mg PO DAILY@0800 BLOOD THINNER 02/11/18 04/29/24 Rx release hydrochlorothiazide 25 mg tablet 25 mg PO DAILY BP 02/15/24 04/29/24 History atorvastatin 80 mg tablet 80 mg PO QHS CHOLESTEROL #30 tabs 02/16/24 04/29/24 Rx isosorbide mononitrate 60 mg 60 mg PO DAILY BP #30 tabs 02/16/24 04/29/24 Rx tablet,extended release 24 hr clopidogrel 75 mg tablet (Plavix) 75 mg PO DAILY BLOOD THINNER #60 03/27/24 04/29/24 Rx tabs losartan 100 mg tablet 100 mg PO DAILY BP 04/04/24 04/29/24 History metoprolol tartrate 25 mg tablet 25 mg PO BID BP 04/04/24 04/29/24 History oxycodone 5 mg tablet 5 mg PO Q8H PRN PRN Pain Score 04/09/24 04/29/24 Rx 4-10 3 days #9 tabs Have you fallen in the past year?: No Subjective Details: Mr. Gianfranco Plata is a 64 y/o male who presents today for follow-up after right carotid endarterectomy on 04/08/24. He reports he has done well since the procedure. His BPs have overall returned to his baseline, he is back on his usual blood pressure medications. He has not had any episodes of motor weakness, sensory deficits, facial drooping, dysarthria, dysphagia, vision loss, unilateral headaches. The incision has healed well, he reports the swelling has significantly improved over the last 2 weeks. He has some numbness along the incision site but no pain. He complains of a headache today at the base of his neck bilaterally, feels like a tension headache which he tends to get. No other complaints today. Objective Details: A Ox3, NAD RRR Nonlabored respirations R CEA incision site is well healed. No significant swelling, erythema, ecchymosis. Bilateral radial pulses palpable and equal strength bilaterally. Coding Level of Care Code Global Post Op Diagnoses Aftercare following surgery of the circulatory system Z48.812 Stenosis of right carotid artery I65.21 Left carotid artery stenosis I65.22 [facility] Medical History (Updated 04/29/24 @ 13:17 by SHAHEEN Bunch) Wears glasses Kidney stones Excessive bleeding Back pain Injury of head and neck TIA (transient ischemic attack) History of echocardiogram History of stress test Amaurosis fugax of right eye History of hypercholesterolemia Hypercholesterolemia Nicotine abuse HTN (hypertension) Surgical History (Updated 04/04/24 @ 10:24 by Kourtney Santana) Hx of nasal septoplasty Hx of surgical procedure Hx of surgical procedure History of placement of ear tubes ( 2008) Family History Other CAD (coronary artery disease) Diabetes Social History Smoking Status: Former smoker Tobacco: How many years used: 30 Assessment and Plan (No Qualifiers) Assessment and Plan (1) Aftercare following surgery of the circulatory system: Status: Acute (2) Stenosis of right carotid artery: Status: Chronic Comment: s/p R CEA 04/08/24 (3) Left carotid artery stenosis: Status: Acute Comment: CTA 02/15/24 shows L ICA stenosis 55% by NASCET Plan R CEA site is well-healed and he has recovered well. L ICA stenosis is well below threshold for intervention, will continue to monitor. Order placed for carotid duplex 6 months postoperatively. Anticipate repeat at 1 year postoperatively and then yearly thereafter for routine monitoring. He will discontinue Plavix. Continue ASA 81mg daily and atorvastatin 80mg daily. He will return to the office in 1 year, sooner as needed. 04/29/24 1319 Date Justyna JAMISON 05/01/24 1500 Cosigner Signature: Date (if applicable) Anant Gutierres MD CC: Dr. Aime Mclean MD [facility] Absolute lymphocyte countOrd ered By: Adryan Gómez on 02-16-2024 Lymphocytes Auto (Unsp spec) [#/Vol] 1.29 10*3/uL 0.83-4.51 [facility] Automated lymphocyte count a s percentage of total leukocytesOrdered By: Adryan Gómez on 02-16-2024 Lymphocytes/100 WBC Auto (Unsp spec) 19.8 % 19-41 [facility] Basophil percentageOrdered B y: Adryan Gómez on 02-16-2024 Basophil percentage 2.7 mg/dL 2.5-4.9 [facility] Basophils/100 WBC (Bld) 0.6 % 0-1 [facility] Chloride [Moles/Vol] 111 mmol/L 98-107 [facility] Cholesterol [Mass/Vol] 145 mg/dL <200 [facility] Comment on above: <200 mg/dL Desirable 200-240 mg/dL Borderline >240 mg/dL High Risk Eosinophils/100 WBC (Bld) 1.1 % 0-5 [facility] Glucose [Mass/Vol] 107 mg/dL 74-106 [facility] Comment on above: Fasting Glucose resu lt from 100 to 125 mg/dL suggests IMPAIRED HOMEOSTASIS per A.D.A. criteria. Hemoglobin (Bld) [Mass/Vol] 12.8 g/dL 13.0-16.5 [facility] Monocytes/100 WBC (Bld) 8.1 % 0-10 [facility] Neutrophils (Bld) [#/Vol] 4.6 10*3/uL 2.0-7.7 [facility] Neutrophils/100 WBC (Bld) 70.1 % 47-70 [facility] Potassium [Moles/Vol] 3.7 mmol/L 3.5-5.1 [facility] Sodium [Moles/Vol] 141 mmol/L 136-145 [facility] Triglyceride [Mass/Vol] 40 mg/dL <199 [facility] Comment on above: The drugs N-Acetylcy steine and Metamizole may falsely depress this assay.Serum Triglycerides Reference Interval Normal <150 mg/dL Borderline high 150 - 199 mg/dL High 200 - 499 mg/dL Very High > or = 500 mg/dL WBC (Bld) [#/Vol] 6.5 10*3/uL 4.4-11.0 [facility] Determination of erythrocyte mean corpuscular volume (MCV)Ordered By: Adryan Gómez on 02-16-2024 MCV (RBC) [Entitic vol] 87.0 fL 80-94 [facility] Erythrocyte distribution wid th ratioOrdered By: Adryan Gómez on 02-16-2024 Erythrocyte distribution width (RBC) [Ratio] 13.7 % 11.6-14.6 [facility] Erythrocyte distribution wid th standard deviationOrdered By: Adryan Gómez on 02-16-2024 Erythrocyte distribution width (RBC) [Entitic vol] 43.8 fL 35.1-43.9 [facility] Hematocrit Auto (Bld) [Volum e fraction]Ordered By: Adryan Gómez on 02-16-2024 Hematocrit (Bld) [Volume fraction] 38.1 % 40-54 [facility] Immature granulocytes/100 WB C Auto (Bld)Ordered By: Adryan Gómez on 02-16-2024 Immature granulocytes/100 WBC (Bld) 0.300 % 0.0-0.9 [facility] Comment on above: IG% - Immature Granu locytes (promyelocytes, myelocytes and metamyelocytes) > 1% indicates that a LEFT SHIFT is Present. Laboratory - Chemistry and C hemistry - challengeOrdered By: Adryan Gómez on 02-16-2024 Cholesterol in HDL [Mass/Vol] 36 mg/dL >40 [facility] Comment on above: The drugs N-Acetylcy steine and Metamizole may falsely depress this assay. Reference Range HDL <40 mg/dL Low HDL Cholesterol HDL >or= 60 mg/dL High HDL Cholesterol Cholesterol in LDL [Mass/Vol] 101 mg/dL 0-130 [facility] CO2 [Moles/Vol] 24.0 mmol/L 21.0-32.0 [facility] Magnesium [Mass/Vol] 1.7 mg/dL 1.6-2.6 [facility] Urea nitrogen/Creatinine [Mass ratio] 33.6 mg/mg 10-20 [facility] Laboratory - Hematology and Cell countsOrdered By: Adryan Gómez on 02-16-2024 MCH (RBC) [Entitic mass] 29.2 pg 27.0-32.0 [facility] MCHC (RBC) [Mass/Vol] 33.6 g/dL 32-36 [facility] Nucleated RBC/100 WBC (Bld) [Ratio] 0 % 0-5 [facility] Platelet mean volume (Bld) [Entitic vol] 11.7 fL 6.2-12.0 [facility] Platelets (Bld) [#/Vol] 192 10*3/uL 150-450 [facility] No Panel InformationOrdered By: Adryan Gómez on 02-16-2024 Estimated Creatinine Clearance Calc 114.06 ml/min [facility] Estimated GFR (MDRD) Amer 149 mL/min >60 [facility] Comment on above: GFR Calc Estimated GFR (MDRD) Non-Af Amer 123 mL/min >60 [facility] Comment on above: Non- GFR Calc Troponin I High Sensitivity 26 pg/mL 3.0-78.0 [facility] Comment on above: Please Note: New Mimi t Units and Gender Specific Reference Ranges. For more information see Policy Stat Procedure [place] High Sensitivity Troponin (TNIH) and attachments. VLDL Cholesterol 8 mg/dL 5-40 [facility] RBC Auto (Bld) [#/Vol]Ordere d By: Adryan Gómez on 02-16-2024 RBC (Bld) [#/Vol] 4.38 10*6/uL 4.6-6.2 [facility] Serum or plasma calcium itzel urement (mass/volume)Ordered By: Adryan Gómez on 02-16-2024 Calcium [Mass/Vol] 8.9 mg/dL 8.5-10.1 [facility] Serum or plasma creatinine m easurement (mass/volume)Ordered By: Adryan Gómez on 02-16-2024 Creatinine [Mass/Vol] 0.68 mg/dL 0.70-1.30 [facility] Comment on above: The validity of the calculated GFR & GFRAA in patients over 70 years has not been determined. Clinical correlation is essential. Serum or plasma urea nitroge n measurement (mass/volume)Ordered By: Adryan Gómez on 02-16-2024 Urea nitrogen [Mass/Vol] 23 mg/dL 7-18 [facility] Thin prep Papanicolaou smear with manual screeningOrdered By: Adryan Gómze on 02-16-2024 Thin prep Papanicolaou smear with manual screening 6 5-15 [facility] Absolute lymphocyte countOrd ered By: Belle Mccoy on 02-15-2024 Lymphocytes Auto (Unsp spec) [#/Vol] 1.74 10*3/uL 0.83-4.51 [facility] Automated lymphocyte count a s percentage of total leukocytesOrdered By: Belle Mccoy on 02-15-2024 Lymphocytes/100 WBC Auto (Unsp spec) 27.4 % 19-41 [facility] Basophil percentageOrdered B y: Belle Mccoy on 02-15-2024 Basophils/100 WBC (Bld) 0.8 % 0-1 [facility] Chloride [Moles/Vol] 113 mmol/L 98-107 [facility] Eosinophils/100 WBC (Bld) 3.5 % 0-5 [facility] Glucose [Mass/Vol] 122 mg/dL 74-106 [facility] Comment on above: Fasting Glucose resu lt from 100 to 125 mg/dL suggests IMPAIRED HOMEOSTASIS per A.D.A. criteria. Hemoglobin (Bld) [Mass/Vol] 13.3 g/dL 13.0-16.5 [facility] Monocytes/100 WBC (Bld) 11.5 % 0-10 [facility] Neutrophils (Bld) [#/Vol] 3.6 10*3/uL 2.0-7.7 [facility] Neutrophils/100 WBC (Bld) 56.5 % 47-70 [facility] Potassium [Moles/Vol] 3.5 mmol/L 3.5-5.1 [facility] Sodium [Moles/Vol] 144 mmol/L 136-145 [facility] WBC (Bld) [#/Vol] 6.3 10*3/uL 4.4-11.0 [facility] Determination of erythrocyte mean corpuscular volume (MCV)Ordered By: Belle Mccoy on 02-15-2024 MCV (RBC) [Entitic vol] 86.4 fL 80-94 [facility] Erythrocyte distribution wid th ratioOrdered By: Belle Mccoy on 02-15-2024 Erythrocyte distribution width (RBC) [Ratio] 13.8 % 11.6-14.6 [facility] Erythrocyte distribution wid th standard deviationOrdered By: Belle Mccoy on 02-15-2024 Erythrocyte distribution width (RBC) [Entitic vol] 43.7 fL 35.1-43.9 [facility] Hematocrit Auto (Bld) [Volum e fraction]Ordered By: Belle Mccoy on 02-15-2024 Hematocrit (Bld) [Volume fraction] 39.4 % 40-54 [facility] Immature granulocytes/100 WB C Auto (Bld)Ordered By: Belle Mccoy on 02-15-2024 Immature granulocytes/100 WBC (Bld) 0.300 % 0.0-0.9 [facility] Comment on above: IG% - Immature Granu locytes (promyelocytes, myelocytes and metamyelocytes) > 1% indicates that a LEFT SHIFT is Present. Laboratory - Chemistry and C hemistry - challengeOrdered By: Belle Mccoy on 02-15-2024 CO2 [Moles/Vol] 28.0 mmol/L 21.0-32.0 [facility] Urea nitrogen/Creatinine [Mass ratio] 37.1 mg/mg 10-20 [facility] Laboratory - Hematology and Cell countsOrdered By: Belle Mccoy on 02-15-2024 MCH (RBC) [Entitic mass] 29.2 pg 27.0-32.0 [facility] MCHC (RBC) [Mass/Vol] 33.8 g/dL 32-36 [facility] Nucleated RBC/100 WBC (Bld) [Ratio] 0 % 0-5 [facility] Platelet mean volume (Bld) [Entitic vol] 11.1 fL 6.2-12.0 [facility] Platelets (Bld) [#/Vol] 184 10*3/uL 150-450 [facility] No Panel InformationOrdered By: Adryan Gómez on 02-15-2024 D-Dimer Quantitative (PE/DVT) 0.52 FEU/ug/m 0.27-0.49 [facility] Comment on above: CRITICAL VALUE VERIF IED. [facility]02/15/24 233Naeem Haskins.RESULTS READ BACK BY SAME. D-Dimer ELEVATED (>0.49): Additional studies and clinicalassessments are indicated to conclude diagnosis of:Deep Vein Thrombosis (DVT) or Pulmonary Embolism (PE) No Panel InformationOrdered By: Belle Mccoy on 02-15-2024 Troponin I High Sensitivity 16 pg/mL 3.0-78.0 [facility] Comment on above: Please Note: New Mimi t Units and Gender Specific Reference Ranges. For more information see Policy Stat Procedure [place] High Sensitivity Troponin (TNIH) and attachments. Estimated Creatinine Clearance Calc 96.49 ml/min [facility] Estimated GFR (MDRD) Amer 123 mL/min >60 [facility] Comment on above: GFR Calc Estimated GFR (MDRD) Non-Af Amer 102 mL/min >60 [facility] Comment on above: Non- GFR Calc RBC Auto (Bld) [#/Vol]Ordere d By: Belle Mccoy on 02-15-2024 RBC (Bld) [#/Vol] 4.56 10*6/uL 4.6-6.2 [facility] Serum or plasma calcium itzel urement (mass/volume)Ordered By: Belle Mccoy on 02-15-2024 Calcium [Mass/Vol] 9.0 mg/dL 8.5-10.1 [facility] Serum or plasma creatinine m easurement (mass/volume)Ordered By: [facility] on 02-15-2024 Creatinine [Mass/Vol] 0.81 mg/dL 0.70-1.30 [facility] Comment on above: The validity of the calculated GFR & GFRAA in patients over 70 years has not been determined. Clinical correlation is essential. Serum or plasma urea nitroge n measurement (mass/volume)Ordered By: [facility] M[facility] on 02-15-2024 Urea nitrogen [Mass/Vol] 30 mg/dL 7-18 [facility] Thin prep Papanicolaou smear with manual screeningOrdered By: [facility] on 02-15-2024 Thin prep Papanicolaou smear with manual screening 3 5-15 [facility] Whole blood hemoglobin A1c/t otal hemoglobin ratio (mass fraction)Ordered By: Adryan Gómez on 02-15-2024 HbA1c (Bld) [Mass fraction] 5.6 % 3.8-5.6 [facility] Comment on above: Normal < 5.7 % Predi abetic 5.7 - 6.4 % Diabetic >or= 6.5 % Please note range changes. Basophil percentageOrdered B y: Aime Mclean on 02-11-2024 Bilirubin [Mass/Vol] 0.40 mg/dL 0.20-1.00 [facility] Comment on above: For patients on eltr ombopag therapy, use of Dimension [place] TBIL is not recommended. Chloride [Moles/Vol] 107 mmol/L 98-107 [facility] Glucose [Mass/Vol] 89 mg/dL 74-106 [facility] Hemoglobin (Bld) [Mass/Vol] 14.2 g/dL 13.0-16.5 [facility] Potassium [Moles/Vol] 3.7 mmol/L 3.5-5.1 [facility] Protein [Mass/Vol] 7.1 g/dL 6.4-8.2 [facility] Sodium [Moles/Vol] 140 mmol/L 136-145 [facility] WBC (Bld) [#/Vol] 6.3 10*3/uL 4.4-11.0 [facility] Determination of erythrocyte mean corpuscular volume (MCV)Ordered By: Aime Mclean on 02-11-2024 MCV (RBC) [Entitic vol] 86.2 fL 80-94 [facility] Erythrocyte distribution wid th ratioOrdered By: Aime Mclean on 02-11-2024 Erythrocyte distribution width (RBC) [Ratio] 13.9 % 11.6-14.6 [facility] Erythrocyte distribution wid th standard deviationOrdered By: Aime Mclean on 02-11-2024 Erythrocyte distribution width (RBC) [Entitic vol] 44.4 fL 35.1-43.9 [facility] Hematocrit Auto (Bld) [Volum e fraction]Ordered By: Aime Mclean on 02-11-2024 Hematocrit (Bld) [Volume fraction] 42.0 % 40-54 [facility] Iron measurement (mass/mass) Ordered By: Aime Mclean on 02-11-2024 Iron (Unsp spec) [Mass/Mass] 65 ug/dL 65-175 [facility] Laboratory - Chemistry and C hemistry - challengeOrdered By: Aime Mclean on 02-11-2024 Albumin/Globulin [Mass ratio] 1.1 {ratio} 0.9-2.4 [facility] ALP [Catalytic activity/Vol] 82 U/L 45-117 [facility] ALT [Catalytic activity/Vol] 43 U/L 16-61 [facility] CO2 [Moles/Vol] 28.0 mmol/L 21.0-32.0 [facility] Cobalamin (Vitamin B12) [Mass/Vol] 464 pg/mL 211-911 [facility] Globulin (S) [Mass/Vol] 3.4 g/dL 2.2-4.2 [facility] Magnesium [Mass/Vol] 1.8 mg/dL 1.6-2.6 [facility] Urea nitrogen/Creatinine [Mass ratio] 27.1 mg/mg 10-20 [facility] Laboratory - Hematology and Cell countsOrdered By: Aime Mclean on 02-11-2024 MCH (RBC) [Entitic mass] 29.2 pg 27.0-32.0 [facility] MCHC (RBC) [Mass/Vol] 33.8 g/dL 32-36 [facility] Platelet mean volume (Bld) [Entitic vol] 11.9 fL 6.2-12.0 [facility] Platelets (Bld) [#/Vol] 225 10*3/uL 150-450 [facility] No Panel InformationOrdered By: Aime Mclean on 02-11-2024 Estimated GFR (MDRD) Amer 111 mL/min >60 [facility] Comment on above: GFR Calc Estimated GFR (MDRD) Non-Af Amer 92 mL/min >60 [facility] Comment on above: Non- GFR Calc Troponin I High Sensitivity 11 pg/mL 3.0-78.0 [facility] Comment on above: Please Note: New Mimi t Units and Gender Specific Reference Ranges. For more information see Policy Stat Procedure [place] High Sensitivity Troponin (TNIH) and attachments. RBC Auto (Bld) [#/Vol]Ordere d By: Aime Mclean on 02-11-2024 RBC (Bld) [#/Vol] 4.87 10*6/uL 4.6-6.2 [facility] Serum or plasma calcium itzel urement (mass/volume)Ordered By: Aime Mclean on 02-11-2024 Calcium [Mass/Vol] 9.2 mg/dL 8.5-10.1 [facility] Serum or plasma creatinine m easurement (mass/volume)Ordered By: Aime Mclean on 02-11-2024 Creatinine [Mass/Vol] 0.89 mg/dL 0.70-1.30 [facility] Comment on above: The validity of the calculated GFR & GFRAA in patients over 70 years has not been determined. Clinical correlation is essential. Serum or plasma thyroid stim ulating hormone (TSH) measurement (units/volume)Ordered By: Aime Mclean on 02-11-2024 TSH Qn 1.43 uIU/mL 0.358-3.74 [facility] Serum or plasma urea nitroge n measurement (mass/volume)Ordered By: Aime Mclean on 02-11-2024 Urea nitrogen [Mass/Vol] 24 mg/dL 7-18 [facility] Thin prep Papanicolaou smear with manual screeningOrdered By: Aime Mclean on 02-11-2024 Thin prep Papanicolaou smear with manual screening 3.7 g/dL 3.2-5.0 [facility] Thin prep Papanicolaou smear with manual screening 25 U/L 15-37 [facility] Thin prep Papanicolaou smear with manual screening 5 5-15 [facility] Basophil percentageOrdered B y: Alexy Mclean on 07-05-2023 Bilirubin [Mass/Vol] 0.70 mg/dL 0.20-1.00 [facility] Comment on above: For patients on eltr ombopag therapy, use of Dimension [place] TBIL is not recommended. Chloride [Moles/Vol] 109 mmol/L 98-107 [facility] Cholesterol [Mass/Vol] 191 mg/dL <200 [facility] Comment on above: <200 mg/dL Desirable 200-240 mg/dL Borderline >240 mg/dL High Risk Glucose [Mass/Vol] 106 mg/dL 74-106 [facility] Comment on above: Fasting Glucose resu lt from 100 to 125 mg/dL suggests IMPAIRED HOMEOSTASIS per A.D.A. criteria. Potassium [Moles/Vol] 3.9 mmol/L 3.5-5.1 [facility] Protein [Mass/Vol] 7.0 g/dL 6.4-8.2 [facility] Sodium [Moles/Vol] 140 mmol/L 136-145 [facility] Triglyceride [Mass/Vol] 125 mg/dL <199 [facility] Comment on above: The drugs N-Acetylcy steine and Metamizole may falsely depress this assay.Serum Triglycerides Reference Interval Normal <150 mg/dL Borderline high 150 - 199 mg/dL High 200 - 499 mg/dL Very High > or = 500 mg/dL Laboratory - Chemistry and C hemistry - challengeOrdered By: Alexy Mclean on 07-05-2023 ALP [Catalytic activity/Vol] 98 U/L 45-117 [facility] ALT [Catalytic activity/Vol] 32 U/L 16-61 [facility] CO2 [Moles/Vol] 25.0 mmol/L 21.0-32.0 [facility] Globulin (S) [Mass/Vol] 3.6 g/dL 2.2-4.2 [facility] Urea nitrogen/Creatinine [Mass ratio] 26.0 mg/mg 10-20 [facility] No Panel InformationOrdered By: Alexy Mclean on 07-05-2023 Estimated GFR (MDRD) Amer 131 mL/min >60 [facility] Comment on above: GFR Calc Estimated GFR (MDRD) Non-Af Amer 108 mL/min >60 [facility] Comment on above: Non- GFR Calc Prostate Specific Antigen Screen 2.62 ng/mL 0.00-4.00 [facility] Comment on above: This test was perfor med using the TPSA assay method for the[facility] chemistry system. Values obtained with differentassay methods cannot be used interchangably.When changing PSA assays in the course of monitoring apatient, additional sequential testing should be carriedout to confirm baseline values. Vitamin D 25-Hydroxy 40.1 ng/mL [facility] Comment on above: Vitamin D 25(OH) Sta tus Range Deficiency <20 ng/mL (50nmol/L) Insufficiency 20 - 30 ng/mL (50 - 75 nmol/L) Sufficiency 30 - 100 ng/mL (75 - 250 nmol/L) Toxicity >100 ng/mL (>250 nmol/L) Serum or plasma albumin itzel urement (mass/volume)Ordered By: Alexy Mclean on 07-05-2023 Albumin [Mass/Vol] 3.4 g/dL 3.2-5.0 [facility] Serum or plasma albumin/glob ulin mass ratioOrdered By: Alexy Mclean on 07-05-2023 Albumin/Globulin [Mass ratio] 0.9 {ratio} 0.9-2.4 [facility] Serum or plasma calcium itzel urement (mass/volume)Ordered By: Alexy Mclean on 07-05-2023 Calcium [Mass/Vol] 9.3 mg/dL 8.5-10.1 [facility] Serum or plasma cholesterol in HDL measurement (mass/volume)Ordered By: Alexy Mclean on 07-05-2023 Cholesterol in HDL [Mass/Vol] 43 mg/dL >40 [facility] Comment on above: The drugs N-Acetylcy steine and Metamizole may falsely depress this assay. Reference Range HDL <40 mg/dL Low HDL Cholesterol HDL >or= 60 mg/dL High HDL Cholesterol Serum or plasma cholesterol in VLDL measurement (mass/volume)Ordered By: Alexy Mclean on 07-05-2023 Cholesterol in VLDL [Mass/Vol] 25 mg/dL 5-40 [facility] Serum or plasma creatinine m easurement (mass/volume)Ordered By: Alexy Mclean on 07-05-2023 Creatinine [Mass/Vol] 0.77 mg/dL 0.70-1.30 [facility] Comment on above: The validity of the calculated GFR & GFRAA in patients over 70 years has not been determined. Clinical correlation is essential. Serum or plasma low density lipoprotein (LDL) cholesterol measurement (mass/volume)Ordered By: Alexy Mclean on 07-05-2023 Cholesterol in LDL [Mass/Vol] 123 mg/dL 0-130 [facility] Serum or plasma urea nitroge n measurement (mass/volume)Ordered By: Alexy Mclean on 07-05-2023 Urea nitrogen [Mass/Vol] 20 mg/dL 7-18 [facility] Thin prep Papanicolaou smear with manual screeningOrdered By: Alexy Mclean on 07-05-2023 Thin prep Papanicolaou smear with manual screening 15 U/L 15-37 [facility] Thin prep Papanicolaou smear with manual screening 6 5-15 [facility] Influenza virus A and B and SARS-CoV-2 (COVID-19) Ag panel - Upper respiratory specimOrdered By: Dr. Mares on 01-31-2023 SARS-CoV-2 (COVID-19) RNA JAIME+probe Ql (Resp) [facility] Basophil percentageon 2021 Bilirubin [Mass/Vol] 0.30 mg/dL 0.20-1.00 [facility] Work Phone: Comment on above: For patients on eltr ombopag therapy, use of Dimension [place] TBIL is not recommended. Chloride [Moles/Vol] 108 mmol/L 98-107 [facility] Work Phone: Cholesterol [Mass/Vol] 171 mg/dL <200 [facility] Work Phone: Comment on above: <200 mg/dL Desirable 200-240 mg/dL Borderline >240 mg/dL High Risk Glucose [Mass/Vol] 93 mg/dL 74-106 [facility] Work Phone: Potassium [Moles/Vol] 3.6 mmol/L 3.5-5.1 [facility] Work Phone: Protein [Mass/Vol] 7.2 g/dL 6.4-8.2 [facility] Work Phone: Sodium [Moles/Vol] 140 mmol/L 136-145 [facility] Work Phone: Triglyceride [Mass/Vol] 273 mg/dL <199 [facility] Work Phone: Comment on above: The drugs N-Acetylcy steine and Metamizole may falsely depress this assay.Serum Triglycerides Reference Interval Normal <150 mg/dL Borderline high 150 - 199 mg/dL High 200 - 499 mg/dL Very High > or = 500 mg/dL Laboratory - Chemistry and C hemistry - challengeon 06-21-2022 ALP [Catalytic activity/Vol] 101 U/L 45-117 [facility] Work Phone: ALT [Catalytic activity/Vol] 47 U/L 16-61 [facility] Work Phone: [phone] CO2 [Moles/Vol] 27.0 mmol/L 21.0-32.0 [facility] Work Phone: [phone] Globulin (S) [Mass/Vol] 3.8 g/dL 2.2-4.2 [facility] Work Phone: [phone] Urea nitrogen/Creatinine [Mass ratio] 30.1 mg/mg 10-20 [facility] Work Phone: [phone] No Panel Informationon 06-21 Estimated GFR (MDRD) Amer 110 mL/min >60 [facility] Work Phone: Comment on above: GFR Calc Estimated GFR (MDRD) Non-Af Amer 91 mL/min >60 [facility] Work Phone: Comment on above: Non- GFR Calc Prostate Specific Antigen Screen 1.56 ng/mL 0.00-4.00 [facility] Work Phone: [phone] Comment on above: This test was perfor med using the TPSA assay method for [employer] chemistry system. Values obtained with differentassay methods cannot be used interchangably.When changing PSA assays in the course of monitoring apatient, additional sequential testing should be carriedout to confirm baseline values. Vitamin D 25-Hydroxy 41.0 ng/mL [facility] Work Phone: Comment on above: Vitamin D 25(OH) Sta tus Range Deficiency <20 ng/mL (50nmol/L) Insufficiency 20 - 30 ng/mL (50 - 75 nmol/L) Sufficiency 30 - 100 ng/mL (75 - 250 nmol/L) Toxicity >100 ng/mL (>250 nmol/L) Serum or plasma albumin itzel urement (mass/volume)on 06-21-2022 Albumin [Mass/Vol] 3.4 g/dL 3.2-5.0 [facility] Work Phone: [phone] Serum or plasma albumin/glob ulin mass ratioon 06-21-2022 Albumin/Globulin [Mass ratio] 0.9 {ratio} 0.9-2.4 [facility] Work Phone: Serum or plasma calcium itzel urement (mass/volume)on 06-21-2022 Calcium [Mass/Vol] 9.0 mg/dL 8.5-10.1 [facility] Work Phone: Serum or plasma cholesterol in HDL measurement (mass/volume)on 06-21-2022 Cholesterol in HDL [Mass/Vol] 50 mg/dL >40 [facility] Work Phone: Comment on above: The drugs N-Acetylcy steine and Metamizole may falsely depress this assay. Reference Range HDL <40 mg/dL Low HDL Cholesterol HDL >or= 60 mg/dL High HDL Cholesterol Serum or plasma cholesterol in VLDL measurement (mass/volume)on 06-21-2022 Cholesterol in VLDL [Mass/Vol] 55 mg/dL 5-40 [facility] Work Phone: Serum or plasma creatinine m easurement (mass/volume)on 06-21-2022 Creatinine [Mass/Vol] 0.90 mg/dL 0.70-1.30 [facility] Work Phone: Comment on above: The validity of the calculated GFR & GFRAA in patients over 70 years has not been determined. Clinical correlation is essential. Serum or plasma low density lipoprotein (LDL) cholesterol measurement (mass/volume)on 06-21-2022 Cholesterol in LDL [Mass/Vol] 66 mg/dL 0-130 [facility] Work Phone: [phone] Serum or plasma urea nitroge n measurement (mass/volume)on 06-21-2022 Urea nitrogen [Mass/Vol] 27 mg/dL 7-18 [facility] Work Phone: [phone] Thin prep Papanicolaou smear with manual screeningon 06-21-2022 Thin prep Papanicolaou smear with manual screening 33 U/L 15-37 [facility] Work Phone: [phone] Thin prep Papanicolaou smear with manual screening 5 5-15 [facility] Work Phone: [phone] Vital Signs Date Time Vital Sign Value Performing Clinician Faci lity 04-14-2025 14:11-0400 Body temperature 98.4 [degF] Dr. Aime Mclean MD Work Phone: [facility] 04-14-2025 14:11-0400 Body weight 83.[address] Aime Mclean MD Work Phone: [facility] 04-14-2025 14:11-0400 Diastolic blood pressure 78 mm[Hg] Dr. Aime Mclean MD Work Phone: [phone] [place] [address] 04-14-2025 14:11-0400 Heart rate 84 /min Dr. Aime Mclean MD Work Phone: [phone] [place] [address] 04-14-2025 14:11-0400 Respiratory rate 16 /min Dr. Aime Mclean MD Work Phone: [phone] [address] 04-14-2025 14:11-0400 SaO2% (BldA) [Mass fraction] 98 % Dr. Aime Mclean MD Work Phone: [facility] 04-14-2025 14:11-0400 Systolic blood pressure 121 mm[Hg] Dr. Aime Mclean MD Work Phone: [facility] 03-19-2025 12:54-0400 Body height [address] Aime Mclean MD Work Phone: [facility] 02-16-2024 12:23-0400 Heart rate 71 /min Dr. Aime Mclean Work Phone: [facility] 02-16-2024 12:17-0400 Body temperature 97.8 [degF] Dr. Aime Mclean Work Phone: [facility] 02-16-2024 12:17-0400 Diastolic blood pressure 81 mm[Hg] Dr. Aime Mclean Work Phone: [facility] 02-16-2024 12:17-0400 Respiratory rate 17 /min Dr. Aime Mclean Work Phone: [facility] 02-16-2024 12:17-0400 SaO2% (BldA) [Mass fraction] 98 % Dr. Aime Mclean Work Phone: [facility] 02-16-2024 12:17-0400 Systolic blood pressure 145 mm[Hg] Dr. Aime Mclean Work Phone: [facility] 02-16-2024 01:26-0400 Body height 167.[address] Aime Mclean Work Phone: [facility] 02-16-2024 01:26-0400 Body mass index (BMI) [Ratio] 31.3 kg/m2 Dr. Aime Mclean Work Phone: [facility] 02-16-2024 01:26-0400 Body weight [address] Aime Mclean Work Phone: [facility] 02-16-2024 00:00-0400 Body temperature 97.1 [degF] [facility] 02-16-2024 00:00-0400 Diastolic blood pressure 88 mm[Hg] [facility] 02-16-2024 00:00-0400 Heart rate 71 /min [facility] 02-16-2024 00:00-0400 Respiratory rate 18 /min [facility] 02-16-2024 00:00-0400 SaO2% (BldA) [Mass fraction] 98 % [facility] 02-16-2024 00:00-0400 Systolic blood pressure 173 mm[Hg] [facility] 02-15-2024 20:17-0400 Body height 167.64 cm [facility] 02-15-2024 20:17-0400 Body mass index (BMI) [Ratio] 31.8 kg/m2 [facility] 02-15-2024 20:17-0400 Body weight 89.4 kg [facility] 01-31-2023 04:00-0400 Body temperature 98.2 [degF] [facility] 01-31-2023 04:00-0400 Diastolic blood pressure 80 mm[Hg] [facility] 01-31-2023 04:00-0400 Heart rate 88 /min [facility] 01-31-2023 04:00-0400 Respiratory rate 19 /min [facility] 01-31-2023 04:00-0400 SaO2% (BldA) [Mass fraction] 97 % [facility] 01-31-2023 04:00-0400 Systolic blood pressure 146 mm[Hg] [facility] 01-31-2023 02:24-0400 Body height 177.8 cm [facility] 01-31-2023 02:24-0400 Body mass index (BMI) [Ratio] 27.1 kg/m2 [facility] 01-31-2023 02:240400 Body weight 86 kg [facility] Encounters Encounter Date Encounter Type Care Provider Facility Start: 04-14-2025 End: 04-14-2025 Patient encounter procedure Justyna JAMISON -[facility] Work Phone: Start: 04-14-2025 End: 04-14-[address] Aime Mclean MD Work Phone: [facility] Work Phone: Start: 03-18-2025 Non-patient / Non-visit Dr. Anant santizo MD -[facility] Start: 03-18-2025 End: 03-18-[address] Aime Mclean MD Work Phone: [facility] Work Phone: Start: 03-18-2025 End: 03-18-2025 Patient encounter procedure Justyna JAMISON -[facility] Work Phone: Start: 03-18-2025 End: 03-18-2025 ambulatory Justyna Clark Facility:[facility] Start: 09-09-2024 ambulatory Justyna Clakr Facility:[facility] Start: 09-09-2024 End: 09-09-2024 ambulatory Justyna Clark Facility:[facility] Start: 08-18-2024 End: 08-18-2024 ambulatory Aime Mclean Facility:[facility] Start: 08-12-2024 ambulatory Anant Gutierres Facility:[facility] Start: 08-12-2024 End: 08-12-2024 ambulatory Aime Mclean Facility:[facility] Start: 04-29-2024 End: 04-29-2024 ambulatory Aime Mclean Facility:[facility] Start: 02-16-2024 Non-patient / Non-visit Dr. Jasmina Mclean Work Phone: [facility] Work Phone: Start: 02-16-2024 Non-patient / Non-visit Dr. Jasmina Mclean Work Phone: [facility] Start: 02-15-2024 End: 02-16-2024 Evaluation and management of inpatient [facility]Progressive Care Unit Work Phone: Start: 02-15-2024 End: 02-16-[address] Aime Mclean Work Phone: [facility] Work Phone: Start: 02-11-2024 End: 02-11-2024 ambulatory [facility] Work Phone: Start: 02-11-2024 End: 02-11-2024 Patient encounter procedure [facility] Start: 07-05-2023 End: 07-05-2023 ambulatory [facility] Work Phone: Start: 07-05-2023 End: 07-05-2023 Patient encounter procedure [facility] Start: 07-04-2023 End: 07-04-2023 ambulatory [facility] Work Phone: Start: 07-04-2023 End: 07-04-2023 Patient encounter procedure [facility] Start: 01-31-2023 End: 01-31-2023 Emergency department patient visit [facility]Emergency Department Start: 12-28-2022 End: 12-28-2022 ambulatory [facility] Work Phone: Start: 12-28-2022 End: 12-28-2022 Patient encounter procedure [facility]-Cat Scan, [facility] Start: 06-21-2022 End: 06-21-2022 Patient encounter procedure [facility]-Laboratory, [place] [facility] Date Procedure Procedure Detail Performing Clinician Start: 02-16-2024 MRI of brain without contrast Dr. Aime Mclean Work Phone: Start: 02-16-2024 Cardiovascular stres s test using pharmacologic stress agent Dr. Aime Mclean Work Phone: Start: 02-16-2024 CT angiography of ch est with contrast Dr. Aime Mclean Work Phone: Start: 02-15-2024 CT angiography of he ad and neck Start: 02-15-2024 Plain chest X-ray Start: 01-31-2023 Plain chest X-ray Start: 12-28-2022 CT of chest SARS-CoV-2 & FLU Ant igen (Rapid) Plan of Treatment Date Care Activity Detail Author Start: 02-16-2024 Patient discharge [facility] Start: 02-16-2024 [facility] Start: 02-16-2024 Following clinical p athway protocol [facility] Start: 02-16-2024 Notification of physician [facility] Start: 02-16-2024 Tobacco use cessatio n education [facility] Start: 02-16-2024 [facility] Start: 02-15-2024 Troponin I measurement [facility] Start: 02-15-2024 Admission procedure [facility] Start: 02-15-2024 Hospital admission, emergency, from emergency room, medical nature [facility] Start: 02-15-2024 [facility] Hemoglobin A1c/Hemoglobin.total in Blood [facility] Patient Education ED URI, Viral, No Abx (Adult) [facility] Work Phone: Patient referral [facility] Work Phone: Troponin I measurement [facility] Payers Date Payer Category Payer Self-pay [id number] 2024 Medicare [id number] 60a [id number] 2013 Unknown [id number] Unknown [id number] 2.16.8 [id number] Unknown [id number] 2.16.8 [id number] Unknown [id number] 2.16.8 [id number] Unknown [id number] 2.16.8 [id number] Unknown [id number] 2.16.8 [id number] Unknown [id number] 2.16.8 [id number] Unknown [id number] 2.16.8 [id number] Unknown [id number] 2.16.8 [id number] Unknown [id number] 2.16.8 [id number] Social History Date Type Detail Facility Start: 11-12-2019 End: 02-16-2024 Tobacco smoking status CAIS Unknown if ever smoked [facility] Start: 02-10-2018 Heavy [facility] Start: 02-10-2018 None [facility] Start: 02-10-2018 With Family [facility] Start: 02-11-2018 Cigarettes [facility] Start: 1960 Sex Assigned At Male W [facility] Start: 03-19-2025 [facility] Medical Equipment Procedure Code Equipment Code Equipment Origin al Text Equipment Identifier Dates Endarterectomy, carotid Collagen haemostatic agent, non-antimicrobial [id number] FDA Start: 04-08-2024 Endarterectomy, carotid Cardiovascular patch, animal-derived ()[id number] FDA Start: 04-08-2024 Endarterectomy, carotid Ligation clip, metallic ()[id number] FDA Start: 04-08-2024 Endarterectomy, carotid Ligation clip, metallic ()[id number] FDA Start: 04-08-2024 Goals Date Patient Goal Desired Activity /State Functional Status Date Assessment Result Facility 02-16-2024 Functional status Up ad bao [facility] Work Phone: Mental Status Date Assessment Result Facility 02-16-2024 Cognitive function Voice/Name [facility] Work Phone: 02-15-2024 Cognitive function Level Of Cons ciousness Awake;Alert;Appropriate;Follow s Commands [facility] Work Phone: History and physical note 02-16-2024 Note Date & Type Note Facility 02-16-2024 History and physical note Note Date/Time February 15, 2024 9:34pm [facility] Medical Records Department [address] [place] [address] H&P Exam - Hospitalist 02/15/242118 MR#: [id number] Acct: [id number] Name: GIANFRANCO PLATA Rep #:[id number] : 1960 63 From: Adryan Deras DO PCP: Dr. Aime Mclean MD Status :ADM ARY Location: [place] [address] HPI - General General Date of Admission: 02/15/24 Date of Service: 02/15/24 Chief Complaint: Chest Pain. HPI Narrative GIANFRANCO PLATA, is a 63 M with a past medical history of essential hypertension, hyperlipidemia, obesity; with BMI of 31.8 this admission, tobacco abuse and OA who presents to [facility] ER complaining of chest pain. Mr. Plata reports his symptoms began approximately two hours prior to arrival he developed chest pain that began at rest watching television. He describes the chest pain as substernal, pressure-like, heaviness, moderate and radiating into his left neck and patient's stating he could hear his heartbeat in his left ear. His symptoms lasted about 30 minutes and he did not feel better after going to lay down so he finally decided to activate EMS and come infor further evaluation and treatment. He goes on to describe severe intermittent headache with coinciding intermittent loss of vision in the right eye within the past month with patient having been sent to an beverage specialist with no obvious acute pathologic changes. He also admits to progressively worsening fatigue over the past several months with intermittent dyspnea on exertion and previous similar episodes like this that were more short-lived overthe same timeframe with him deciding not to seek medical attention at that time because his symptoms will resolve spontaneously. He denies related fever, chills, nausea, vomiting, diaphoresis, palpitations, heart racing, recent travel, recent trauma or surgery. In the ER he was noted to have an elevated blood pressure of 191/93 mmHg present on admission consistent with hypertensive urgency complicated by intermittent chest pain and recent amaurosis fugax of theright eye with and unremarkable and nonspecific EKG along with a normal troponinof 14 pg/mL along with normal labs and negative chest x-ray and he was not then admitted to the CDU under observation status for status expected to be less than48 hours. [facility] Medical History HTN (hypertension) Hypercholesterolemia Home Medications aspirin 81 mg tablet,delayed release 81 mg PO DAILY@0800 02/11/18 [Rx Last Taken Unknown] atorvastatin 20 mg tablet 20 mg PO DAILY 02/15/24 [History Last Taken Unknown] hydrochlorothiazide 25 mg tablet 25 mg PO DAILY 02/15/24 [History Last Taken Unknown] losartan 50 mg tablet 100 mg PO DAILY 02/15/24 [History Last Taken Unknown] metoprolol succinate 50 mg tablet,extended release 24 hr 25 mg PO BID 02/15/24 [History Last Taken Unknown] Allergy/AdvReac Type Severity Reaction Status Date / Time No Known Allergies Allergy Verified 02/15/24 20:56 Social History Smoking Status: Former smoker ROS ROS Narrative Review of systems: General: Patient admits to lethargy and dyspnea on exertion but he denies fever or chills. HENT: Denies headache, denies stuffy nose, denies sore throat EYES: Denies changes in vision or discharge from eyes. Resp: Patient admits to shortness of breath made worse with exertion but denies cough. Cardiac: Patient admits to chest pain as described in HPI. He denies orthopnea,heart racing or palpitations. GI: Denies abdominal pain, denies changes in bowel, denies nausea or vomiting : Denies changes in urination Extremity: Denies swelling Musculoskeletal: Patient denies arthralgias or myalgias. Neuro: Patient denies associated headache, paresthesias or focal neurologic weakness Heme: Denies any bleeding or bruising Skin: Denies rashes Psychiatric: No complaints voiced related to uncontrolled depression or anxiety. Endocrine: No polyuria, polydipsia or polyphagia. The rest of the 14 point ROS was negative except for positives in HPI. Vital Signs Vital Signs Vital Signs: 02/15/24 20:17 02/15/24 20:09 02/15/24 20:55 Temperature 97.8 F 97.8 F Temperature Source Oral Oral Pulse Rate 84 83 Respiratory Rate 22 H 22 H Blood Pressure 177/99 H 177/99 H Blood Pressure Mean 125 125 Pulse Ox 98 98 96 Oxygen Delivery Method Room Air Room Air Room Air 02/15/24 21:00 Temperature Temperature Source Pulse Rate 81 Respiratory Rate 20 H Blood Pressure 155/96 H Blood Pressure Mean 115 Pulse Ox 95 Oxygen Delivery Method Room Air Weight Weight: 197 lb 1.492 oz Body Mass Index (BMI) 31.8 Physical Exam Const alert, oriented x3, no apparent distress, average body habitus and healthy appearing General Appearance: cooperative HEENT normocephalic, head/scalp atraumatic, hearing grossly normal bilaterally and moist oral mucous membranes Eyes PERRL and EOMs intact bilaterally Neck no lymphadenopathy and supple Resp normal respiratory effort, no retractions, no use of accessory muscles and clearto auscultation bilaterally Cardio regular rate and regular rhythm GI normal to inspection, nondistended, normoactive bowel sounds, soft to palpation,non-tender and non-distended Extremity normal to inspection, full ROM and no clubbing, cyanosis or edema Skin Skin Narrative: Patient has no evidence of abscess, rash or jaundice. Neuro oriented x3, CN's II-XII intact bilaterally, moves all extremities and no focal motor deficits Sensorium / Orientation: awake, alert, oriented to person, oriented to place andoriented to time Speech: speech normal Motor Exam: strength 5/5 throughout Psych affect normal Results Medical Records Data Attestation: I reviewed the patient's medical records Lab / Micro Data Attestation: I reviewed the patient's lab results. 02/15/24 20:45 02/15/24 20:45 Labs: Laboratory Results - last 24 hr 02/15/24 20:45: WBC 6.3, RBC 4.56 L, Hgb 13.3, Hct 39.4 L, MCV 86.4, MCH 29.2, MCHC 33.8, RDW Std Deviation 43.7, RDW Coeff of Donaldo 13.8, Plt Count 184, MPV 11.1, Immature Gran % (Auto) 0.300, Neut % (Auto) 56.5, Lymph % (Auto) 27.4, [place] % (Auto) 11.5 H, Eos % (Auto) 3.5, Baso % (Auto) 0.8, Absolute Neuts (auto)3.6, Absolute Lymphs (auto) 1.74, Nucleated RBC % 0, Sodium 144, Potassium 3.5, Chloride 113 H, Carbon Dioxide 28.0, Anion Gap 3 L, BUN 30 H, Creatinine 0.81, Estim Creat Clear Calc 96.49, Est GFR (MDRD) Af Amer 123, Est GFR (MDRD) Non-Af 102, BUN/Creatinine Ratio 37.1 H, Glucose 122 H, Calcium 9.0, Troponin I High Sens 14 Imaging [facility] Imaging Services [address] [place] [address] CTA Head AND Neck W/ Contrast MR#: [id number] Acct: [id number] Name: GIANFRANCO PLATA Rep #: [id number] : 1960 M 63 From: Fabricio Poe MD PCP: Dr. Aime Mclean MD Status: ADM ARY Study: CTA Head AND Neck W/ Contrast Date of Exam: 02/15/24 Exam# [id number] Ordering Dr: Belle Mccoy DO ADDENDUM by Dr. Fabricio Poe MD on 02/16/24 at 0056 EXAM: CT ANGIOGRAPHY HEAD AND NECK WITHOUT AND WITH INTRAVENOUS CONTRAST CLINICAL INDICATION: persistant headache wiht amaurosis TECHNIQUE: [place] of Aj/head and neck CT angiography protocol performed without and with intravenous contrast. This CT exam was performed using one or more of the following dose reduction techniques: automated exposure control, adjustment of the mA and/or kV according to patient size, and/or use of iterative reconstruction technique. MIP reconstructed images were created and reviewed. CONTRAST: 100 cc of Isovue-370 IV. RADIATION DOSE: CTDIvol = 26.89 mGy, DLP = 1502.64 mGy-cm COMPARISON: No relevant prior studies available. FINDINGS: HEAD: RIGHT ANTERIOR CEREBRAL ARTERY: Unremarkable. No occlusion or significant stenosis. Anterior communicating artery is present. No aneurysm. RIGHT MIDDLE CEREBRAL ARTERY: Unremarkable. No occlusion or significant stenosis. No aneurysm. RIGHT POSTERIOR CEREBRAL ARTERY: Unremarkable. No occlusion or significant stenosis. No aneurysm. RIGHT INTRACRANIAL INTERNAL CAROTID ARTERY: Mild atherosclerotic changes right intracavernous internal carotid artery without hemodynamic significant stenosis. No dissection or occlusion. RIGHT INTRACRANIAL VERTEBRAL ARTERY: Unremarkable. No significant stenosis. No dissection or occlusion. LEFT ANTERIOR CEREBRAL ARTERY: Unremarkable. No occlusion or significant stenosis. No aneurysm. LEFT MIDDLE CEREBRAL ARTERY: Unremarkable. No occlusion or significant stenosis. No aneurysm. LEFT POSTERIOR CEREBRAL ARTERY: Unremarkable. No occlusion or significant stenosis. No aneurysm. LEFT INTRACRANIAL INTERNAL CAROTID ARTERY: Unremarkable. No significant stenosis. No dissection or occlusion. LEFT INTRACRANIAL VERTEBRAL ARTERY: Unremarkable. No significant stenosis. No dissection or occlusion. BASILAR ARTERY: Unremarkable. No occlusion or significant stenosis. No aneurysm. OTHER VASCULATURE: No vascular malformation. BRAIN AND EXTRA-AXIAL SPACES: Unremarkable. No intra- or extra-axial hemorrhage. No evidence of acute infarct. No intracranial mass or mass effect. There is preservation of the villagomez/white matter interface. Posterior fossa structures are unremarkable. Ventricles are appropriate for age. No hydrocephalus. Basal cisterns are patent. SINUSES: Unremarkable as visualized. Clear. MASTOID AIR CELLS: Unremarkable as visualized. Clear. ORBITS: Visualized globes, extraocular muscles, optic nerves and retrobulbar fat appear unremarkable. NECK: RIGHT COMMON CAROTID ARTERY: Unremarkable. No significant stenosis. No dissection or occlusion. 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 RIGHT EXTERNAL CAROTID ARTERY: Unremarkable. No occlusion. RIGHT EXTRACRANIAL VERTEBRAL ARTERY: Unremarkable. No significant stenosis. No dissection or occlusion. LEFT COMMON CAROTID ARTERY: Unremarkable. No significant stenosis. No dissection or occlusion. LEFT EXTRACRANIAL INTERNAL CAROTID ARTERY: Moderate atherosclerotic disease involving the left carotid bulb with approximately 35% diameter stenosis. No dissection or occlusion. LEFT EXTERNAL CAROTID ARTERY: Unremarkable. No occlusion. LEFT EXTRACRANIAL VERTEBRAL ARTERY: Unremarkable. No significant stenosis. No dissection or occlusion. BRACHIOCEPHALIC AND SUBCLAVIAN ARTERIES: Unremarkable as visualized. No occlusion or significant stenosis. LUNG APICES: Unremarkable as visualized. HEAD and NECK: BONES/JOINTS: Unremarkable. No discrete lytic or blastic abnormalities. SOFT TISSUES: Unremarkable. CAROTID STENOSIS REFERENCE USING NASCET CRITERIA: % ICA stenosis = (1 - narrowest ICA diameter/diameter of distal cervical ICA) x 100. Mild - <50% stenosis. Moderate - 50-69% stenosis. Severe - 70-94% stenosis. Near occlusion - 95-99% stenosis. Occluded - 100% stenosis. 02/16/24 0056 Date cc: Dr. Aime Mclean MD; Dr. Belle Mccoy DO ~* Signed ADDENDUM by Dr. Fabricio Poe MD on 02/16/[address]/CTA Head AND Neck W/ Contrast IMPRESSION: 1. 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 2. Moderate atherosclerotic disease involving the left carotid bulb with approximately 35% diameter stenosis. 3. Mild atherosclerotic changes right intracavernous internal carotid artery without hemodynamic significant stenosis. N.B. : The above Results were Read Back by Fabricio Poe MD to Leo Garcia DO, and understanding confirmed on 02/16/2024 01:04:07 (ET). Electronically Signed: Fabricio Poe MD at 0:56 EDT , 02/16/24 0111 Date cc: Dr. Aime Mclean MD; Dr. Remus Ungur, DO ~* Signed We are attempting to reach an attending provider to discuss findings. An addendum with communication details will be sent when the communication is complete. EXAM: CT ANGIOGRAPHY HEAD AND NECK WITHOUT AND WITH INTRAVENOUS CONTRAST CLINICAL INDICATION: persistant headache wiht amaurosis TECHNIQUE: [place] of Aj/head and neck CT angiography protocol performed without and with intravenous contrast. This CT exam was performed using one or more of the following dose reduction techniques: automated exposure control, adjustment of the mA and/or kV according to patient size, and/or use of iterative reconstruction technique. MIP reconstructed images were created and reviewed. CONTRAST: 100 cc of Isovue-370 IV. RADIATION DOSE: CTDIvol = 26.89 mGy, DLP = 1502.64 mGy-cm COMPARISON: No relevant prior studies available. FINDINGS: HEAD: RIGHT ANTERIOR CEREBRAL ARTERY: Unremarkable. No occlusion or significant stenosis. Anterior communicating artery is present. No aneurysm. RIGHT MIDDLE CEREBRAL ARTERY: Unremarkable. No occlusion or significant stenosis. No aneurysm. RIGHT POSTERIOR CEREBRAL ARTERY: Unremarkable. No occlusion or significant stenosis. No aneurysm. RIGHT INTRACRANIAL INTERNAL CAROTID ARTERY: Mild atherosclerotic changes right intracavernous internal carotid artery without hemodynamic significant stenosis. No dissection or occlusion. RIGHT INTRACRANIAL VERTEBRAL ARTERY: Unremarkable. No significant stenosis. No dissection or occlusion. LEFT ANTERIOR CEREBRAL ARTERY: Unremarkable. No occlusion or significant stenosis. No aneurysm. LEFT MIDDLE CEREBRAL ARTERY: Unremarkable. No occlusion or significant stenosis. No aneurysm. LEFT POSTERIOR CEREBRAL ARTERY: Unremarkable. No occlusion or significant stenosis. No aneurysm. LEFT INTRACRANIAL INTERNAL CAROTID ARTERY: Unremarkable. No significant stenosis. No dissection or occlusion. LEFT INTRACRANIAL VERTEBRAL ARTERY: Unremarkable. No significant stenosis. No dissection or occlusion. BASILAR ARTERY: Unremarkable. No occlusion or significant stenosis. No aneurysm. OTHER VASCULATURE: No vascular malformation. BRAIN AND EXTRA-AXIAL SPACES: Unremarkable. No intra- or extra-axial hemorrhage. No evidence of acute infarct. No intracranial mass or mass effect. There is preservation of the villagomez/white matter interface. Posterior fossa structures are unremarkable. Ventricles are appropriate for age. No hydrocephalus. Basal cisterns are patent. SINUSES: Unremarkable as visualized. Clear. MASTOID AIR CELLS: Unremarkable as visualized. Clear. ORBITS: Visualized globes, extraocular muscles, optic nerves and retrobulbar fat appear unremarkable. NECK: RIGHT COMMON CAROTID ARTERY: Unremarkable. No significant stenosis. No dissection or occlusion. 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 RIGHT EXTERNAL CAROTID ARTERY: Unremarkable. No occlusion. RIGHT EXTRACRANIAL VERTEBRAL ARTERY: Unremarkable. No significant stenosis. No dissection or occlusion. LEFT COMMON CAROTID ARTERY: Unremarkable. No significant stenosis. No dissection or occlusion. LEFT EXTRACRANIAL INTERNAL CAROTID ARTERY: Moderate atherosclerotic disease involving the left carotid bulb with approximately 35% diameter stenosis. No dissection or occlusion. LEFT EXTERNAL CAROTID ARTERY: Unremarkable. No occlusion. LEFT EXTRACRANIAL VERTEBRAL ARTERY: Unremarkable. No significant stenosis. No dissection or occlusion. BRACHIOCEPHALIC AND SUBCLAVIAN ARTERIES: Unremarkable as visualized. No occlusion or significant stenosis. LUNG APICES: Unremarkable as visualized. HEAD and NECK: BONES/JOINTS: Unremarkable. No discrete lytic or blastic abnormalities. SOFT TISSUES: Unremarkable. CAROTID STENOSIS REFERENCE USING NASCET CRITERIA: % ICA stenosis = (1 - narrowest ICA diameter/diameter of distal cervical ICA) x 100. Mild - <50% stenosis. Moderate - 50-69% stenosis. Severe - 70-94% stenosis. Near occlusion - 95-99% stenosis. Occluded - 100% stenosis. CT/CTA Head AND Neck W/ Contrast IMPRESSION: 1. 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 2. Moderate atherosclerotic disease involving the left carotid bulb with approximately 35% diameter stenosis. 3. Mild atherosclerotic changes right intracavernous internal carotid artery without hemodynamic significant stenosis. Electronically Signed: Fabricio Poe MD at 0:56 EDT , CC: Dr. Aime Mclean MD; Dr. Belle Mccoy DO ~ [employer] Foreman: Signed [facility] Imaging Services [address] [place] [id number] CTA Chest W/WO Contrast MR#: [id number] Acct: [id number] Name: GIANFRANCO PLATA Rep #: [id number] : 1960 M 63 From: Fabricio Poe MD PCP: Dr. Aime Mclean MD Status: ADM ARY Study: CTA Chest W/WO Contrast Date of Exam: 02/16/24 Exam# [id number] Ordering Dr: Adryan Cabrales DO EXAM: CT ANGIOGRAPHY CHEST WITHOUT AND WITH INTRAVENOUS CONTRAST CLINICAL INDICATION: Elevated D-dimer plus chest pain. Evaluate for PE TECHNIQUE: Helically acquired angiography images were obtained of the chest without and with intravenous contrast. This CT exam was performed using one or more of the following dose reduction techniques: automated exposure control, adjustment of the mA and/or kV according to patient size, and/or use of iterative reconstruction technique. MIP reconstructed images were created and reviewed. CONTRAST: 100 cc of Isovue-370 IV. RADIATION DOSE: CTDIvol = 11.74 mGy, DLP = 475.47 mGy-cm COMPARISON: No relevant prior studies available. FINDINGS: PULMONARY ARTERIES: Unremarkable. Normal in caliber. No evidence of pulmonary embolism. AORTA: Unremarkable. Normal in caliber. No evidence of dissection. GREAT VESSELS OF AORTIC ARCH: Unremarkable. Normal in caliber. No evidence of dissection. LUNGS AND PLEURAL SPACES: Unremarkable. No mass. No consolidation or edema. No pleural effusion or thickening. No pneumothorax. HEART: Coronary artery calcifications. Heart size is normal. No pericardial effusion. MEDIASTINUM: Small hiatal hernia. No mediastinal or hilar adenopathy. Esophagus is unremarkable. THYROID: Unremarkable. No thyroid lesions. BONES/JOINTS: Unremarkable. No suspicious lytic or blastic abnormality. KIDNEYS AND URETERS: Partially visualized left nephrolithiasis. CT/CTA Chest W/WO Contrast IMPRESSION: 1. No pulmonary embolism or dissection. 2. No acute cardiopulmonary abnormality. 3. Small hiatal hernia. 4. Partially visualized left nephrolithiasis. 5. Coronary artery disease. Electronically Signed: Fabricio Poe MD at 2:56 EDT , CC: Dr. Aime Mclean MD; Dr. Adryan Cabrales, DO ~ [employer]man: Signed Assessment & Plan Assessment/Plan (1) Chest pain: QUALIFIERS: Chest pain type: unspecified Qualified Code(s): R07.9- Chest pain, unspecified (2) Hypertensive urgency: (3) Amaurosis fugax of right eye: (4) Headache: QUALIFIERS: Headache chronicity pattern: episodic headache Headache type: unspecified Intractability: not intractable Qualified Code(s): R51.9 - Headache, unspecified (5) History of hypercholesterolemia: (6) Nicotine abuse: (7) D-dimer, elevated: PLAN: Plan 1. Chest pain - Admit to CDU under observation status. Serialize troponin. Check echocardiogram to evaluate LVEF. Continue aspirin and as needed sublingual nitroglycerin. Checked D-dimer which was borderline positive but with negative CTA of the chest. Give Tylenol as needed mild to moderate (level 1-5 out of 10) pain or fever. Give morphine IV as needed for severe (level 6-10out of 10) pain. 2. Hypertensive urgency with blood pressure of 191/93 mmHg present on admissionwith associated headache and recent amaurosis fugax of the right eye complicating #1 - Continue home medications as previous plus give hydralazine IVevery 6 hours as needed for systolic blood pressure greater than 160 mmHg. Checked CTA of the head and neck with stroke protocol to evaluate for possible carotid stenosis and/or evidence of CVA with short segment complete occlusion ofthe right carotid bulb over a length of approximately ~1.3 cm and moderate atherosclerotic disease involving the left carotid bulb with ~35% diameter stenosis. Finally, we will consult vascular surgeon on-call to see this patienton rounds in the a.m. for further recommendations regarding possible carotid endarterectomy with help appreciated in advance. 3. Obesity; with BMI of 31.8 this admission with progressively worsening fatigue over the past few weeks - Weight loss will be recommended. Also due to patient's ongoing easy fatigability and dyspnea on exertion we will check TSH. 4. Hyperlipidemia - Continue statin and check lipid profile in light of #1. 5. Tobacco abuse - Tobacco cessation will be strongly encouraged with nicotine patch offered to control cravings. 6. Osteoarthritis - Give Tylenol as needed. 7. DVT prophylaxis - Lovenox 40 mg sq daily. Total time: Approximately 85 minutes. Update: Patient underwent CTA of the head and neck with IV contrast which revealed short segment complete occlusion of the right carotid bulb over a length of ~1.3 cm along with moderate atherosclerotic disease along the left carotid bulb with approximately 35% diameter stenosis. Therefore, consultation was placed for vascular surgery to evaluate this patient in the a.m. for furtherrecommendations with help appreciated in advance. Charges/Coding Visit Charges OBSV E&M: 05567 Observ/hosp same date L3 02/16/24 0423 <Electronically signed by Adryan Cabrales DO> Cosigner Signature (if applicable): CC: Dr. Aime Mclean MD; Dr. Adryan Cabrales DO~ Signed [facility] Work Phone: Discharge summary 02-16-2024 Note Date & Type Note Facility 02-16-2024 Discharge summary Note Date/Time February 15, 2024 8:33pm [facility] Medical Records Department [address] [place] [address] Emergency Department Summary 02/15/24 MR#: [id number] Acct: [id number] Name: GIANFRANCO PLATA Rep #:[id number] : 1960 63 From: Belle Mccoy DO PCP: Dr. Aime Mclean MD Status :ADM ARY Location: [place] [address] HPI History of Present Illness Chief Complaint: Chest Pain Detail of Chief Complaint: Chest pain Informant: patient Narrative Narrative: Patient presents to the emergency department complaint of chest discomfort that started prior to arrival in the emergency department. Patient states that he was sitting watching TV when he just started not feeling well. He told his family member he was to go lay down and then started having chest discomfort that he describes as a heaviness and he could hear his heartbeat in his left ear. EMS was called. Symptoms lasted about half an hour or so. Currently his pain-free. He had some intermittent episodes like this before. He is also describing some fatigue over the last several months. He describes some exertional dyspnea. Patient denies recent travel or surgery. [facility] Medical History HTN (hypertension) Hypercholesterolemia Home Medications aspirin 81 mg tablet,delayed release 81 mg PO DAILY@0800 02/11/18 [Rx Last Taken Unknown] atorvastatin 20 mg tablet 20 mg PO DAILY 02/15/24 [History Last Taken Unknown] hydrochlorothiazide 25 mg tablet 25 mg PO DAILY 02/15/24 [History Last Taken Unknown] losartan 50 mg tablet 100 mg PO DAILY 02/15/24 [History Last Taken Unknown] metoprolol succinate 50 mg tablet,extended release 24 hr 25 mg PO BID 02/15/24 [History Last Taken Unknown] Allergy/AdvReac Type Severity Reaction Status Date / Time No Known Allergies Allergy Verified 02/15/24 20:56 Social History Smoking Status: Former smoker ROS ROS ED Review of Systems ROS Unobtainable: other Constitutional Constitutional ED: Reports lethargy; Denies chills, fever(s), sweats or weight loss Eyes Eyes: Denies blurry vision, change in vision or diplopia ENT ENT ED: Denies rhinorrhea or sore throat Cardiovascular Cardiovascular: Reports chest pain; Denies orthopnea or racing heartbeat Respiratory/Chest Respiratory/Chest: Reports dyspnea and dyspnea on exertion; Denies cough, orthopnea or sputum Gastrointestinal Gastrointestinal: Denies abdominal pain, diarrhea, nausea or vomiting Genitourinary Genitourinary ED: Denies dysuria, hematuria or urinary frequency Musculoskeletal Musculoskeletal: Denies arthralgias, back pain, myalgias or neck pain Integumentary Denies abscess, Abrasions or rash Neurologic Neurologic: Denies headache(s) or weakness Psychiatric Psychiatric: Denies anxiety, depression or suicidal thoughts Endocrine Endocrinology: Denies polydipsia, polyphagia or polyuria Hematologic/Lymphatic Hematologic/Lymphatic: Denies easy bleeding, easy bruising or lymphadenopathy Allergic/Immunologic Allergic/Immunologic ED: Denies mouth swelling, tongue swelling or urticaria EXAM Physical Exam Const Vital Signs: 02/15/24 20:17 02/15/24 20:09 02/15/24 20:55 Temperature 97.8 F 97.8 F Temperature Source Oral Oral Pulse Rate 84 83 Respiratory Rate 22 H 22 H Blood Pressure 177/99 H 177/99 H Blood Pressure Mean 125 125 Pulse Ox 98 98 96 Oxygen Delivery Method Room Air Room Air Room Air 02/15/24 21:00 Temperature Temperature Source Pulse Rate 81 Respiratory Rate 20 H Blood Pressure 155/96 H Blood Pressure Mean 115 Pulse Ox 95 Oxygen Delivery Method Room Air Positive well nourished and well developed General Appearance ED: well developed and NAD HEENT Reports TM's clear and moist mucous membranes normocephalic and atraumatic; Negative for trauma or tenderness Tympanic Membrane ED: Yes TM's clear Eyes PERRL and EOMs intact bilaterally General Eye ED: Negative for pale conjunctiva or scleral icterus Neck no lymphadenopathy, supple and no JVD General: Negative for tenderness Chest Wall inspection of chest normal and palpation of chest normal Chest: Negative for tenderness Resp normal respiratory effort and clear to auscultation bilaterally Effort and Inspection: Negative for respiratory distress or pain with movement Auscultation: Negative for rhonchi, wheezes or diminished lung sounds Cardio regular rate, regular rhythm, S1 normal heart sound, S2 normal heart sound and no murmurs Peripheral Pulses: pulses 2+ throughout GI normal to inspection, nondistended, normoactive bowel sounds, soft to palpation,non-tender, non-distended and no masses Back/Spine no CVA tenderness and no thoracic nor lumbar tenderness Extremity normal to inspection General Extremety ED: Negative for edema General Extremity: Negative for edema Neuro oriented x3, CN's II-XII intact bilaterally, no sensory deficits noted and gait normal Sensorium / Orientation: awake, alert, oriented to person, oriented to place andoriented to time Motor Exam: strength 5/5 throughout and strength abnormal Psych mental status grossly normal Skin no rashes or lesions noted and no wounds Heart Score History: Moderately Suspicious ECG: Nonspecific Repolarization Age: >45 - <65 years Risk Factors: >/= 3 Risk Factors or History of CAD Troponin: </= Normal Limit Score: 5 MDM MDM MDM Narrative Medical decision making narrative: Patient presents with chest discomfort radiating towards his neck and ongoing fatigue for several months. In the differential would be acute coronary syndrome versus less likely PE or GI etiology. IV line established on arrival. EKG obtained showed sinus rhythm with ventricular rate of 83 bpm with occasionalPVCs and nonspecific ST changes. CBC with differential was unremarkable. Chemistries unremarkable. Troponin normal at 14. Chest x-ray 1 view obtained interpreted by myself as no evidence of acute infiltrate or pneumothorax or acute disease process. Patient's heart score is a 5. Recommended admission forcardiac rule out. Will discuss with hospitalist to evaluate patient for admission. Patient has taken 2 baby aspirin's today therefore no aspirin was given. Lab Data Attestation: I reviewed the patient's lab results. Labs: Laboratory Results - last 24 hr 02/15/24 20:45 WBC 6.3 RBC 4.56 L Hgb 13.3 Hct 39.4 L MCV 86.4 MCH 29.2 MCHC 33.8 RDW Std Deviation 43.7 RDW Coeff of Donaldo 13.8 Plt Count 184 MPV 11.1 Immature Gran % (Auto) 0.300 Neut % (Auto) 56.5 Lymph % (Auto) 27.4 [place] % (Auto) 11.5 H Eos % (Auto) 3.5 Baso % (Auto) 0.8 Absolute Neuts (auto) 3.6 Absolute Lymphs (auto) 1.74 Nucleated RBC % 0 Sodium 144 Potassium 3.5 Chloride 113 H Carbon Dioxide 28.0 Anion Gap 3 L BUN 30 H Creatinine 0.81 Estim Creat Clear Calc 96.49 Est GFR (MDRD) Af Amer 123 Est GFR (MDRD) Non-Af 102 BUN/Creatinine Ratio 37.1 H Glucose 122 H Calcium 9.0 Troponin I High Sens 14 Radiography Diagnostic Testing: Clinical Impression(s) from Imaging Studies Chest X-Ray 02/15/24 20:42 IMPRESSION: Normal x-ray examination of the chest. Electronically Signed: Nabor Amezcua MD at 21:38 EDT , 1 view chest x-ray obtained interpreted by myself as no evidence of infiltrate or pneumothorax or acute disease process. EKG Initial EKG: Attestation: I personally reviewed and interpreted this EKG as follows: Comments: Sinus rhythm with rate of 83 bpm with PVCs and nonspecific ST changes Discharge Plan Dx/Rx/DC Orders Clinical Impression: History of hypercholesterolemia, Chest pain, HTN (hypertension) Disposition Disposition: Acute Care Hospital [facility] What to do if you have Problems For any increased pain, shortness of breath, bleeding, nausea or vomiting, chestpain, or any unexpected problems, contact your Primary Care Provider. Call [facility] ([phone]) or report to the closest Emergency Room. Call 911 if necessary. 02/15/24 2310 <Electronically signed by Belle Mccoy DO> Cosigner Signature (if applicable): CC: Dr. Aime Mclean MD ~ Signed ADDENDUM by Dr. Leo Garcia MD on 02/15/24 at 2346 Took over care of this patient while waiting to go upstairs to the hospital. His D-dimer returned at 0.52 which is slightly in the abnormal range, however when corrected for his age, it is powered enough and sensitive enough to rule out pulmonary embolus without the need for further imaging emergently. 02/15/24 2346<Electronically signed by Leo Garcia MD> Cosigner Signature (if applicable): cc: Dr. Aime Mclean MD ~* Signed [facility] Work Phone: Discharge summary 02-15-2024 Note Date & Type Note Facility 02-15-2024 Discharge summary Note Date/Time February 15, 2024 8:33pm [facility] Medical Records Department [address] [place] [address] [place] [address] Emergency Department Summary 02/15/24 MR#: [id number] Acct: [id number] Name: GIANFRANCO PLATA Rep #:[id number] : 1960 63 From: Belle Mccoy DO PCP: Dr. Aime Mclean MD Status :ADM ARY Location: [place] [address] HPI History of Present Illness Chief Complaint: Chest Pain Detail of Chief Complaint: Chest pain Informant: patient Narrative Narrative: Patient presents to the emergency department complaint of chest discomfort that started prior to arrival in the emergency department. Patient states that he was sitting watching TV when he just started not feeling well. He told his family member he was to go lay down and then started having chest discomfort that he describes as a heaviness and he could hear his heartbeat in his left ear. EMS was called. Symptoms lasted about half an hour or so. Currently his pain-free. He had some intermittent episodes like this before. He is also describing some fatigue over the last several months. He describes some exertional dyspnea. Patient denies recent travel or surgery. [facility] Medical History HTN (hypertension) Hypercholesterolemia Home Medications aspirin 81 mg tablet,delayed release 81 mg PO DAILY@0800 02/11/18 [Rx Last Taken Unknown] atorvastatin 20 mg tablet 20 mg PO DAILY 02/15/24 [History Last Taken Unknown] hydrochlorothiazide 25 mg tablet 25 mg PO DAILY 02/15/24 [History Last Taken Unknown] losartan 50 mg tablet 100 mg PO DAILY 02/15/24 [History Last Taken Unknown] metoprolol succinate 50 mg tablet,extended release 24 hr 25 mg PO BID 02/15/24 [History Last Taken Unknown] Allergy/AdvReac Type Severity Reaction Status Date / Time No Known Allergies Allergy Verified 02/15/24 20:56 Social History Smoking Status: Former smoker ROS ROS ED Review of Systems ROS Unobtainable: other Constitutional Constitutional ED: Reports lethargy; Denies chills, fever(s), sweats or weight loss Eyes Eyes: Denies blurry vision, change in vision or diplopia ENT ENT ED: Denies rhinorrhea or sore throat Cardiovascular Cardiovascular: Reports chest pain; Denies orthopnea or racing heartbeat Respiratory/Chest Respiratory/Chest: Reports dyspnea and dyspnea on exertion; Denies cough, orthopnea or sputum Gastrointestinal Gastrointestinal: Denies abdominal pain, diarrhea, nausea or vomiting Genitourinary Genitourinary ED: Denies dysuria, hematuria or urinary frequency Musculoskeletal Musculoskeletal: Denies arthralgias, back pain, myalgias or neck pain Integumentary Denies abscess, Abrasions or rash Neurologic Neurologic: Denies headache(s) or weakness Psychiatric Psychiatric: Denies anxiety, depression or suicidal thoughts Endocrine Endocrinology: Denies polydipsia, polyphagia or polyuria Hematologic/Lymphatic Hematologic/Lymphatic: Denies easy bleeding, easy bruising or lymphadenopathy Allergic/Immunologic Allergic/Immunologic ED: Denies mouth swelling, tongue swelling or urticaria EXAM Physical Exam Const Vital Signs: 02/15/24 20:17 02/15/24 20:09 02/15/24 20:55 Temperature 97.8 F 97.8 F Temperature Source Oral Oral Pulse Rate 84 83 Respiratory Rate 22 H 22 H Blood Pressure 177/99 H 177/99 H Blood Pressure Mean 125 125 Pulse Ox 98 98 96 Oxygen Delivery Method Room Air Room Air Room Air 02/15/24 21:00 Temperature Temperature Source Pulse Rate 81 Respiratory Rate 20 H Blood Pressure 155/96 H Blood Pressure Mean 115 Pulse Ox 95 Oxygen Delivery Method Room Air Positive well nourished and well developed General Appearance ED: well developed and NAD HEENT Reports TM's clear and moist mucous membranes normocephalic and atraumatic; Negative for trauma or tenderness Tympanic Membrane ED: Yes TM's clear Eyes PERRL and EOMs intact bilaterally General Eye ED: Negative for pale conjunctiva or scleral icterus Neck no lymphadenopathy, supple and no JVD General: Negative for tenderness Chest Wall inspection of chest normal and palpation of chest normal Chest: Negative for tenderness Resp normal respiratory effort and clear to auscultation bilaterally Effort and Inspection: Negative for respiratory distress or pain with movement Auscultation: Negative for rhonchi, wheezes or diminished lung sounds Cardio regular rate, regular rhythm, S1 normal heart sound, S2 normal heart sound and no murmurs Peripheral Pulses: pulses 2+ throughout GI normal to inspection, nondistended, normoactive bowel sounds, soft to palpation,non-tender, non-distended and no masses Back/Spine no CVA tenderness and no thoracic nor lumbar tenderness Extremity normal to inspection General Extremety ED: Negative for edema General Extremity: Negative for edema Neuro oriented x3, CN's II-XII intact bilaterally, no sensory deficits noted and gait normal Sensorium / Orientation: awake, alert, oriented to person, oriented to place andoriented to time Motor Exam: strength 5/5 throughout and strength abnormal Psych mental status grossly normal Skin no rashes or lesions noted and no wounds Heart Score History: Moderately Suspicious ECG: Nonspecific Repolarization Age: >45 - <65 years Risk Factors: >/= 3 Risk Factors or History of CAD Troponin: </= Normal Limit Score: 5 MDM MDM MDM Narrative Medical decision making narrative: Patient presents with chest discomfort radiating towards his neck and ongoing fatigue for several months. In the differential would be acute coronary syndrome versus less likely PE or GI etiology. IV line established on arrival. EKG obtained showed sinus rhythm with ventricular rate of 83 bpm with occasionalPVCs and nonspecific ST changes. CBC with differential was unremarkable. Chemistries unremarkable. Troponin normal at 14. Chest x-ray 1 view obtained interpreted by myself as no evidence of acute infiltrate or pneumothorax or acute disease process. Patient's heart score is a 5. Recommended admission forcardiac rule out. Will discuss with hospitalist to evaluate patient for admission. Patient has taken 2 baby aspirin's today therefore no aspirin was given. Lab Data Attestation: I reviewed the patient's lab results. Labs: Laboratory Results - last 24 hr 02/15/24 20:45 WBC 6.3 RBC 4.56 L Hgb 13.3 Hct 39.4 L MCV 86.4 MCH 29.2 MCHC 33.8 RDW Std Deviation 43.7 RDW Coeff of Donaldo 13.8 Plt Count 184 MPV 11.1 Immature Gran % (Auto) 0.300 Neut % (Auto) 56.5 Lymph % (Auto) 27.4 Arenac % (Auto) 11.5 H Eos % (Auto) 3.5 Baso % (Auto) 0.8 Absolute Neuts (auto) 3.6 Absolute Lymphs (auto) 1.74 Nucleated RBC % 0 Sodium 144 Potassium 3.5 Chloride 113 H Carbon Dioxide 28.0 Anion Gap 3 L BUN 30 H Creatinine 0.81 Estim Creat Clear Calc 96.49 Est GFR (MDRD) Af Amer 123 Est GFR (MDRD) Non-Af 102 BUN/Creatinine Ratio 37.1 H Glucose 122 H Calcium 9.0 Troponin I High Sens 14 Radiography Diagnostic Testing: Clinical Impression(s) from Imaging Studies Chest X-Ray 02/15/24 20:42 IMPRESSION: Normal x-ray examination of the chest. Electronically Signed: Nabor Amezcua MD at 21:38 EDT , 1 view chest x-ray obtained interpreted by myself as no evidence of infiltrate or pneumothorax or acute disease process. EKG Initial EKG: Attestation: I personally reviewed and interpreted this EKG as follows: Comments: Sinus rhythm with rate of 83 bpm with PVCs and nonspecific ST changes Discharge Plan Dx/Rx/DC Orders Clinical Impression: History of hypercholesterolemia, Chest pain, HTN (hypertension) Disposition Disposition: Acute Care Hospital [facility] What to do if you have Problems For any increased pain, shortness of breath, bleeding, nausea or vomiting, chestpain, or any unexpected problems, contact your Primary Care Provider. Call [facility] ([phone]) or report to the closest Emergency Room. Call 911 if necessary. 02/15/24 2310 <Electronically signed by Belle Mccoy DO> Cosigner Signature (if applicable): CC: Dr. Aime Mclean MD ~ Signed ADDENDUM by Dr. Leo Garcia MD on 02/15/24 at 2346 Took over care of this patient while waiting to go upstairs to the hospital. His D-dimer returned at 0.52 which is slightly in the abnormal range, however when corrected for his age, it is powered enough and sensitive enough to rule out pulmonary embolus without the need for further imaging emergently. 02/15/24 2346<Electronically signed by Leo Garcia MD> Cosigner Signature (if applicable): cc: Dr. Aime Mclean MD ~* Signed [facility] Work Phone: Discharge summary Note Date & Type Note Facility Discharge summary Note Date/Time February 16, 2024 2:20pm [facility] Medical Records Department [address] [place] [address] Discharge Summary 02/16/24 1419 MR#: [id number] Acct: [id number] Name: GIANFRANCO PLATA Rep #:[id number] : 1960 63 From: Leeann Tiwari DO PCP: Dr. Aime cMlean MD Status :ADM ARY Location: [address] Date of Admission: 02/15/24 Date of Discharge: 02/16/24 Primary Care Physician: Dr. Aime Mclean MD Reason For Visit: CHEST PAIN Diagnosis Discharge Diagnosis (1) Chest pain: Status: Acute Code(s): R07.9 - Chest pain, unspecified Qualifiers: Chest pain type: unspecified Qualified Code(s): R07.9 - Chest pain, unspecified (2) Hypertensive urgency: Status: Acute Code(s): I16.0 - Hypertensive urgency (3) Amaurosis fugax of right eye: Status: Acute Code(s): G45.3 - Amaurosis fugax (4) Headache: Status: Acute Code(s): R51.9 - Headache, unspecified Qualifiers: Headache type: unspecified Headache chronicity pattern: episodic headache Intractability: not intractable Qualified Code(s): R51.9 - Headache, unspecified (5) History of hypercholesterolemia: Status: Acute Code(s): Z86.39 - Personal history of other endocrine, nutritional and metabolic disease (6) Nicotine abuse: Status: Chronic Code(s): Z72.0 - Tobacco use (7) D-dimer, elevated: Status: Acute Code(s): R79.89 - Other specified abnormal findings of blood chemistry Medications at Discharge Home Medications aspirin 81 mg tablet,delayed release 81 mg PO DAILY@0800 02/11/18 hydrochlorothiazide 25 mg tablet 25 mg PO DAILY 02/15/24 losartan 50 mg tablet 100 mg PO DAILY 02/15/24 metoprolol succinate 50 mg tablet,extended release 24 hr 25 mg PO BID 02/15/24 atorvastatin 80 mg tablet 80 mg PO QHS #30 tabs 02/16/24 isosorbide mononitrate 60 mg tablet,extended release 24 hr 60 mg PO DAILY #30 tabs 02/16/24 Hospital Course Procedures 2-D Echocardiogram, EKG and - (Chest x-ray/CTA head and neck/CTA chest/MRI brain) Summary of Care Provided Minutes Spent on Discharge: 40 Hospital Course: Mr. Plata is a 63-year-old white male who presented to the emergency departmentat [facility] on 02/15/2024 with chest pain. He is known historyof hypertension, hyperlipidemia, and previous tobacco abuse. He reported that his symptoms began about 2 hours prior to arrival at which time he developed chest pain that occurred while he was watching television. He described it as substernal and pressure-like with heaviness and moderate with radiating into hisleft neck. He reported he could hear his heartbeat in his left ear which happens intermittently and he feels like this occurs when his blood pressure is higher. He indicated his symptoms lasted about 30 minutes and he did not feel better after going to lie down so he called the squad to bring him in. He also had some severe intermittent headache with coinciding intermittent vision loss in his right eye in the last month. He is having no vision loss at this point and he was referred to an beverage specialist without any acute pathological changes noted. He also admitted to progressively worsening fatigue over the past several months with intermittent dyspnea on exertion. Upon presentation his temperature was 97.8, heart rate 84, blood pressure was 177/99, respiratory was 22 and oxygen saturations were 98% on room air. His CBC was unremarkable. His chemistry panel was overall unremarkable. He was slightly hyperglycemic with a blood glucose level of 122 and we did check a hemoglobin A1c which was found to be 5.6. His initial troponin was 14 with a repeat of 16-1/3 troponin of 26. His EKG had no ischemic changes. They did obtain a D-dimer which was slightly elevated 0.62 and a CTA of his chest was performed. This showed no PE or dissection, no acute cardiopulmonary abnormality, small hiatal hernia, partiallyvisualized left nephrolithiasis and coronary artery disease. His chest x-ray had no acute findings. With his headache and his amaurosis few gait previously aCTA of his head neck was performed and did show short segment complete occlusionof the right carotid bulb over a length of approximately 1.3 cm as well as moderate atherosclerotic disease in the left carotid bulb with approximately 35%diameter stenosis and mild atherosclerotic changes in the right intracavernous internal carotid artery without hemodynamic significant stenosis. A stress testwas performed and was negative for any inducible ischemia. We obtained an echocardiogram that showed an EF of 65% no significant diastolic dysfunction andtrivial mitral valve insufficiency. A TSH was obtained and within normal range. He had no chest pain or shortness of breath while he was getting a stress test. His lipid panel was performed and his LDL is not well-controlled given the above. LDL was noted to be 101 with a goal of less than 70. He was on 20 mg ofatorvastatin so we did increase this to 80 mg and suggested a repeat cholesterolpanel be obtained in 3 to 6 months. His blood pressure was also not well-controlled consistently greater than 130/80. He was already on HCTZ at maximal dose, losartan 100 mg, metoprolol 25 mg p.o. twice daily with heart rates in the60s to 70s so we decided to add isosorbide mononitrate 60 mg daily and I have advised him to follow-up with his primary care physician within the next week tohave a blood pressure assessment and hospital follow-up to see if he is better controlled with the addition of the isosorbide mononitrate. He was already taking aspirin 81 mg daily and this is to be continued. With the significant carotid artery stenosis found on the CTA of his head and neck we have asked him to follow-up with Dr. Gutierres in the outpatient setting and information was givento make an appointment to see him at first availability. With his ongoing fatigue I do question whether or not he may have some obstructive sleep apnea he isobese with a BMI of 31.3 and does have a shorter thicker neck with a Mallampati of 3. I have advised him to follow-up with the pulmonary office to obtain a referral for a sleep study to rule this out as a contributing factor. We did discuss that having an area of stress test is not 100% confirmation that he doesnot have any coronary issues and if he has any recurrent symptoms he needs to return to the hospital to be considered for cardiac catheterization. Prescriptions for his isosorbide mononitrate and his higher dose of atorvastatinwere sent to local pharmacy and he was able to be discharged home in stable condition on 02/16/2024. Discharge diagnoses: Chest pain Carotid artery stenosis Uncontrolled hypertension Hyperlipidemia Fatigue Possible obstructive sleep apnea History of tobacco abuse Obesity Physical Exam Const alert, oriented x3, no apparent distress, no limitations, healthy appearing and well nourished; Negative for average body habitus Constitutional Narrative: Obese, upper middle-aged, white male, sitting up in bed watching television, family at bedside, appears comfortable and nontoxic General Appearance: cooperative, comfortable, well kempt and well developed Orientation / Consciousness: awake, oriented to person, oriented to place and oriented to time Exam Limitations: no limitations Nutritional Appearance: obese HEENT normocephalic, head/scalp atraumatic, hearing grossly normal bilaterally and moist oral mucous membranes HEENT Narrative: Mallampati 3, no thrush Eyes PERRL, EOMs intact bilaterally and conjunctivae normal Eyes Narrative: No scleral icterus Neck no lymphadenopathy, supple and no carotid bruits Neck Narrative: Trachea midline, no thyroid enlargement Resp normal respiratory effort, no retractions, no use of accessory muscles and clearto auscultation bilaterally Resp Narrative: Diffusely diminished but clear Auscultation: Negative for rales, rhonchi or wheezes Cardio regular rate, regular rhythm, S1 normal heart sound, S2 normal heart sound, no murmurs, no rub, no gallops and no clicks GI normal to inspection, nondistended, normoactive bowel sounds, soft to palpation and non-tender Extremity no clubbing, cyanosis or edema Extremity Narrative: Pedal pulses are 2+, radial pulses are 2+ Skin no rashes or lesions noted, no wounds, skin turgor normal and no jaundice Neuro oriented x3, CN's II-XII intact bilaterally, moves all extremities and no focal motor deficits Speech: speech normal Psych affect normal Psych Narrative: Very pleasant, interacts appropriately Weight / BMI Weight Weight: 88 kg Body Mass Index (BMI) 31.3 ABG / Lab / Microbiology Data 02/16/24 03:00 02/16/24 03:00 Laboratory: Laboratory Results - last 24 hr 02/15/24 20:45: WBC 6.3, RBC 4.56 L, Hgb 13.3, Hct 39.4 L, MCV 86.4, MCH 29.2, MCHC 33.8, RDW Std Deviation 43.7, RDW Coeff of Donaldo 13.8, Plt Count 184, MPV 11.1, Immature Gran % (Auto) 0.300, Neut % (Auto) 56.5, Lymph % (Auto) 27.4, Arenac % (Auto) 11.5 H, Eos % (Auto) 3.5, Baso % (Auto) 0.8, Absolute Neuts (auto)3.6, Absolute Lymphs (auto) 1.74, Nucleated RBC % 0, Sodium 144, Potassium 3.5, Chloride 113 H, Carbon Dioxide 28.0, Anion Gap 3 L, BUN 30 H, Creatinine 0.81, Estim Creat Clear Calc 96.49, Est GFR (MDRD) Af Amer 123, Est GFR (MDRD) Non-Af 102, BUN/Creatinine Ratio 37.1 H, Glucose 122 H, Hemoglobin A1c 5.6, Calcium 9.0, Troponin I High Sens 14 02/15/24 22:50: Troponin I High Sens 16 02/15/24 23:15: D-Dimer Quant (PE/DVT) 0.52 H* 02/16/24 03:00: WBC 6.5, RBC 4.38 L, Hgb 12.8 L, Hct 38.1 L, MCV 87.0, MCH 29.2,MCHC 33.6, RDW Std Deviation 43.8, RDW Coeff of Donaldo 13.7, Plt Count 192, MPV 11.7, Immature Gran % (Auto) 0.300, Neut % (Auto) 70.1 H, Lymph % (Auto) 19.8, Arenac % (Auto) 8.1, Eos % (Auto) 1.1, Baso % (Auto) 0.6, Absolute Neuts (auto) 4.6, Absolute Lymphs (auto) 1.29, Nucleated RBC % 0, Sodium 141, Potassium 3.7, Chloride 111 H, Carbon Dioxide 24.0, Anion Gap 6, BUN 23 H, Creatinine 0.68 L, Estim Creat Clear Calc 114.06, Est GFR (MDRD) Af Amer 149, Est GFR (MDRD) Non-Af123, BUN/Creatinine Ratio 33.6 H, Glucose 107 H, Calcium 8.9, Phosphorus 2.7, Magnesium 1.7, Troponin I High Sens 26, Triglycerides 40, Cholesterol 145, LDL Cholesterol 101, VLDL Cholesterol 8, HDL Cholesterol 36 L Radiography Diagnostic Testing: Radiology Impression Chest X-Ray 02/15/24 20:42 IMPRESSION: Normal x-ray examination of the chest. Electronically Signed: Nabor Amezcua MD at 21:38 EDT , Head/Neck CTA 02/15/24 22:06 IMPRESSION: 1. 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 2. Moderate atherosclerotic disease involving the left carotid bulb with approximately 35% diameter stenosis. 3. Mild atherosclerotic changes right intracavernous internal carotid artery without hemodynamic significant stenosis. Electronically Signed: Fabricio Poe MD at 0:56 EDT , ADDENDUM: 02/16/24 0111 IMPRESSION: 1. 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 2. Moderate atherosclerotic disease involving the left carotid bulb with approximately 35% diameter stenosis. 3. Mild atherosclerotic changes right intracavernous internal carotid artery without hemodynamic significant stenosis. N.B. : The above Results were Read Back by Fabricio Poe MD to Leo Garcia DO, and understanding confirmed on 02/16/2024 01:04:07 (ET). Electronically Signed: Fabricio Poe MD at 0:56 EDT , Echocardiogram 02/16/24 01:25 Interpretation Summary The estimated ejection fraction is 65 %. No evidence for diastolic dysfunction. Trivial mitral valve insufficiency. Ordering Physician: Adryan Cabrales Referring Physician: Aime Mclean MD Performed By: Geovanna Agarwal RDCS Chest CTA 02/16/24 01:58 IMPRESSION: 1. No pulmonary embolism or dissection. 2. No acute cardiopulmonary abnormality. 3. Small hiatal hernia. 4. Partially visualized left nephrolithiasis. 5. Coronary artery disease. Electronically Signed: Fabricio Poe MD at 2:56 EDT , Brain MRI 02/16/24 07:04 IMPRESSION: Involutional changes of the brain, as described above. No acute infarct. Electronically Signed: Nabor Amezcua MD at 13:02 EDT , D/C Instructions Discharge Diet: Low fat / Low cholesterol Discharge Activity: Return to Normal Activity Return to work on: 02/18/24 Meaningful Use Info Meaningful Use Diagnoses (Choose all that apply): None applicable Discharge Plan Admission Admit Date/Time: 02/15/24 21:35 Primary Reason for Your Visit: Chest pain Attending Provider: Leeann Tiwari Primary Care Provider: Aime Mclean Consulting Providers: Adryan Cabrales Instructions Additional Instructions / Restrictions: 1. Your LDL goal which is your bad cholesterol is less than 70. We found it jose 101 so we will increase your atorvastatin from 20 mg to 80 mg. You will needa repeat cholesterol panel in 3 to 6 months 2. Your blood pressure goal is less than 130/80 and years was consistently elevated. We will continue what you currently are on and add isosorbide mononitrate 60 mg daily. You will need to have your blood pressure checked by your primary care physician to ensure that your blood pressure is at goal. If not you may need changes in your blood pressure. 3. Your stress test, echocardiogram and MRI were unremarkable. You are still having fatigue so we did check a thyroid study and your thyroid appears to be functioning well. I would suggest you get a study for sleep apnea as this can contribute to significant fatigue during the day. Please call to the pulmonary office below to get scheduled for a sleep study. 4. As per our discussion prior to your discharge, a negative stress test is [id number] proof that there is no issue with your heart. If you have reoccurring chest pain please represent to the emergency department as you may need to be considered for cardiac catheterization. Discharge Orders/Prescriptions Prescriptions: New atorvastatin 80 mg tablet 80 mg PO QHS Qty: 30 2RF isosorbide mononitrate 60 mg tablet extended release 24 hr 60 mg PO DAILY Qty: 30 2RF Continued aspirin 81 MG tablet 81 mg PO DAILY@0800 0RF losartan 50 MG tablet 100 mg PO DAILY Patient Comments: blood pressure metoprolol succinate 50 MG tablet extended release 24 hr 25 mg PO BID hydrochlorothiazide 25 mg tablet 25 mg PO DAILY Discontinued atorvastatin 20 mg tablet 20 mg PO DAILY Referrals / Follow Up: Aime Mclean MD [Primary Care Provider] - Within 1 Week Anant Gutierres MD [Med Staff - Active Staff] - See Referral Note (Please call office to schedule an appointment to be seen at Dr. Gutierres's first availability for the blockages in your carotid arteries) Kisha Loyd NP, [facility] [Med Staff - Adv Practice Prof] - See Referral Note (Please call to get it set up for a sleep study as soon as they can get you in to be evaluated as this may be the reason for your fatigue) Disposition Disposition (needs filled in before D/C Order can be placed): Home, Self Care Charges/Coding Visit Charges Inpatient E&M: 74017 Disch Hosp >30min 02/16/24 1442 <Electronically signed by Leeann Tiwari DO> Cosigner Signature (if applicable): CC: COLLATERAL SPECIALIST-Mu Loyd; Dr. Aime Mclean MD; Dr. Anant Gutierres MD; Dr. Leeann Tiwari DO~ Signed [facility] Work Phone: Evaluation note Note Date & Type Note Facility Evaluation note No assessment information availa ble [facility] Work Phone: Evaluation note Note Date & Type Note Facility Evaluation note Diagnosis Onset Date Amaurosis fugax of right eye acute Chest pain acute Headache acute History of hypercholesterolemia acute Hypertensive urgency acute HTN (hypertension) chronic Nicotine abuse chronic [facility] Work Phone: Evaluation note Note Date & Type Note Facility Evaluation note Diagnosis Onset Date Amaurosis fugax of right eye acute Chest pain acute D-dimer, elevated acute Headache acute History of hypercholesterolemia acute Hypertensive urgency acute HTN (hypertension) chronic Nicotine abuse chronic [facility] Work Phone: Reason for referral (narrative) Note Date & Type Note Facility Reason for referral (narrative) No reason for referral information available [facility] Work Phone: Family History No Family History Records Found Relationship Condition Age at Onset Recorded Date/T kraig Unknown Family History?Heart Disease Unknown February 10, 2018 2:27pm Family History?Heart Disease Unknown February 10, 2018 2:27pm Relationship Condition Age at Onset Recorded Date/T kraig Unknown Family History?Heart Disease Unknown February 10, 2018 1:27pm Family History?Heart Disease Unknown February 10, 2018 1:27pm Relationship Condition Age at Onset Recorded Date/T kraig Not Specified Diabetes mellitus Unknown Coronary artery disease Unknown Advance Directives No Advanced Directives Records Found Advance Directive Response Recorded Date/ Time Living Will No November 12 0 2:44pm Power of Railroad Car Painter No November 12 020 2:44pm Advance Directive Response Recorded Date/ Time Living Will No November 12 0 1:44pm Power of Railroad Car Painter No November 12 020 1:44pm Advance Directive Response Recorded Date/ Time Living Will No January 31, 2023 2:27am Power of Railroad Car Painter No January 31 2:27am Advance Directive Response Recorded Date/ Time Name of Medical Power of Railroad Car Painter [facility] February 15, 2024 8:52pm Living Will Yes February 15, 2024 8:52pm Power of Railroad Car Painter Yes February 14 8:52pm Advance Directive Response Recorded Date/ Time Name of Medical Power of Railroad Car Painter [facility] February 16, 2024 1:43am Living Will Yes February 16, 2024 1:43am Power of Railroad Car Painter Yes February 15 1:43am Chief Complaint and Reason for Visit Chief Complaint TOBACCO USER Chief Complaint TOBACCO USER cold symptoms Chief Complaint CHEST PAIN Reason for Visit Amaurosis fugax of r ight eye Chest pain Headache History of hypercholesterolemia Hypertensive urgency HTN (hypertension) Nicotine abuse Chief Complaint CHEST PAIN CHEST PAIN CHEST PAIN Reason for Visit Amaurosis fugax of r ight eye Chest pain D-dimer, elevated Headache History of hypercholesterolemia Hypertensive urgency HTN (hypertension) Nicotine abuse Chief Complaint Admit Date Encounter for surgical aftercare followi ng surgery March 18, 2025 8:45am Chief Complaint Admit Date Encounter for surgical aftercare followi ng surgery March 18, 2025 8:45am 1 Y FU April 14, 2025 1:59 pm Summary Purpose Additional Source Comments Goals (unrecognized section and content) Goals may be documented in a n alternate sectionGoals may be documented in an alternate sectionGoals may be documented in an alternate sectionGoals may be documented in an alternate sectionGoals may be documented in an alternate sectionGoals may be documented in an alternate sectionGoals may be documented in an alternate sectionGoals may be documented in an alternate sectionGoals may be documented in an alternate section Care Teams (unrecognized sec tion and content) Team Status: Active Member Role Status Dates Dr. Alexy Mclean MD Family Provider Active Dr. Alexy Mclean MD Primary Care Provider Activ e Team Status: Inactive Member Role Status Dates Dr. Alexy Mclean MD Primary Care Provider, Attending Provider, Referring Provider Active Team Status: Inactive Member Role Status Dates Dr. Alexy Mclean MD Primary Care Provider Activ e Dr. Anant Mares , Emergency Provider Active Team Status: Active Member Role Status Dates Dr. Alexy Mclean MD Primary Care Provider, Atte nding Provider Active Team Status: Inactive Member Role Status Dates Dr. Alexy Mclean MD Primary Care Provider, Atte nding Provider Active Team Status: Active Member Role Status Dates Dr. Aime Mclean MD Family Provider Active Dr. Aime Mclean MD Primary Care Provider Acti ve Team Status: Inactive Member Role Status Dates Dr. Aime Mclean MD Primary Care Provider, Att ending Provider Active Team Status: Active Member Role Status Dates Dr. Aime Mclean MD Primary Care Provider Acti ve Dr. Belle Mccoy DO Emergency Provider Active Dr. Adryan Cabrales DO Admit Provider, Attending Pr ovider Active Team Status: Active Member Role Status Dates Dr. Aime Mclean MD Primary Care Provider Acti ve Dr. Belle Mccoy , Emergency Provider Active Dr. Adryan Cabrales DO Admit Provider, Other Provid er Active Dr. Leeann Tiwari , DO Other Provider Active Dr. Keven Chamberlain MD Attending Provider Activ e Team Status: Active Member Role Status Dates Dr. Aime Mclean MD Primary Care Provider Acti ve Dr. Belle Mccoy , Emergency Provider Active Dr. Adryan Cabrales , DO Admit Provider, Other Provid er Active Dr. Leeann Tiwari , DO Attending Provider, Other Provide r Active Team Status: Inactive Member Role Status Dates Dr. Aime Mclean MD Primary Care Provider Acti ve Dr. Belle Mccoy , Emergency Provider Active Dr. Adryan Cabrales , DO Admit Provider, Other Provid er Active Dr. Leeann Tiwari , DO Attending Provider Active Team Status: Active Member Role Status Dates Dr. Aime Mclean MD Primary Care Provider Acti ve Team Status: Inactive Member Role Status Dates Dr. Aime Mclean MD Primary Care Provider Acti ve Start: March 18, 2025 End: March 18, 2025 SHAHEEN Bunch Attending Provider Active Star t: March 18, 2025 End: March 18, 2025 SHAHEEN Bunch Referring Provider Active Star t: March 18, 2025 End: March 18, 2025 Team Status: Active Member Role Status Dates Dr. Aime Mclean MD Primary Care Provider Acti ve Start: March 18, 2025 Dr. Anant Gutierres MD Attending Provider Active S tart: March 18, 2025 Team Status: Active Member Role Status Dates Dr. Aime Mclean MD Primary Care Provider Acti ve Start: March 18, 2025 Dr. Anant Gutierres MD Attending Provider Active S tart: March 18, 2025 SHAHEEN Bunch Referring Provider Active Star t: March 18, 2025 Team Status: Inactive Member Role Status Dates Dr. Aime Mclean MD Primary Care Provider Acti ve Start: April 14, 2025 End: April 14, 2025 Dr. Aime Mclean MD Referring Provider Active Start: April 14, 2025 End: April 14, 2025 SHAHEEN Bunch Attending Provider Active Star t: April 14, 2025 End: April 14, 2025 (unrecognized sect ion and content) No Status Records Found INFORMATION SOURCE (unrecogn ized section and content) DATE CREATED AUTHOR 04/19/2025 [facility] FOR RECORDS PERTAINING TO PATIENTS WHO ARE OR HAVE BEEN ENROLLED IN A CHEMICAL DEPENDENCY/SUBSTANCEABUSE PROGRAM, SOME INFORMATION MAY BE OMITTED. This clinical summary was aggregated from multiple sources. Caution should be exercised in using it in the provision of clinical care. This summary normalizes information from multiple sources, and as a consequence, information in this document may materially change the coding, format and clinical context of patient data. In addition, data may be omitted in some cases. CLINICAL DECISIONS SHOULD BE BASED ON THE PRIMARY CLINICAL RECORDS. [facility] [employer], [facility]. provides no warranty or guarantee of the accuracy or completeness of information in this document.
[2025-08-26 18:34] LABS: Hematocrit 40.8 % (40-54); Hemoglobin 14.2 g/dL (13.0-16.5); Mean Corp Hgb Conc 34.8 g/dL (32-36); Mean Corpuscular Volume 86.1 fL (80-94); Mean Platelet Vol. 11.3 fl (6.2-12.0); Platelet Count 217 K/mm3 (150-450); RBC Distribution Width CV 13.2 % (11.6-14.6); RBC Distribution Width SD 41.1 fl (35.1-43.9); Red Blood Count 4.74 M/mm3 (4.6-6.2); White Blood Count 5.5 K/mm3 (4.4-11.0)
[2025-08-26 18:40] LABS: AST(SGOT) 23 U/L (<=37); Alanine Aminotransfer ALT/SGPT 31 U/L (<=46); Albumin, Serum 4.0 g/dL (3.4-4.8); Alkaline Phosphatase 83 U/L (40-129); Anion Gap 12 (5-15); BUN 23 mg/dL (4-19); BUN/Creat Ratio 31.7 RATIO (10-20); Calcium,Total 9.8 mg/dL (7.6-11.0); Carbon Dioxide 25.2 mmol/L (21.0-32.0); Chloride 103 mmol/L (98-108); Cholesterol 163 mg/dL (<=200); Globulin 2.7 g/dL (2.2-4.2); Glucose 93 mg/dL (70-99); Low Density Lipoprotein Calc. 98 mg/dL; PSA,Total - Annual Screen 1.43 ng/mL (0.02-4.00); Potassium 3.7 mmol/L (3.3-5.1); Triglycerides 161 mg/dL; Very Low Density Lipoprotein 32 mg/dL (5-40); cholesterol:hdl ratio screen 4.39
== END | disposition home or self-care (01) ==
LOC: MFPLAB 14:43
PROVIDERS: PCP Family Medicine; Visit Provider Family Medicine
DX: Z12.5 Encounter for screening for malignant neoplasm of prostate (principal); I77.9 Disorder of arteries and arterioles, unspecified
CPT/HCPCS: 36415; 80053; 80061; 84153; 85027; G0103